=== PATIENT | female | born 1945 | race Hispanic/Latino ===

== ENCOUNTER 2017-11-18 13:34 | Emergency (ER) | payer BC ==
[2017-11-18 13:35] VITALS: BMI 27.1
[2017-11-18 14:04] VITALS: RESP 18; TEMP 97.5
--- NOTE | 2017-11-18 14:11 | ED PDOC ---
Arrival/HPI - General Chief Complaint: Back Pain Time Seen by Provider: 11/18/17 13:46 Historian: Patient, Family (sister) - History of Present Illness Narrative History of Present Illness (Text): 11/18/17 14:09 A 72 year old female, whose past medical history includes coronary stents x 2, pneumonia, cervix CA (10 yrs ago), hysterectomy, right hip replacement, kidney stones, abdominal hernia, and diverticulitis, presents to the emergency department complaining of left lower back and left-sided hip pain for several months. Describes pain as burning sensation and worsens with movement, ambulating and standing. Patient reports she has not been evaluated for symptoms. Notes also experiencing diarrhea for 1 1/2 weeks, and chronic leg cramps. Patient denies any dysuria, hematuria, nausea, vomiting, or any other complaints at this time. Currently takes Tylenol for pain with some relief. PMD: Dr. Rogers Time/Duration: Other (several months) Symptom Onset: Gradual Symptom Course: Unchanged Quality: Burning Past Medical History - Provider Review Nursing Documentation Reviewed: Yes - Infectious Disease Hx of Infectious Diseases: None - Tetanus Immunization Tetanus Immunization: Up to Date - Reproductive Menopause: Yes - Cardiac Hx Hypertension: Yes Other/Comment: varicose veins, 2 coronary stents - Pulmonary Hx Respiratory Disorders: No Hx Pneumonia: Yes - Neurological Other/Comment: bells palsy 3x's - HEENT Hx HEENT Disorder: Yes (reading glasses) - Renal Hx Kidney Stones: Yes (over 27 yrs ago) - Endocrine/Metabolic Hx Endocrine Disorders: No - Hematological/Oncological Hx Cancer: Yes (ca cervix about 10 yrs ago) Hx Chemotherapy: No (no chemo no radiation) - Integumentary Hx Dermatological Disorder: No - Musculoskeletal/Rheumatological Hx Falls: Yes (fell at work last year) - Gastrointestinal Hx Gastrointestinal Disorders: No Hx Diverticulitis: Yes - Genitourinary/Gynecological Hx Genitourinary Disorders: Yes - Psychiatric Hx Psychophysiologic Disorder: No Hx Substance Use: No - Surgical History Hx Cardiac Catheterization: Yes (STENT X2 2009) Hx Coronary Stent: Yes (x2 2009) Hx Hysterectomy: Yes (ca cervix about 10 yrs ago) Hx Orthopedic Surgery: Yes (R HIP REPLACEMENT 2003) Other/Comment: abd hernia sx, colon polyp removed, bilateral bunyons removed at 12 yrs old, right foot sx for bunyon and callous removal about 2 yrs ago, blader cyst and repair - Anesthesia Hx Anesthesia: Yes Hx Anesthesia Reactions: No Hx Malignant Hyperthermia: No - Suicidal Assessment Feels Threatened In Home Enviroment: No Family/Social History - Physician Review Nursing Documentation Reviewed: Yes Family/Social History: No Known Family HX Smoking Status: Former Smoker Hx Alcohol Use: No Hx Substance Use: No Hx Substance Use Treatment: No Allergies/Home Meds Allergies/Adverse Reactions: Allergies No Known Allergies Allergy (Verified 11/18/17 14:00) Home Medications: Home Meds Medication Instructions Recorded Confirmed Alendronate Sodium 70 mg PO MON 03/06/13 11/18/17 Aspirin [Aspir 81] 81 mg PO DAILY 03/06/13 11/18/17 Clopidogrel [Plavix] 75 mg PO DAILY 11/18/17 11/18/17 Losartan/Hydrochlorothiazide 1 each PO DAILY 11/18/17 11/18/17 [Losartan-Hctz 100-12.5 mg Tab] Simvastatin [Zocor] 20 mg PO DAILY 11/18/17 11/18/17 Review of Systems - Physician Review All systems were reviewed & negative as marked: Yes - Review of Systems Gastrointestinal: Diarrhea (past 1/2 weeks). absent: Nausea, Vomiting Genitourinary Female: absent: Dysuria, Hematuria Musculoskeletal: Back Pain (left lower side), Other (left hip pain) Physical Exam - Physical Exam Narrative Physical Exam (Text): Constitutional: No acute distress. Head: Normocephalic. Atraumatic. Eyes: PERRL. ENT: Moist mucous membranes. Neck: Supple. Cardiovascular: Regular rate. Chest: No tenderness. Respiratory: Clear to auscultation bilaterally. GI: Soft. Nontender. Nondistended. Back: No CVA tenderness. No midline tenderness. Musculoskeletal: No tenderness or swelling of extremities. Full ROM to hip. Skin: No rash. Neurologic: Alert, no focal deficit. Vital Signs Temp Pulse Resp BP Pulse Ox 11/18/17 16:18 73 18 121/63 99 11/18/17 14:03 97.5 F L 54 L 18 130/66 97 Medical Decision Making ED Course and Treatment: 11/18/17 14:12 Impression: 72 year old female with left lower back and left-side hip pain. Physical exam shows no rash; full ROM to hip; no midline tenderness to back. Plan: -- Abd/Pelvis CT -- Labs -- Toradol -- Urinalysis -- Reassess and disposition Progress Notes: - Lab Interpretations Lab Results: 11/18/17 14:20 11/18/17 14:20 Lab Results 11/18/17 15:00: Urine Color Yellow, Urine Appearance Clear, Urine pH 6.0, Ur Specific Cement 1.020, Urine Protein Negative, Urine Glucose (UA) Negative, Urine Ketones Negative, Urine Blood Negative, Urine Nitrate Negative, Urine Bilirubin Negative, Urine Urobilinogen 0.2, Ur Leukocyte Esterase Trace H, Urine RBC 1 - 3, Urine WBC 0 - 2, Ur Epithelial Cells None 11/18/17 14:20: Sodium 140, Potassium 3.7, Chloride 102, Carbon Dioxide 29, Anion Gap 13, BUN 17, Creatinine 0.7, Est GFR ( Amer) > 60, Est GFR (Non- Af Amer) > 60, Random Glucose 112 H, Calcium 9.9, Total Bilirubin 0.5, AST 36, ALT 42, Alkaline Phosphatase 56, Total Protein 7.1, Albumin 4.3, Globulin 2.8, Albumin/Globulin Ratio 1.5 11/18/17 14:20: WBC 6.7, RBC 4.04, Hgb 12.3, Hct 35.2 L, MCV 87.1, MCH 30.4, MCHC 34.9, RDW 13.2, Plt Count 193, MPV 9.0, Gran % 63.0, Lymph % (Auto) 21.5 L , Rankin % (Auto) 13.0 H, Eos % (Auto) 1.8, Baso % (Auto) 0.7, Gran # 4.21, Lymph # (Auto) 1.4, Rankin # (Auto) 0.9 H, Eos # (Auto) 0.1, Baso # (Auto) 0.05 I have reviewed the lab results: Yes - RAD Interpretation Radiology Orders: 11/18/17 14:12 ABD & PELVIS IV CONTRAST ONLY [CT] Stat - Medication Orders Current Medication Orders: Discontinued Medications Ketorolac Tromethamine (Toradol) 10 mg IVP STAT STA Stop: 11/18/17 14:12 Last Admin: 11/18/17 14:31 Dose: 10 mg MAR Pain Assessment Document 11/18/17 14:31 MOLLY (Rec: 11/18/17 14:31 MOLLY [id number]) Pain Reassessment Is this a pain reassessment? No Presence of Pain Presence of Pain Yes Pain Scale Used Pain Scale Used Numeric Location Left, Right or Bilateral Left Pain Location Body Site Hip Description Description Constant IVP Administration Document 11/18/17 14:31 LA (Rec: 11/18/17 14:31 LA [id number]) Charges for Administration # of IVP Administrations 1 Re-Assess: MAR Pain Assessment Document 11/18/17 15:31 LA (Rec: 11/18/17 15:59 LA [id number]) Pain Reassessment Is this a pain reassessment? Yes Sleep Is patient sleeping during reassessment? No Presence of Pain Presence of Pain No Pain Scale Used Pain Scale Used Numeric Location Left, Right or Bilateral Left Pain Location Body Site Hip Description Intensity of Pain at present 0 - Scribe Statement The provider has reviewed the documentation as recorded by the Leilani Wilson Provider Scribe Attestation: All medical record entries made by the Leilani were at my direction and personally dictated by me. I have reviewed the chart and agree that the record accurately reflects my personal performance of the history, physical exam, medical decision making, and the department course for this patient. I have also personally directed, reviewed, and agree with the discharge instructions and disposition. Disposition/Present on Arrival - Present on Arrival Any Indicators Present on Arrival: No History of DVT/PE: No History of Uncontrolled Diabetes: No Urinary Catheter: No History of Decub. Ulcer: No History Surgical Site Infection Following: None - Disposition Have Diagnosis and Disposition been Completed?: Yes Diagnosis: Back pain Disposition: HOME/ ROUTINE Disposition Time: 16:21 Patient Plan: Discharge Condition: STABLE Discharge Instructions (ExitCare): Low Back Pain (DC) Additional Instructions: FINDINGS: LOWER THORAX: Unremarkable. LIVER: Unremarkable. No gross lesion or ductal dilatation. GALLBLADDER AND BILE DUCTS: Unremarkable. PANCREAS: Unremarkable. No gross lesion or ductal dilatation. SPLEEN: Unremarkable. ADRENALS: Unremarkable. No mass. KIDNEYS AND URETERS: Unremarkable. No hydronephrosis. No solid mass. VASCULATURE: Unremarkable. No aortic aneurysm. BOWEL: Unremarkable. No obstruction. No gross mural thickening. APPENDIX: Normal appendix. PERITONEUM: Unremarkable. No free fluid. No free air. LYMPH NODES: Unremarkable. No enlarged lymph nodes. BLADDER: Unremarkable. REPRODUCTIVE: Unremarkable. BONES: No acute fracture. OTHER FINDINGS: None. IMPRESSION: No acute intra-abdominal findings. No evidence of diverticulitis or urolithiasis Referrals: Scooter Rogers MD [Primary Care Provider] - Follow up with primary Forms: [employer] ([place])
[2017-11-18 14:46] LABS: BASO # 0.05 K/mm3 (0.0-2.0); BASO % 0.7 % (0.0-3.0); EOS # 0.1 (0.0-0.7); EOS % 1.8 % (1.5-5.0); GRAN # 4.21 (1.4-6.5); HEMOGLOBIN 12.3 g/dL (12.0-16.0); LYMPH # 1.4 (1.2-3.4); LYMPH % 21.5 % (22.0-35.0); MEAN CELL VOLUME 87.1 fl (80.0-105.0); MEAN CORPUSCULAR HEMOGLOBIN 30.4 pg (25.0-35.0); MEAN CORPUSCULAR HGB CONC 34.9 g/dl (31.0-37.0); MONO # 0.9 (0.1-0.6); RBC 4.04 10^6/uL (3.5-6.1); RED CELL DISTRIBUTION WIDTH 13.2 % (11.5-14.5); WHITE BLOOD COUNT 6.7 10^3/ul (4.5-11.0)
[2017-11-18 14:56] LABS: ALB/GLOB RATIO 1.5 (1.1-1.8); ALBUMIN 4.3 g/dL (3.0-4.8); ALT/SGPT 42 U/L (7-56); AST/SGOT 36 U/L (14-36); BLOOD UREA NITROGEN 17 mg/dL (7-21); CALCIUM 9.9 mg/dL (8.4-10.5); GFR AFRICAN-AMERICAN > 60; GFR NON-AFRICAN AMERICAN > 60
[2017-11-18] MEDS ORDERED: Iohexol 350 MG/100 ML VIAL ONE (15:17)
[2017-11-18 15:26] LABS: URINE BILIRUBIN NEGATIVE (NEGATIVE); URINE BLOOD NEGATIVE (NEGATIVE); URINE GLUCOSE (UA) NEGATIVE (NEGATIVE); URINE LEUKOCYTE ESTERASE TRACE Leu/uL (NEGATIVE); URINE PROTEIN NEGATIVE mg/dL (<30 mg/dL); URINE UROBILINOGEN 0.2 E.U./dL (<1 E.U./dL)
[2017-11-18 15:27] LABS: URINE APPEARANCE CLEAR (CLEAR); URINE COLOR YELLOW (YELLOW)
[2017-11-18 15:39] LABS: URINE WBC 0 - 2 /hpf (0-6)
--- NOTE | 2017-11-18 16:18 | CT ---
PROCEDURE: CT Abdomen and Pelvis with contrast HISTORY: L flank pain, h/o diverticulitis, kidney stone COMPARISON: 03/12/2014 CT TECHNIQUE: Contrast dose: 100 cc of Omni 350 Radiation dose: Total exam DLP = 797 mGy-cm. This CT exam was performed using one or more of the following dose reduction techniques: Automated exposure control, adjustment of the mA and/or kV according to patient size, and/or use of iterative reconstruction technique. FINDINGS: LOWER THORAX: Unremarkable. LIVER: Unremarkable. No gross lesion or ductal dilatation. GALLBLADDER AND BILE DUCTS: Unremarkable. PANCREAS: Unremarkable. No gross lesion or ductal dilatation. SPLEEN: Unremarkable. ADRENALS: Unremarkable. No mass. KIDNEYS AND URETERS: Unremarkable. No hydronephrosis. No solid mass. VASCULATURE: Unremarkable. No aortic aneurysm. BOWEL: Unremarkable. No obstruction. No gross mural thickening. APPENDIX: Normal appendix. PERITONEUM: Unremarkable. No free fluid. No free air. LYMPH NODES: Unremarkable. No enlarged lymph nodes. BLADDER: Unremarkable. REPRODUCTIVE: Unremarkable. BONES: No acute fracture. OTHER FINDINGS: None. IMPRESSION: No acute intra-abdominal findings. No evidence of diverticulitis or urolithiasis
[2017-11-18 16:19] VITALS: BP 121/63; PULSE 73; O2SAT 99
== END 2017-11-18 16:59 | disposition home or self-care (01) ==
LOC: ED 13:34
DX: M54.5 Low back pain (principal); I10 Essential (primary) hypertension; Z87.891 Personal history of nicotine dependence
CPT/HCPCS: 74177; 80053; 81001; 85025; 87086; 87181; 96374; 99284; J1885; Q9967

== ENCOUNTER 2017-12-09 15:53 | Emergency (ER) | payer BC ==
[2017-12-09 16:01] VITALS: RESP 18; TEMP 98; BMI 28.1
--- NOTE | 2017-12-09 17:01 | ED PDOC ---
Arrival/HPI - General Time Seen by Provider: 12/09/17 16:00 - History of Present Illness Narrative History of Present Illness (Text): 12/09/17 16:34 Pt is a 72 ruben old female with a past medical history of falls and low back pain , that presents with leg, buttock, upper back/neck and rib pain s/p fall off a cement step (approx 7" in ht) while visiting family for [employer], 5 days ago. Pt described walking down the steps from the house and as she got to the last step , her right foot slipped off causing her knee to bend and she fell back on her upper back and hit her head. Pt got up with the help of family and 'walked it off'. Describes significant right anterior thigh bruising (due to being on Plavix) but had moderate to severe upper back and neck pain that night. She reports icing the leg, but feels now she has rib pain, especially when inhaling deeply. Denies LOC, numbness, loss of bladder or bowel, shortness of breath, chest pain or any other complaints. Time/Duration: < week Symptom Onset: Sudden Symptom Course: Improving, Intermittent Quality: Aching, Pressure Severity Level: 5 Activities at Onset: Rest, Sleeping Context: Home Past Medical History - Provider Review Nursing Documentation Reviewed: Yes - Travel History Have you recently traveled outside [place] w/in the past 3 mons?: No - Infectious Disease Hx of Infectious Diseases: None - Tetanus Immunization Tetanus Immunization: Up to Date - Cardiac Hx Hypertension: Yes Other/Comment: varicose veins, 2 coronary stents - Pulmonary Hx Respiratory Disorders: No Hx Pneumonia: Yes - Neurological Other/Comment: bells palsy 3x's - HEENT Hx HEENT Disorder: Yes (reading glasses) - Renal Hx Kidney Stones: Yes (over 27 yrs ago) - Endocrine/Metabolic Hx Endocrine Disorders: No - Hematological/Oncological Hx Cancer: Yes (ca cervix about 10 yrs ago) Hx Chemotherapy: No (no chemo no radiation) - Integumentary Hx Dermatological Disorder: No - Musculoskeletal/Rheumatological Hx Falls: Yes (fell at work last year) - Gastrointestinal Hx Gastrointestinal Disorders: No Hx Diverticulitis: Yes - Genitourinary/Gynecological Hx Genitourinary Disorders: Yes - Psychiatric Hx Psychophysiologic Disorder: No Hx Substance Use: No - Surgical History Hx Cardiac Catheterization: Yes (STENT X2 2009) Hx Coronary Stent: Yes (x2 2009) Hx Hysterectomy: Yes (ca cervix about 10 yrs ago) Hx Orthopedic Surgery: Yes (R HIP REPLACEMENT 2003) Other/Comment: abd hernia sx, colon polyp removed, bilateral bunyons removed at 12 yrs old, right foot sx for bunyon and callous removal about 2 yrs ago, blader cyst and repair - Anesthesia Hx Anesthesia: Yes Hx Anesthesia Reactions: No Hx Malignant Hyperthermia: No - Suicidal Assessment Feels Threatened In Home Enviroment: No Family/Social History - Physician Review Nursing Documentation Reviewed: Yes Family/Social History: Unknown Family HX Smoking Status: Former Smoker Hx Alcohol Use: No Hx Substance Use: No Hx Substance Use Treatment: No Allergies/Home Meds Allergies/Adverse Reactions: Allergies No Known Allergies Allergy (Verified 11/18/17 14:00) Home Medications: Home Meds Medication Instructions Recorded Confirmed Alendronate Sodium 70 mg PO MON 03/06/13 11/18/17 Aspirin [Aspir 81] 81 mg PO DAILY 03/06/13 11/18/17 Clopidogrel [Plavix] 75 mg PO DAILY 11/18/17 11/18/17 Losartan/Hydrochlorothiazide 1 each PO DAILY 11/18/17 11/18/17 [Losartan-Hctz 100-12.5 mg Tab] Simvastatin [Zocor] 20 mg PO DAILY 11/18/17 11/18/17 Review of Systems - Review of Systems Constitutional: Normal Eyes: Normal ENT: Normal Respiratory: Normal Cardiovascular: Normal Gastrointestinal: Normal Genitourinary Female: Normal Musculoskeletal: Normal, Back Pain, Neck Pain Skin: Normal Neurological: Normal Endocrine: Normal Hemo/Lymphatic: Normal Psychiatric: Normal Physical Exam Vital Signs Reviewed: Yes Vital Signs Temp Pulse Resp BP Pulse Ox 12/09/17 18:04 72 18 140/82 99 12/09/17 18:00 75 18 141/74 97 12/09/17 16:00 98.0 F 80 18 146/79 97 Temperature: Afebrile Blood Pressure: Normal Pulse: Regular Respiratory Rate: Normal Appearance: Positive for: Well-Appearing, Non-Toxic, Comfortable Pain Distress: Mild Mental Status: Positive for: Alert and Oriented X 3 - Systems Exam Head: Present: Atraumatic, Normocephalic Pupils: Present: PERRL Extroacular Muscles: Present: EOMI Conjunctiva: Present: Normal Mouth: Present: Moist Mucous Membranes Neck: Present: Normal Range of Motion Respiratory/Chest: Present: Clear to Auscultation, Good Air Exchange. No: Respiratory Distress, Accessory Muscle Use Cardiovascular: Present: Regular Rate and Rhythm, Normal S1, S2. No: Murmurs Abdomen: No: Tenderness, Distention, Peritoneal Signs Back: Present: Normal Inspection, Midline Tenderness (cervical paraspinals) Upper Extremity: Present: Normal Inspection, Normal ROM, NORMAL PULSES, Tenderness (cervical paraspinals). No: Cyanosis, Edema Lower Extremity: Present: Normal Inspection, NORMAL PULSES, Normal ROM, Tenderness (right anterior thigh), Swelling (right anterior thigh), Erythema ( right anterior thigh), Capillary Refill < 2 s. No: Edema, CALF TENDERNESS, Cyanosis, Deformity, Temperature Abnormalties Neurological: Present: GCS=15, CN II-XII Intact, Speech Normal Skin: Present: Warm, Dry, Normal Color, Abrasion (left glute ). No: Rashes Psychiatric: Present: Alert, Oriented x 3, Normal Insight, Normal Concentration Medical Decision Making ED Course and Treatment: 12/09/17 17:01 Impression Pt is a 72 ruben old female with a past medical history of falls and low back pain , that presents with leg, buttock, upper back/neck and rib pain s/p fall off a cement step (approx 7" Ht) while visiting family for [facility], 5 days ago. On exam, motor and nerve intact x 4, healing contusion of the right anterior thigh along with a minor left gluteal abrasion, point tenderness of the cervical and thoracic paraspinals, cervical ROM limited by pain Plan CS and TS XR Chest and Rib XR bilateral Progress Note 12/09/17 17:10 Discussed results and counselled on homecare; f/u with PMD Suggested Occupational therapy for fall prevention given that she has a h/o falling Ambulated well out of the ED - RAD Interpretation Narrative RAD Interpretations (Text): 12/09/17 17:46 RIGHT RIBS: No fracture or focal lesion visualized. LEFT RIBS: No fracture or focal lesion visualized. LUNGS: Clear. PLEURA: No pneumothorax or pleural fluid. CARDIOVASCULAR: Normal sized heart. No pulmonary vascular congestion. OTHER FINDINGS: None. IMPRESSION: Unremarkable radiographs of the chest and bilateral ribs. No displaced rib fracture. BONES: Mild rotary scoliosis. No fracture identified. DISC SPACES: Multilevel degenerative changes primarily disc space narrowing and non marginal osteophyte formation. SOFT TISSUES: Normal. No prevertebral soft tissue swelling. OTHER FINDINGS: None. IMPRESSION: No acute findings related to/accounting for the clinical presentation. Head CT w/o contrast IMPRESSION: No acute intracranial abnormalities. No significant findings to account for the clinical presentation. No significant interval change compared to the prior examination(s). 12/09/17 17:50 Radiology Orders: 12/09/17 16:28 CERVICAL SPINE AP & LATERAL [RAD] Stat 12/09/17 16:32 RIBS BILATERAL W/PA CHEST [RAD] Stat 12/09/17 17:16 HEAD W/O CONTRAST [CT] Stat Commercial Service Technician: Radiologist Disposition/Present on Arrival - Present on Arrival Any Indicators Present on Arrival: Yes History of DVT/PE: No History of Uncontrolled Diabetes: No Urinary Catheter: No History Surgical Site Infection Following: None - Disposition Have Diagnosis and Disposition been Completed?: Yes Diagnosis: Back pain due to injury, Contusion Disposition: HOME/ ROUTINE Disposition Time: 17:53 Patient Plan: Discharge Condition: GOOD Discharge Instructions (ExitCare): Taking Care of Bruises, Upper Back Pain (DC) , Preventing Falls, Standing Balance Exercises, Beginner, Bruised Rib (DC) Additional Instructions: Alona, thank you for letting us take care of you today. Your provider was LARISSA Conte. You were treated for a fall injury. The emergency medical care you received today was directed at your acute symptoms. If you were prescribed any medication, please fill it and take as directed. It may take several days for your symptoms to resolve. Return to the Emergency Department if your symptoms worsen, do not improve, or if you have any other problems. We recommend that you talk to your doctor about receiving either Physical Therapy or Occupational Therapy that can assist you with a Fall Prevention Program. Please contact your doctor or call one of the physicians/clinics you have been referred to that are listed on the Patient Visit Information form that is included in your discharge packet. Bring any paperwork you were given at discharge with you along with any medications you are taking to your follow up visit. Our treatment cannot replace ongoing medical care by a primary care provider (PCP) outside of the emergency department. Thank you for allowing the [facility] team to be part of your care today. Prescriptions: Acetaminophen [Acetaminophen Extra Strength] 500 mg PO Q6 #20 tablet Referrals: Scooter Rogers MD [Primary Care Provider] - Follow up with primary Forms: WORK NOTE
--- NOTE | 2017-12-09 17:31 | RAD ---
PROCEDURE: Cervical Spine Radiographs. HISTORY: Posttraumatic pain COMPARISON: None. FINDINGS: BONES: Mild rotary scoliosis. No fracture identified. DISC SPACES: Multilevel degenerative changes primarily disc space narrowing and non marginal osteophyte formation. SOFT TISSUES: Normal. No prevertebral soft tissue swelling. OTHER FINDINGS: None. IMPRESSION: No acute findings related to/accounting for the clinical presentation.
--- NOTE | 2017-12-09 17:32 | RAD ---
PROCEDURE: Radiographs of the chest and bilateral ribs HISTORY: Unspecified injury. COMPARISON: None available. TECHNIQUE: Frontal radiograph of the chest and multiple oblique radiographs of the bilateral ribs were obtained. FINDINGS: RIGHT RIBS: No fracture or focal lesion visualized. LEFT RIBS: No fracture or focal lesion visualized. LUNGS: Clear. PLEURA: No pneumothorax or pleural fluid. CARDIOVASCULAR: Normal sized heart. No pulmonary vascular congestion. OTHER FINDINGS: None. IMPRESSION: Unremarkable radiographs of the chest and bilateral ribs. No displaced rib fracture.
--- NOTE | 2017-12-09 17:50 | CT ---
PROCEDURE: CT HEAD WITHOUT CONTRAST. HISTORY: head injury COMPARISON: 04/25/2015. CT head 04/26/2015 MRI brain TECHNIQUE: Axial computed tomography images were obtained through the head/brain without intravenous contrast. Coronal and sagittal reconstructed images. Radiation dose: Total exam DLP = 907.95 mGy-cm. This CT exam was performed using one or more of the following dose reduction techniques: Automated exposure control, adjustment of the mA and/or kV according to patient size, and/or use of iterative reconstruction technique. FINDINGS: HEMORRHAGE: No intracranial hemorrhage. BRAIN: No mass effect or edema. Cortical atrophy, periventricular small vessel disease. VENTRICLES: Unremarkable. No hydrocephalus. CALVARIUM: Unremarkable. PARANASAL SINUSES: Unremarkable as visualized. No significant inflammatory changes. MASTOID AIR CELLS: Unremarkable as visualized. No inflammatory changes. OTHER FINDINGS: None. IMPRESSION: No acute intracranial abnormalities. No significant findings to account for the clinical presentation. No significant interval change compared to the prior examination(s).
[2017-12-09 18:23] VITALS: BP 140/82; PULSE 72; O2SAT 99
== END 2017-12-09 18:04 | disposition home or self-care (01) ==
LOC: ED 15:53
DX: M54.9 Dorsalgia, unspecified (principal); S70.11XA Contusion of right thigh, initial encounter; W10.9XXA Fall (on) (from) unspecified stairs and steps, initial encounter; Y92.89 Other specified places as the place of occurrence of the external cause

== ENCOUNTER 2018-06-09 06:25 | Day surgery (SDC) | payer BC ==
[2018-06-06 16:05] VITALS: BMI 27.3
[2018-06-09] MEDS ORDERED: Sodium Chloride 0.9% 1,000 ML IV SCH (07:45)
[2018-06-09] MEDS ORDERED: Propofol 10 mg/ml Inj (20 ML) ONE (07:48)
[2018-06-09] MEDS ORDERED: Etomidate 20 mg/10ml Inj IV ONE (07:48)
[2018-06-09] MEDS ORDERED: Phenylephrine 10 mg/ml Inj ONE (07:59)
[2018-06-09] MEDS ORDERED: ePHEDrine 50 mg/ml Inj ONE (08:12)
[2018-06-09 09:14] VITALS: O2SAT 98
[2018-06-09 10:38] VITALS: BP 129/61; PULSE 51; RESP 16; TEMP 97.7
== END 2018-06-09 10:20 | disposition home or self-care (01) ==
LOC: ENDO 06:25
PROVIDERS: ATTEND Specialist
DX: D12.3 Benign neoplasm of transverse colon (principal); K63.5 Polyp of colon; K57.30 Diverticulosis of large intestine without perforation or abscess without bleeding; K59.00 Constipation, unspecified; K64.8 Other hemorrhoids; I25.10 Atherosclerotic heart disease of native coronary artery without angina pectoris; M81.0 Age-related osteoporosis without current pathological fracture
CPT/HCPCS: 45385; 88305; J2001; J2370; J2704; J7030; J7040

== ENCOUNTER 2018-08-24 16:09 | Observation (INO) | payer BC ==
[2018-08-24 16:09] VITALS: BMI 27.3
[2018-08-24] MEDS ORDERED: Morphine 4 mg/ml ISec IVP STA ×2 (16:30→18:03)
[2018-08-24] MEDS ORDERED: TDAP Vaccine 0.5 mL Syr IM ONE (16:30)
[2018-08-24 17:16] LABS: BASO # 0.03 K/mm3 (0.0-2.0); BASO % 0.4 % (0.0-3.0); EOS # 0.1 (0.0-0.7); EOS % 1.9 % (1.5-5.0); GRAN # 4.92 (1.4-6.5); GRAN % 71.1 % (50.0-68.0); LYMPH # 1.3 (1.2-3.4); LYMPH % 18.4 % (22.0-35.0); MEAN CELL VOLUME 86.6 fl (80.0-105.0); MEAN CORPUSCULAR HEMOGLOBIN 29.9 pg (25.0-35.0); MEAN CORPUSCULAR HGB CONC 34.5 g/dl (31.0-37.0); MEAN PLATELET VOLUME 8.6 fl (7.0-11.0); MONO # 0.6 (0.1-0.6); MONO % 8.2 % (1.0-6.0); RBC 4.02 10^6/uL (3.5-6.1); RED CELL DISTRIBUTION WIDTH 12.9 % (11.5-14.5); WHITE BLOOD COUNT 6.9 10^3/uL (4.5-11.0)
[2018-08-24 17:19] LABS: INR 0.93; PARTIAL THROMBOPLASTIN TIME 28.1 Seconds (25.1-36.5); PROTHROMBIN TIME 10.6 SECONDS (9.4-12.5)
--- NOTE | 2018-08-24 17:24 | ED PDOC ---
Arrival/HPI - General Chief Complaint: Trauma Time Seen by Provider: 08/24/18 16:20 Historian: Patient, Family (Sister) - History of Present Illness Time/Duration: Prior to Arrival Symptom Onset: Sudden Symptom Course: Unchanged Severity Level: Severe Context: Walking Associated Symptoms (Text): 08/24/18 17:21 patient tripped and fell down 6 outdoor steps just prior to arrival injuring her lower back and her left lateral proximal tibia. She hit her head, but there was no loss of consciousness syncope dizziness lightheadedness numbness tingling or paresthesias. No weakness. No neck pain. No chest pain palpitations or dyspnea. No abdominal pain nausea or vomiting. No other extremity trauma. She needs tetanus immunization. Past Medical History - Infectious Disease Hx of Infectious Diseases: None - Tetanus Immunization Tetanus Immunization: Up to Date - Cardiac Hx Pacemaker: No - Pulmonary Hx Respiratory Disorders: No Hx Pneumonia: Yes - Neurological Other/Comment: bells palsy 3x's - HEENT Hx HEENT Disorder: Yes (reading glasses) - Renal Hx Kidney Stones: Yes (over 27 yrs ago) - Endocrine/Metabolic Hx Endocrine Disorders: No - Hematological/Oncological Hx Blood Transfusions: Yes Hx Blood Transfusion Reaction: No - Integumentary Hx Dermatological Disorder: No - Musculoskeletal/Rheumatological Hx Musculoskeletal Disorders: Yes - Gastrointestinal Hx Gastrointestinal Disorders: No Hx Diverticulitis: Yes - Genitourinary/Gynecological Hx Genitourinary Disorders: Yes - Psychiatric Hx Emotional Abuse: No Hx Physical Abuse: No Hx Substance Use: No - Surgical History Hx Cardiac Catheterization: Yes (STENT X2 2009) Hx Coronary Stent: Yes (x2 2009) Hx Hysterectomy: Yes (ca cervix about 10 yrs ago) Hx Orthopedic Surgery: Yes (R HIP REPLACEMENT 2003) Other/Comment: abd hernia sx, colon polyp removed, bilateral bunyons removed at 12 yrs old, right foot sx for bunyon and callous removal about 2 yrs ago, blader cyst and repair - Anesthesia Hx Anesthesia Reactions: No Hx Malignant Hyperthermia: No - Suicidal Assessment Feels Threatened In Home Enviroment: No Family/Social History - Physician Review Nursing Documentation Reviewed: Yes Family/Social History: Unknown Family HX Smoking Status: Former Smoker (quit smoking many years ago) Hx Alcohol Use: Yes (SOCIAL) Frequency of alcohol use: Socially Hx Substance Use: No Hx Substance Use Treatment: No Allergies/Home Meds Allergies/Adverse Reactions: Allergies No Known Allergies Allergy (Verified 08/24/18 16:25) Home Medications: Home Meds Medication Instructions Recorded Confirmed Alendronate Sodium 70 mg PO MON 03/06/13 08/24/18 Aspirin [Aspir 81] 81 mg PO DAILY 03/06/13 08/24/18 Clopidogrel [Plavix] 75 mg PO DAILY 11/18/17 08/24/18 Losartan/Hydrochlorothiazide 1 each PO DAILY 11/18/17 08/24/18 [Losartan-Hctz 100-12.5 mg Tab] Simvastatin [Zocor] 20 mg PO DAILY 11/18/17 08/24/18 Cholecalciferol (Vitamin D3) 1,000 unit PO DAILY 06/06/18 08/24/18 [Vitamin D3] Gabapentin [Neurontin] 100 mg PO DAILY 06/06/18 08/24/18 Multivitamin [Multivitamins] 1 each PO DAILY 06/06/18 08/24/18 Ranitidine HCl [Sunmark Acid 150 mg PO BID 06/06/18 08/24/18 Machine Shop Supervisor] Topiramate [Topamax] 50 mg PO HS 06/06/18 08/24/18 Review of Systems - Physician Review All systems were reviewed & negative as marked: Yes - Review of Systems Constitutional: Normal Respiratory: Normal Cardiovascular: Normal Gastrointestinal: Normal Musculoskeletal: Back Pain. absent: Neck Pain Neurological: Normal. absent: Headache, Dizziness, Focal Weakness Physical Exam Vital Signs Temp Pulse Resp BP Pulse Ox 08/24/18 16:21 97.5 F L 51 L 18 134/70 100 Temperature: Afebrile Blood Pressure: Normal Pulse: Regular Respiratory Rate: Normal Appearance: Positive for: Well-Appearing, Non-Toxic, Comfortable, Uncomfortable Pain Distress: Moderate Mental Status: Positive for: Alert and Oriented X 3 - Systems Exam Head: Present: Atraumatic, Normocephalic. No: Tenderness, Contusion, Swelling, Ecchymosis, Abrasion, Laceration Pupils: Present: PERRL Extroacular Muscles: Present: EOMI Conjunctiva: Present: Normal Ears: Present: NORMAL TM, Normal Canal. No: Erythema Neck: Present: Normal Range of Motion. No: MIDLINE TENDERNESS, Paraspinal Tenderness Respiratory/Chest: Present: Clear to Auscultation, Good Air Exchange, Decreased Breath Sounds. No: Respiratory Distress, Accessory Muscle Use, Tender to Palpation Cardiovascular: Present: Regular Rate and Rhythm, Normal S1, S2. No: Murmurs Abdomen: No: Tenderness, Distention, Peritoneal Signs, Rebound, Guarding Back: Present: Normal Inspection, Midline Tenderness (lower lumbar midline tenderness), Paraspinal Tenderness (lower lumbar bilateral paraspinous lumbar tenderness). No: CVA Tenderness Upper Extremity: Present: Normal Inspection. No: Cyanosis, Edema Lower Extremity: Present: Normal ROM, Tenderness, Swelling, Deformity, Neurovascularly Intact, Other (large left lateral proximal tibia and fibular hematoma with tenderness swelling abrasion. Full range of motion.). No: Normal Inspection, Edema, CALF TENDERNESS Neurological: Present: GCS=15, CN II-XII Intact, Speech Normal, Motor Func Grossly Intact, Normal Cerebellar Funct Skin: Present: Warm, Dry, Normal Color. No: Rashes Psychiatric: Present: Alert, Oriented x 3, Normal Insight, Normal Concentration Medical Decision Making ED Course and Treatment: 08/24/18 18:03 patient has returned from CT scan and x-ray. Minimal improvement in her pain. Additional morphine has been ordered. 08/24/18 18:39 patient lives alone and does not think that she will be able to ambulate and care for herself. Discussed with and patient will be placed on a [facility] observation bed. 08/24/18 18:39 CT scan of the lumbosacral spine as read by the radiologist shows no acute fracture. - Lab Interpretations Lab Results: 08/24/18 17:05 Lab Results 08/24/18 17:05: PT 10.6, INR 0.93, APTT 28.1 08/24/18 17:05: WBC 6.9, RBC 4.02, Hgb 12.0, Hct 34.8 L, MCV 86.6, MCH 29.9, MCHC 34.5, RDW 12.9, Plt Count 200, MPV 8.6, Gran % 71.1 H, Lymph % (Auto) 18.4 L, [place] % (Auto) 8.2 H, Eos % (Auto) 1.9, Baso % (Auto) 0.4, Gran # 4.92, Lymph # (Auto) 1.3, [place] # (Auto) 0.6, Eos # (Auto) 0.1, Baso # (Auto) 0.03 - RAD Interpretation Radiology Orders: 08/24/18 16:27 LUMBAR SPINE W/O CONTRAST [CT] Stat 08/24/18 16:28 TIBIA FIBULA LEFT [RAD] Stat 08/24/18 16:29 CHEST ONE VIEW [RAD] Stat chest one view shows no infiltrate effusion or cardiomegaly or pneumothorax. Left tibia and fibula shows no fracture or dislocation. Chinese Instructor: ED Physician - Medication Orders Current Medication Orders: Discontinued Medications Morphine Sulfate (Morphine) 4 mg IVP STAT STA Stop: 08/24/18 16:31 Last Admin: 08/24/18 17:05 Dose: 4 mg MAR Pain Assessment Document 08/24/18 17:05 [facility] (Rec: 08/24/18 17:05 [id number] Pain Reassessment Is this a pain reassessment? Yes Sleep Is patient sleeping during reassessment? No Presence of Pain Presence of Pain Yes Pain Scale Used Protocol: PSCALES Pain Scale Used Numeric Location Left, Right or Bilateral Bilateral Pain Location Body Site Virgen Leg Description Description Constant IVP Administration Document 08/24/18 17:05 [facility] (Rec: 08/24/18 17:05 [id number] Charges for Administration # of IVP Administrations 1 Ondansetron HCl (Zofran Inj) 4 mg IVP ONCE ONE Stop: 08/24/18 16:31 Last Admin: 08/24/18 17:04 Dose: 4 mg IVP Administration Document 08/24/18 17:04 [facility] (Rec: 08/24/18 17:04 [id number]) Charges for Administration # of IVP Administrations 1 Tetanus/Reduced Diphtheria/Acell Pertussis (Boostrix Vaccine Inj) 0.5 ml IM .ONCE ONE Stop: 08/24/18 16:31 Last Admin: 08/24/18 17:05 Dose: 0.5 ml MAR Immunization Data Document 08/24/18 17:05 [facility] (Rec: 08/24/18 17:05 [id number]) Immunization Data Vaccine Information Sheet Given Yes Disposition/Present on Arrival - Present on Arrival Any Indicators Present on Arrival: No History of DVT/PE: No History of Uncontrolled Diabetes: No Urinary Catheter: No History of Decub. Ulcer: No History Surgical Site Infection Following: None - Disposition Have Diagnosis and Disposition been Completed?: Yes Diagnosis: Back contusion, Leg abrasion, Contusion of leg, Fall Disposition: HOSPITALIZED Disposition Time: 18:40 Patient Plan: Observation Condition: GOOD Forms: [facility] (Palestinian)
[2018-08-24 17:26] LABS: ALB/GLOB RATIO 1.5 (1.1-1.8); ALBUMIN 4.3 g/dL (3.0-4.8); ALT/SGPT 39 U/L (7-56); AST/SGOT 37 U/L (14-36); BLOOD UREA NITROGEN 23 mg/dL (7-21); CALCIUM 9.3 mg/dL (8.4-10.5); GFR NON-AFRICAN AMERICAN 54
[2018-08-24 17:38] LABS: TROPONIN I < 0.01 ng/mL
--- NOTE | 2018-08-24 18:37 | CT ---
Date of service: 08/24/2018 CT lumbar spine without IV contrast Indication: trauma Comparison: MRI lumbar spine performed 05/22/16 Technique: Noncontrast axial images of the lumbar spine were provided. Sagittal and coronal reformatted images were generated and reviewed. This CT exam was performed using 1 or more of the following dose reduction techniques: Automated exposure control, adjustment of the MAA and/or kV according to patient size, and/or use of iterative reconstruction technique. Total exam DLP: 1082.74 MGy-cm Findings: Diffuse osseous demineralization severely limits evaluation for acute fracture lines. No acute displaced fracture evident. Extensive multilevel degenerative changes including osteophyte formation. Intervertebral disc space narrowing most prominent at L4-L5 and L5-S1. Vertebral body heights appear within normal limits. Alignment appears satisfactory. No acute fracture or subluxation identified. Paraspinal soft tissues appear unremarkable. Limited visualization of the intra-abdominal and intrapelvic contents: Diverticulosis without CT evidence of acute diverticulitis. Bilateral nodular hypertrophy of the adrenal glands. Dense atherosclerotic calcification of the abdominal aorta and branches. Aortic ectasia. Small abdominal aortic aneurysm measuring approximately 2.2 cm in AP dimension. Impression: Severe diffuse osseous demineralization markedly limits evaluation for acute fracture lines. No acute displaced fracture appreciated. Recommend MRI for further evaluation if indicated. Multilevel degenerative changes. Limited visualization of the intra-abdominal and intrapelvic contents: Diverticulosis without CT evidence of acute diverticulitis. Bilateral nodular hypertrophy of the adrenal glands. Dense atherosclerotic calcification of the abdominal aorta and branches. Aortic ectasia. Small abdominal aortic aneurysm measuring approximately 2.2 cm in AP dimension.
[2018-08-24] MEDS ORDERED: Sodium Chloride 0.9% 1,000 ML IV SCH (23:45)
[2018-08-24] MEDS ORDERED: Morphine 2 mg/ml ISec IVP PRN (23:51)
--- NOTE | 2018-08-25 01:47 | CP.PCM.HP ---
<JosuéBriana solomon - Last Filed: 08/27/18 21:57> History of Present Illness - History of Present Illness History of Present Illness: Briana Moses, PGY-1 H&P Note for Dr. Nelson: CC: Fall Pt is a 72 yo F with pmhx of HTN, HLD, CAD s/p 2 stents last in 2009, who presents to the ED for fall sustained at home. She states that she was attempting to get out of her house in the evening and was attempting to close the door behind her. She states that she typically does not have enough room for the door to close and for her to stand next to the door as its closing so she has to take one step down while closing the door. She reports that as she was going down the steps to close the door she turned around quickly and just lost her balance and fell down 6 steps of concrete stairs. She denies any chest pain, palpitations, lightheadedness, dizziness, or LOC before or after the fall. She also denies any tongue biting, bladder or bowel incontinence. She claims that she remembers everything before and after the incident and states that as she fell, she hit her head, her L shoulder and L leg. She denies any numbness, or tingling anywhere at this time and admits to pain in her upper shoulder, and L leg. She is currently denying any chest pain, palpitaitons, SOB, headaches, lightheadedness, dizziness, numbness, tingling, weakness, abd pain, n/v, c/d, dysuria, or frequency. Pmhx:HTN, HLD, CAD s/p 2 stents last in 2009, Pshx: L hip replacement 10 years ago, hysterectomy, 15 years ago Meds: All: NKDA Social: Quit smoking 10+ years ago, Social EtOH use, denies illicit drug use Fam: Mom: DM, HTN, CVA PMD: Dr. Rogers Pharm: [id number] Present on Admission - Present on Admission Any Indicators Present on Admission: No Review of Systems - Review of Systems Review of Systems: 12 point ROS reviewed and negative except mentioned in HPI above. Past Patient History - Infectious Disease Hx of Infectious Diseases: None - Tetanus Immunizations Tetanus Immunization: Up to Date - Past Social History Smoking Status: Former Smoker (quit smoking many years ago) - CARDIAC Hx Pacemaker: No - PULMONARY Hx Respiratory Disorders: No Hx Pneumonia: Yes - NEUROLOGICAL Other/Comment: bells palsy 3x's - HEENT Hx HEENT Problems: Yes (reading glasses) - RENAL Hx Kidney Stones: Yes (over 27 yrs ago) - ENDOCRINE/METABOLIC Hx Endocrine Disorders: No - HEMATOLOGICAL/ONCOLOGICAL Hx Blood Transfusions: Yes Hx Blood Transfusion Reaction: No - INTEGUMENTARY Hx Dermatological Problems: No - MUSCULOSKELETAL/RHEUMATOLOGICAL Hx Musculoskeletal Disorders: Yes - GASTROINTESTINAL Hx Gastrointestinal Disorders: No Hx Diverticulitis: Yes - GENITOURINARY/GYNECOLOGICAL Hx Genitourinary Disorders: Yes - PSYCHIATRIC Hx Emotional Abuse: No Hx Physical Abuse: No Hx Substance Use: No - SURGICAL HISTORY Hx Cardiac Catheterization: Yes (STENT X2 2009) Hx Coronary Stent: Yes (x2 2009) Hx Hysterectomy: Yes (ca cervix about 10 yrs ago) Hx Orthopedic Surgery: Yes (R HIP REPLACEMENT 2003) Other/Comment: abd hernia sx, colon polyp removed, bilateral bunyons removed at 12 yrs old, right foot sx for bunyon and callous removal about 2 yrs ago, blader cyst and repair - ANESTHESIA Hx Anesthesia Reactions: No Hx Malignant Hyperthermia: No Meds Allergies/Adverse Reactions: Allergies Allergy/AdvReac Type Severity Reaction Status Date / Time No Known Allergies Allergy Verified 08/24/18 16:25 Physical Exam - Constitutional Appears: Well, Non-toxic, No Acute Distress - Head Exam Head Exam: ATRAUMATIC, NORMAL INSPECTION, NORMOCEPHALIC - Eye Exam Eye Exam: EOMI, Normal appearance, PERRL - Respiratory Exam Respiratory Exam: Clear to Auscultation Bilateral, NORMAL BREATHING PATTERN. absent: Accessory Muscle Use, Decreased Breath Sounds, Rales, Rhonchi, Wheezes, Respiratory Distress, Stridor - Cardiovascular Exam Cardiovascular Exam: RRR, +S1, +S2. absent: Gallop, Rubs - GI/Abdominal Exam GI & Abdominal Exam: Normal Bowel Sounds, Soft. absent: Distended, Firm, Guarding, Rebound, Tenderness - Extremities Exam Extremities exam: Positive for: normal capillary refill. Negative for: calf tenderness, pedal edema Additional comments: Pt has noted abrasions on LE b/l. Pt is also noted to have a hematoma on the L leg. - Back Exam Back exam: muscle spasm, NORMAL INSPECTION, paraspinal tenderness (present in the L thoracic region, close to the L shoulder ). absent: CVA tenderness (L), CVA tenderness (R), vertebral tenderness - Neurological Exam Neurological exam: Alert, Oriented x3 - Psychiatric Exam Psychiatric exam: Normal Affect, Normal Mood - Skin Skin Exam: Dry, Intact (except for where noted above.), Normal Color, Warm Results - Vital Signs Recent Vital Signs: Last Vital Signs Temp 97.4 F L 08/24/18 21:20 Pulse 55 L 08/24/18 21:20 Resp 18 08/24/18 21:20 BP 118/60 08/24/18 21:20 Pulse Ox 95 08/24/18 21:20 - Labs Result Diagrams: 08/24/18 17:05 08/24/18 17:05 Labs: Laboratory Results - last 24 hr 08/24/18 08/24/18 08/24/18 17:05 17:05 17:05 WBC 6.9 RBC 4.02 Hgb 12.0 Hct 34.8 L MCV 86.6 MCH 29.9 MCHC 34.5 RDW 12.9 Plt Count 200 MPV 8.6 Gran % 71.1 H Lymph % (Auto) 18.4 L [place] % (Auto) 8.2 H Eos % (Auto) 1.9 Baso % (Auto) 0.4 Gran # 4.92 Lymph # (Auto) 1.3 [place] # (Auto) 0.6 Eos # (Auto) 0.1 Baso # (Auto) 0.03 PT 10.6 INR 0.93 APTT 28.1 Sodium 139 Potassium 3.4 L Chloride 101 Carbon Dioxide 30 Anion Gap 11 BUN 23 H Creatinine 1.0 Est GFR ( Amer) > 60 Est GFR (Non-Af Amer) 54 Random Glucose 125 H Calcium 9.3 Magnesium 2.4 H Total Bilirubin 0.6 AST 37 H ALT 39 Alkaline Phosphatase 61 Lactate Dehydrogenase 556 Total Creatine Kinase 113 Troponin I < 0.01 Total Protein 7.2 Albumin 4.3 Globulin 2.9 Albumin/Globulin Ratio 1.5 Assessment & Plan - Assessment and Plan (Free Text) Assessment: Pt is a 72 yo F with pmhx of HTN, HLD, CAD s/p 2 stents last in 2009, who presents to the ED for fall sustained at home. CT head done, and showed no acute intracranial bleed, read by me. F/u official reads for all imaging. Plan: 1. Mechanical Fall: - Pt states she lost balance while attempting to close front door of home - PT ordered - Bacitracin ointment for superficial scrapes on legs - F/u official reads for CT of head and XR of Legs - Flexeril 5mg TID PRN - NS @ 60 cc/hr - Morphine 2 q6 PRN - Monitor neuro and vascular on L leg q4 to assess monitor for signs of compartment syndrome 2. Hx of HTN: - Cont home Losartan, hctz 3. CAD s/p 2 stents: - Cont Asa, Plavix 4. PPX: GI: Protonix 40 DVT: Heparin Case seen and discussed with Dr. Omar Moses PGY-1 <Gilda Nelson - Last Filed: 08/28/18 19:10> Results - Vital Signs Recent Vital Signs: Last Vital Signs Temp 98.1 F 08/25/18 14:00 Pulse 70 08/25/18 14:00 Resp 18 08/25/18 14:00 BP 117/50 L 08/25/18 14:00 Pulse Ox 100 08/25/18 14:00 - Labs Result Diagrams: 08/25/18 07:30 08/25/18 07:30 Attending/Attestation - Attestation I have personally seen and examined this patient.: Yes I have fully participated in the care of the patient.: Yes I have reviewed all pertinent clinical information: Yes
[2018-08-25] MEDS: Bacitracin 500 Units/gm Oint Foilpak UD TOP SCH ×3 (01:55→17:01)
[2018-08-25] MEDS ORDERED: Influenza Vaccine 60 mcg/0.5 mL SYR (4YR UP) IM ONE (04:08)
[2018-08-25] MEDS ORDERED: Pneumococcal 23-Valent Vaccine IM ONE (04:08)
[2018-08-25] MEDS ORDERED: Pantoprazole 40 mg EC Tab PO SCH (06:00)
[2018-08-25 07:46] LABS: BASO # 0.04 K/mm3 (0.0-2.0); BASO % 0.5 % (0.0-3.0); EOS # 0.1 (0.0-0.7); EOS % 0.6 % (1.5-5.0); GRAN # 5.78 (1.4-6.5); GRAN % 70.5 % (50.0-68.0); LYMPH # 1.4 (1.2-3.4); LYMPH % 17.2 % (22.0-35.0); MEAN CORPUSCULAR HEMOGLOBIN 30.1 pg (25.0-35.0); MEAN CORPUSCULAR HGB CONC 34.2 g/dl (31.0-37.0); MEAN PLATELET VOLUME 8.8 fl (7.0-11.0); MONO # 0.9 (0.1-0.6); MONO % 11.2 % (1.0-6.0); RBC 3.66 10^6/uL (3.5-6.1); RED CELL DISTRIBUTION WIDTH 13.1 % (11.5-14.5); WHITE BLOOD COUNT 8.2 10^3/uL (4.5-11.0)
[2018-08-25 08:03] LABS: ALB/GLOB RATIO 1.5 (1.1-1.8); ALT/SGPT 36 U/L (7-56); AST/SGOT 29 U/L (14-36); BLOOD UREA NITROGEN 22 mg/dL (7-21); GFR NON-AFRICAN AMERICAN > 60
--- NOTE | 2018-08-25 08:39 | CT ---
Date of service: 08/24/2018 PROCEDURE: CT HEAD WITHOUT CONTRAST. HISTORY: Fall, hit head COMPARISON: None available. TECHNIQUE: Axial computed tomography images were obtained through the head/brain without intravenous contrast. Radiation dose: Total exam DLP = 898.0 mGy-cm. This CT exam was performed using one or more of the following dose reduction techniques: Automated exposure control, adjustment of the mA and/or kV according to patient size, and/or use of iterative reconstruction technique. FINDINGS: HEMORRHAGE: No intracranial hemorrhage. BRAIN: No mass effect or edema. There is chronic microvascular ischemic changes. VENTRICLES: Unremarkable. No hydrocephalus. CALVARIUM: Unremarkable. PARANASAL SINUSES: Unremarkable as visualized. No significant inflammatory changes. MASTOID AIR CELLS: Unremarkable as visualized. No inflammatory changes. OTHER FINDINGS: None. IMPRESSION: No acute hemorrhage.
--- NOTE | 2018-08-25 09:15 | CARD ---
APPROVED REPORT Date of service: 08/24/2018 EKG Measurement Heart [id number] <Conclusion> Sinus bradycardia Nonspecific ST and T wave abnormality
[2018-08-25 09:29] VITALS: RESP 18
--- NOTE | 2018-08-25 09:37 | RAD ---
Date of service: 08/24/2018 PROCEDURE: CHEST RADIOGRAPH, 1 VIEW HISTORY: or COMPARISON: None available. FINDINGS: LUNGS: Clear. PLEURA: No pneumothorax or pleural fluid seen. CARDIOVASCULAR: Aortic calcification. Mild cardiomegaly OSSEOUS STRUCTURES: No significant abnormalities. VISUALIZED UPPER ABDOMEN: Normal. OTHER FINDINGS: None. IMPRESSION: No active disease.
--- NOTE | 2018-08-25 09:58 | RAD ---
Date of service: 08/24/2018 PROCEDURE: Radiographs of the left tibia and fibula. HISTORY: trauma COMPARISON: None available. TECHNIQUE: Frontal and lateral views obtained. FINDINGS: BONES: No fracture or destructive lesion. JOINT SPACES: Unremarkable. OTHER FINDINGS: None. IMPRESSION: Unremarkable radiographs of the left tibia and fibula.
[2018-08-25] MEDS ORDERED: [UNRECOGNIZED DRUG - OTHER] PO SCH (10:00)
[2018-08-25] MEDS ORDERED: LOSARTAN PO SCH (10:00)
[2018-08-25] MEDS ORDERED: HYDROCHLOROTHIAZIDE PO SCH (10:00)
[2018-08-25] MEDS ORDERED: Oxycodone/Acetaminophen 5/325 mg Tab PO PRN (11:03)
[2018-08-25 16:19] VITALS: BP 117/50; PULSE 70; TEMP 98.1; O2SAT 100
--- NOTE | 2018-08-25 16:52 | CP.PCM.DIS ---
Provider - Provider Date of Admission: 08/24/18 18:40 Attending physician: Tanya Painter MD Primary care physician: NO FAMILY PROVIDER Consults: 08/25/18 04:04 Social Work Referral Routine Comment: met criteria Physician Instructions: Reason For Exam: met criteria 08/25/18 04:15 Nursing Referral for Wound Care Routine Comment: Physician Instructions: Reason For Exam: met criteria Time Spent in preparation of Discharge (in minutes): 35 Hospital Course - Lab Results Lab Results: Most Recent Lab Values WBC 8.2 10^3/uL (4.5-11.0) 08/25/18 07:30 RBC 3.66 10^6/uL (3.5-6.1) 08/25/18 07:30 Hgb 11.0 g/dL (12.0-16.0) L 08/25/18 07:30 Hct 32.2 % (36.0-48.0) L 08/25/18 07:30 MCV 88.0 fl (80.0-105.0) 08/25/18 07:30 MCH 30.1 pg (25.0-35.0) 08/25/18 07:30 MCHC 34.2 g/dl (31.0-37.0) 08/25/18 07:30 RDW 13.1 % (11.5-14.5) 08/25/18 07:30 Plt Count 200 10^3/uL (120.0-450.0) 08/25/18 07:30 MPV 8.8 fl (7.0-11.0) 08/25/18 07:30 Gran % 70.5 % (50.0-68.0) H 08/25/18 07:30 Lymph % (Auto) 17.2 % (22.0-35.0) L 08/25/18 07:30 Jack % (Auto) 11.2 % (1.0-6.0) H 08/25/18 07:30 Eos % (Auto) 0.6 % (1.5-5.0) L 08/25/18 07:30 Baso % (Auto) 0.5 % (0.0-3.0) 08/25/18 07:30 Gran # 5.78 (1.4-6.5) 08/25/18 07:30 Lymph # (Auto) 1.4 (1.2-3.4) 08/25/18 07:30 Jack # (Auto) 0.9 (0.1-0.6) H 08/25/18 07:30 Eos # (Auto) 0.1 (0.0-0.7) 08/25/18 07:30 Baso # (Auto) 0.04 K/mm3 (0.0-2.0) 08/25/18 07:30 PT 10.6 SECONDS (9.4-12.5) 08/24/18 17:05 INR 0.93 08/24/18 17:05 APTT 28.1 Seconds (25.1-36.5) 08/24/18 17:05 Sodium 140 mmol/L (132-148) 08/25/18 07:30 Potassium 4.3 mmol/L (3.6-5.0) 08/25/18 07:30 Chloride 102 mmol/L (98-107) 08/25/18 07:30 Carbon Dioxide 33 mmol/L (21-33) 08/25/18 07:30 Anion Gap 10 (10-20) 08/25/18 07:30 BUN 22 mg/dL (7-21) H 08/25/18 07:30 Creatinine 0.9 mg/dl (0.7-1.2) 08/25/18 07:30 Est GFR ( Amer) > 60 08/25/18 07:30 Est GFR (Non-Af Amer) > 60 08/25/18 07:30 Random Glucose 120 mg/dL (70-110) H 08/25/18 07:30 Calcium 9.0 mg/dL (8.4-10.5) 08/25/18 07:30 Magnesium 2.4 mg/dL (1.7-2.2) H 08/24/18 17:05 Total Bilirubin 0.5 mg/dL (0.2-1.3) 08/25/18 07:30 AST 29 U/L (14-36) 08/25/18 07:30 ALT 36 U/L (7-56) 08/25/18 07:30 Alkaline Phosphatase 45 U/L (38-126) 08/25/18 07:30 Lactate Dehydrogenase 556 U/L (333-699) 08/24/18 17:05 Total Creatine Kinase 113 U/L (35-230) 08/24/18 17:05 Troponin I < 0.01 ng/mL 08/24/18 17:05 Total Protein 6.7 g/dL (5.8-8.3) 08/25/18 07:30 Albumin 4.0 g/dL (3.0-4.8) 08/25/18 07:30 Globulin 2.7 gm/dL 08/25/18 07:30 Albumin/Globulin Ratio 1.5 (1.1-1.8) 08/25/18 07:30 - Hospital Course Hospital Course: Upon admission, 72 yo F with pmhx of HTN, HLD, CAD s/p 2 stents last in 2009, who presents to the ED for fall sustained at home. She states that she was attempting to get out of her house in the evening and was attempting to close the door behind her. She states that she typically does not have enough room for the door to close and for her to stand next to the door as its closing so she has to take one step down while closing the door. She reports that as she was going down the steps to close the door she turned around quickly and just lost her balance and fell down 6 steps of concrete stairs. She denies any chest pain, palpitations, lightheadedness, dizziness, or LOC before or after the fall. She also denies any tongue biting, bladder or bowel incontinence. She claims that she remembers everything before and after the incident and states that as she fell, she hit her head, her L shoulder and L leg. During hospital course, head CT, CXR, tibia/fibula xray and lumbar spine CT did not reveal any acute abnormalities. Blood work was unremarkable and troponin was negative. Patient's pain was controlled with morphine and she stated her pain improved on following day of hospital admission. She was transitioned to percocet and able to ambulate with PT without significant difficulties. Patient agreed with discharge and all her questions were answered. Discharge Exam - Additional Findings Additional findings: - Constitutional Appears: Well, Non-toxic, No Acute Distress - Head Exam Head Exam: ATRAUMATIC, NORMAL INSPECTION, NORMOCEPHALIC - Eye Exam Eye Exam: EOMI, Normal appearance, PERRL - Respiratory Exam Respiratory Exam: Clear to Auscultation Bilateral, NORMAL BREATHING PATTERN. absent: Accessory Muscle Use, Decreased Breath Sounds, Wheezes, Respiratory Distress - Cardiovascular Exam Cardiovascular Exam: RRR, +S1, +S2. absent: Gallop, Rubs - GI/Abdominal Exam GI & Abdominal Exam: Normal Bowel Sounds, Soft. absent: Distended, Firm, Guarding, Rebound, Tenderness - Extremities Exam Extremities exam: Positive for: normal capillary refill. Negative for: calf tenderness, pedal edema Additional comments: hematoma 2cm on left anterior leg - Back Exam Back exam: muscle spasm, NORMAL INSPECTION, paraspinal tenderness in the thoracic area. absent: CVA tenderness (L), CVA tenderness (R), vertebral tenderness - Neurological Exam Neurological exam: Alert, Oriented x3 - Skin Skin Exam: Dry, Intact (except for where noted above.), Normal Color, Warm Discharge Plan - Discharge Medications Prescriptions: oxyCODONE/Acetaminophen [Percocet 5/325 mg Tab] 1 ea PO Q6 PRN #15 tab PRN Reason: Pain, Moderate (4-7) - Follow Up Plan Condition: GOOD Disposition: HOME/ ROUTINE Instructions: Preventing Falls in the Older Adult, Preventing Falls, Skin Abrasions (DC), Getting Up From a Fall, Flu Vaccine, Contusion in Adults (DC) Additional Instructions: 1) Patient to follow up with PMD within 1 week of discharge. 2) Patient provided with prescription of 15 tablets of Percocet 5/325 mg tablets at the time of discharge. 3) Patient provided with prescription of Outpatient Physical Therapy. Referrals: FAMILY PROVIDER,NO [Primary Care Provider] -
== END 2018-08-25 17:28 | disposition home or self-care (01) ==
LOC: ED 16:09 → ERH 18:40 → 5RSO 21:21
PROVIDERS: ADMIT Internal Medicine; ATTEND Internal Medicine
DX: S30.0XXA Contusion of lower back and pelvis, initial encounter (principal); S80.12XA Contusion of left lower leg, initial encounter; S80.812A Abrasion, left lower leg, initial encounter; I10 Essential (primary) hypertension; E78.5 Hyperlipidemia, unspecified; I25.10 Atherosclerotic heart disease of native coronary artery without angina pectoris; W10.9XXA Fall (on) (from) unspecified stairs and steps, initial encounter; Y92.009 Unspecified place in unspecified non-institutional (private) residence as the place of occurrence of the external cause; Z79.02 Long term (current) use of antithrombotics/antiplatelets; Z87.891 Personal history of nicotine dependence; Z95.5 Presence of coronary angioplasty implant and graft
CPT/HCPCS: 36415; 70450; 71045; 72131; 73590; 80053; 82550; 83615; 83735; 84484; 85025; 85610; 85730; 90471; 90715; 93005; 96374; 96375; 96376; 97116; 97161; 99285; G0378; G8978; G8979; J2270; J2405; J7030

== ENCOUNTER 2018-09-01 18:19 | Inpatient (IN) | payer BC, MEDICARE ==
--- NOTE | 2018-09-01 19:54 | ED PDOC ---
Arrival/HPI - General Chief Complaint: Lower Extremity Problem/Injury Time Seen by Provider: 09/01/18 19:21 Historian: Patient - History of Present Illness Narrative History of Present Illness (Text): 09/01/18 19:39 72 year old female, with past medical history of hypertension, hyperlipidemia, CAD s/p cardiac stents presents to the ED for evaluation of left lower leg discomfort, swelling and possible infection today. Patient was seen in the ED 1 week prior and was admitted to the hospital s/p mechanical fall on steps. Patient had injured her lower leg with bruises and abrasion at the time. Patient had X-ray at the time with negative findings for fracture at the time. Patient states she has since noted redness, pain, warmth and swelling, prompting her to present to the ED for medical evaluation. Patient states she normally uses walker to ambulate. Patient denies any other associated somatic complaints. Patient denies any fevers, chills, headache, dizziness, chest pain, shortness of breath, dyspnea on exertion, cough, abdominal pain, nausea, vomiting, diarrhea, back pain, neck pain, or any other complaints. Time/Duration: 1 week Symptom Onset: Gradual Symptom Course: Unchanged Quality: Aching Activities at Onset: Light Context: Home Past Medical History - Provider Review Nursing Documentation Reviewed: Yes - Infectious Disease Hx of Infectious Diseases: None - Tetanus Immunization Tetanus Immunization: Up to Date - Reproductive Menopause: Yes - Cardiac Hx Pacemaker: No - Pulmonary Hx Respiratory Disorders: No Hx Pneumonia: Yes - Neurological Other/Comment: bells palsy 3x's - HEENT Hx HEENT Disorder: Yes (reading glasses) - Renal Hx Kidney Stones: Yes (over 27 yrs ago) - Endocrine/Metabolic Hx Endocrine Disorders: No - Hematological/Oncological Hx Blood Transfusions: Yes Hx Blood Transfusion Reaction: No - Integumentary Hx Dermatological Disorder: No - Musculoskeletal/Rheumatological Hx Musculoskeletal Disorders: Yes - Gastrointestinal Hx Gastrointestinal Disorders: No Hx Diverticulitis: Yes - Genitourinary/Gynecological Hx Genitourinary Disorders: Yes - Psychiatric Hx Emotional Abuse: No Hx Physical Abuse: No Hx Substance Use: No - Surgical History Hx Cardiac Catheterization: Yes (STENT X2 2009) Hx Coronary Stent: Yes (x2 2009) Hx Hysterectomy: Yes (ca cervix about 10 yrs ago) Hx Orthopedic Surgery: Yes (R HIP REPLACEMENT 2003) Other/Comment: abd hernia sx, colon polyp removed, bilateral bunyons removed at 12 yrs old, right foot sx for bunyon and callous removal about 2 yrs ago, blader cyst and repair - Anesthesia Hx Anesthesia Reactions: No Hx Malignant Hyperthermia: No - Suicidal Assessment Feels Threatened In Home Enviroment: No Family/Social History - Physician Review Nursing Documentation Reviewed: Yes Family/Social History: Unknown Family HX Smoking Status: Former Smoker Hx Alcohol Use: Yes (social) Hx Substance Use: No Hx Substance Use Treatment: No Allergies/Home Meds Allergies/Adverse Reactions: Allergies No Known Allergies Allergy (Verified 08/24/18 16:25) Home Medications: Home Meds Medication Instructions Recorded Confirmed Alendronate Sodium 70 mg PO MON 03/06/13 08/24/18 Aspirin [Aspir 81] 81 mg PO DAILY 03/06/13 08/24/18 Clopidogrel [Plavix] 75 mg PO DAILY 11/18/17 08/24/18 Losartan/Hydrochlorothiazide 1 each PO DAILY 11/18/17 08/24/18 [Losartan-Hctz 100-12.5 mg Tab] Simvastatin [Zocor] 20 mg PO DAILY 11/18/17 08/24/18 Cholecalciferol (Vitamin D3) 1,000 unit PO DAILY 06/06/18 08/24/18 [Vitamin D3] Multivitamin [Multivitamins] 1 each PO DAILY 06/06/18 08/24/18 Ranitidine HCl [Acid Buffing And Sueding Machine Operator] 150 mg PO BID 06/06/18 08/24/18 Topiramate [Topamax] 50 mg PO HS 06/06/18 08/24/18 Review of Systems - Physician Review All systems were reviewed & negative as marked: Yes - Review of Systems Constitutional: absent: Fevers Respiratory: absent: SOB, Cough Cardiovascular: absent: Chest Pain Gastrointestinal: absent: Abdominal Pain, Diarrhea, Nausea, Vomiting Genitourinary Female: absent: Dysuria, Urine Output Changes Musculoskeletal: Other (left lower leg discomfort and swelling) Skin: absent: Rash Neurological: absent: Headache, Dizziness Physical Exam Vital Signs Reviewed: Yes Vital Signs Temp Pulse Resp BP Pulse Ox 09/01/18 18:52 98.6 F 64 18 116/56 L 95 Temperature: Afebrile Blood Pressure: Normal Pulse: Regular Respiratory Rate: Normal Appearance: Positive for: Well-Appearing, Non-Toxic, Comfortable Pain Distress: None Mental Status: Positive for: Alert and Oriented X 3 - Systems Exam Head: Present: Atraumatic, Normocephalic Pupils: Present: PERRL Extroacular Muscles: Present: EOMI Conjunctiva: Present: Normal Neck: Present: Normal Range of Motion Respiratory/Chest: Present: Clear to Auscultation, Good Air Exchange. No: Respiratory Distress, Accessory Muscle Use Cardiovascular: Present: Regular Rate and Rhythm, Normal S1, S2. No: Murmurs Abdomen: No: Tenderness, Distention, Peritoneal Signs Upper Extremity: Present: Normal Inspection. No: Cyanosis, Edema Lower Extremity: Present: Normal ROM, Neurovascularly Intact, Other (ecchymotic bruising and swelling to left lower leg with scabbed lesions surrounding confluent erythema to the leg, palpable warmth and tenderness. ). No: Edema Neurological: Present: GCS=15, CN II-XII Intact, Speech Normal Skin: Present: Warm, Dry, Normal Color. No: Rashes Psychiatric: Present: Alert, Oriented x 3, Normal Insight, Normal Concentration Medical Decision Making ED Course and Treatment: 09/01/18 19:55 Impression: 72 year old female presents to the ED complaining of left leg swelling and discomfort. Plan: --Labs -- Blood Culture -- US of LE -- Reassess and disposition Prior Visits: Notes and results from previous visits were reviewed. Progress Notes: 09/01/18 21:15 US Duplex Lower Extremities negative for DVT. 09/01/18 21:[address] Margarito Sheehna, who is aware and agrees with plan. Accepts pt in to hospitalist service. Pt will go to [facility] observation for cellulitis. vice president of product marketing notified. - Lab Interpretations I have reviewed the lab results: Yes - RAD Interpretation Radiology Orders: 09/01/18 19:39 DUPLEX LOWER EXTRM VEIN LEFT [US] Stat - Scribe Statement The provider has reviewed the documentation as recorded by the Scribe Matti Kay. All medical record entries made by the Scribe were at my direction and personally dictated by me. I have reviewed the chart and agree that the record accurately reflects my personal performance of the history, physical exam, medical decision making, and the department course for this patient. I have also personally directed, reviewed, and agree with the discharge instructions and disposition. Disposition/Present on Arrival - Present on Arrival Any Indicators Present on Arrival: No History of DVT/PE: No History of Uncontrolled Diabetes: No Urinary Catheter: No History of Decub. Ulcer: No History Surgical Site Infection Following: None - Disposition Have Diagnosis and Disposition been Completed?: Yes Diagnosis: Cellulitis of leg Disposition: HOSPITALIZED Disposition Time: 21:47 Condition: STABLE Discharge Instructions (ExitCare): Cellulitis (ED) Referrals: Scooter Rogers MD [Primary Care Provider] - Follow up with primary Forms: [employer] (Guinean)
[2018-09-01 20:06] LABS: HEMOGLOBIN 10.5 g/dL (12.0-16.0); MEAN CELL VOLUME 88.3 fl (80.0-105.0); MEAN CORPUSCULAR HEMOGLOBIN 30.1 pg (25.0-35.0); MEAN CORPUSCULAR HGB CONC 34.1 g/dl (31.0-37.0); MEAN PLATELET VOLUME 8.6 fl (7.0-11.0); RBC 3.49 10^6/uL (3.5-6.1); RED CELL DISTRIBUTION WIDTH 13.2 % (11.5-14.5); WHITE BLOOD COUNT 9.1 10^3/uL (4.5-11.0)
[2018-09-01 20:21] LABS: ALB/GLOB RATIO 1.4 (1.1-1.8); ALBUMIN 4.2 g/dL (3.0-4.8); ALT/SGPT 31 U/L (7-56); AST/SGOT 31 U/L (14-36); BLOOD UREA NITROGEN 18 mg/dL (7-21); GFR NON-AFRICAN AMERICAN > 60
[2018-09-01] MEDS ORDERED: cefTRIAXone 1 gm 1 GM/100 ML BAG IV STA (20:27)
[2018-09-01] MEDS ORDERED: Vancomycin 1 gm/D5W 200 ml 200 ML IV STA (20:27)
[2018-09-01] MEDS ORDERED: Vancomycin 1gm in NS 250ml 1 GM/250 ML BAG IVPB STA (20:31)
[2018-09-01] MEDS ORDERED: Oxycodone/Acetaminophen 5/325 mg Tab PO STA (21:39)
[2018-09-01] MEDS ORDERED: Potassium Chloride 20 mEq ER Tab PO ONE (22:10)
[2018-09-01] MEDS ORDERED: Piperacillin/Tazobact 3.375 gm 100 ML IVPB SCH (22:31)
[2018-09-02 06:07] LABS: BASO # 0.05 K/mm3 (0.0-2.0); BASO % 0.7 % (0.0-3.0); EOS # 0.2 (0.0-0.7); EOS % 2.9 % (1.5-5.0); GRAN # 4.93 (1.4-6.5); GRAN % 64.4 % (50.0-68.0); HEMOGLOBIN 10.4 g/dL (12.0-16.0); LYMPH # 1.6 (1.2-3.4); LYMPH % 20.9 % (22.0-35.0); MEAN CELL VOLUME 88.3 fl (80.0-105.0); MEAN CORPUSCULAR HEMOGLOBIN 29.7 pg (25.0-35.0); MEAN CORPUSCULAR HGB CONC 33.7 g/dl (31.0-37.0); MEAN PLATELET VOLUME 8.5 fl (7.0-11.0); MONO # 0.9 (0.1-0.6); MONO % 11.1 % (1.0-6.0); RBC 3.5 10^6/uL (3.5-6.1); RED CELL DISTRIBUTION WIDTH 13.2 % (11.5-14.5); WHITE BLOOD COUNT 7.7 10^3/uL (4.5-11.0)
[2018-09-02 06:17] LABS: ALB/GLOB RATIO 1.3 (1.1-1.8); ALBUMIN 3.9 g/dL (3.0-4.8); ALT/SGPT 30 U/L (7-56); AST/SGOT 25 U/L (14-36); BLOOD UREA NITROGEN 17 mg/dL (7-21); CALCIUM 8.8 mg/dL (8.4-10.5); GFR NON-AFRICAN AMERICAN > 60
--- NOTE | 2018-09-02 06:20 | CP.PCM.HP ---
History of Present Illness - History of Present Illness History of Present Illness: Paul Mack DO, PGY1. H&P for Dr gabrielist service C.C: left lower leg pain/swelling 72 yo F with pmhx of HTN, HLD, CAD s/p 2 stents last in 2009, who presents to the ED for worsening left lower leg pain and swelling. Pain is 9/10, constant, burning/pressure in nature, aggravated by ambulation/sitting for long period of time, alleviated by leg elevation, extends from the knee to the foot. Patient was just discharged from [facility] with one day of hospital admission s/p mechanical fall. Imaging studies, lab were normal and patient discharged on percocet prn and bacitracin for her lower limb superficial wounds. Patient reports progressive symptoms of pressure and pain in the left leg. She denied associated fever, chills, wound discharge, muscle weakness, loss of sensation. Patient was not able to see her PMD Dr Rogers as his office was closed for the holiday. She also denied CP, SOB, palpitations, headache, dizziness, changes in bowel movement, urinary symptoms. She has been using walker with difficulty ambulating due to pain and pressure. 12 points ROS reviewed with pertinent positives as above Pmhx:HTN, HLD, CAD s/p 2 stents last in 2009, Pshx: L hip replacement 10 years ago, hysterectomy, 15 years ago Meds: as per EMR All: NKDA Social: Quit smoking 10+ years ago, Social EtOH use, denies illicit drug use Fam: Mom: DM, HTN, CVA PMD: Dr. Rogers Present on Admission - Present on Admission Any Indicators Present on Admission: No Past Patient History - Infectious Disease Hx of Infectious Diseases: None - Tetanus Immunizations Tetanus Immunization: Up to Date - Past Social History Smoking Status: Former Smoker - CARDIAC Hx Pacemaker: No - PULMONARY Hx Respiratory Disorders: No Hx Pneumonia: Yes - NEUROLOGICAL Other/Comment: bells palsy 3x's - HEENT Hx HEENT Problems: Yes (reading glasses) - RENAL Hx Kidney Stones: Yes (over 27 yrs ago) - ENDOCRINE/METABOLIC Hx Endocrine Disorders: No - HEMATOLOGICAL/ONCOLOGICAL Hx Blood Transfusions: Yes Hx Blood Transfusion Reaction: No - INTEGUMENTARY Hx Dermatological Problems: No - MUSCULOSKELETAL/RHEUMATOLOGICAL Hx Musculoskeletal Disorders: Yes - GASTROINTESTINAL Hx Gastrointestinal Disorders: No Hx Diverticulitis: Yes - GENITOURINARY/GYNECOLOGICAL Hx Genitourinary Disorders: Yes - PSYCHIATRIC Hx Emotional Abuse: No Hx Physical Abuse: No Hx Substance Use: No - SURGICAL HISTORY Hx Cardiac Catheterization: Yes (STENT X2 2009) Hx Coronary Stent: Yes (x2 2009) Hx Hysterectomy: Yes (ca cervix about 10 yrs ago) Hx Orthopedic Surgery: Yes (R HIP REPLACEMENT 2003) Other/Comment: abd hernia sx, colon polyp removed, bilateral bunyons removed at 12 yrs old, right foot sx for bunyon and callous removal about 2 yrs ago, blader cyst and repair - ANESTHESIA Hx Anesthesia Reactions: No Hx Malignant Hyperthermia: No Meds Allergies/Adverse Reactions: Allergies Allergy/AdvReac Type Severity Reaction Status Date / Time No Known Allergies Allergy Verified 08/24/18 16:25 Physical Exam - Constitutional Appears: Well, Non-toxic, No Acute Distress - Head Exam Head Exam: ATRAUMATIC, NORMAL INSPECTION, NORMOCEPHALIC - Eye Exam Eye Exam: EOMI, Normal appearance, PERRL Pupil Exam: NORMAL ACCOMODATION, PERRL - ENT Exam ENT Exam: Mucous Membranes Moist, Normal Exam - Neck Exam Neck exam: Positive for: Normal Inspection - Respiratory Exam Respiratory Exam: Clear to Auscultation Bilateral, NORMAL BREATHING PATTERN - Cardiovascular Exam Cardiovascular Exam: REGULAR RHYTHM, +S1, +S2. absent: Gallop, Rubs - GI/Abdominal Exam GI & Abdominal Exam: Normal Bowel Sounds, Soft. absent: Tenderness - Extremities Exam Extremities exam: Positive for: pedal pulses present (left lower leg, foot) Additional comments: ecchymotic bruising and swelling to left lower leg with scabbed lesions surrounding confluent erythema to the leg, palpable warmth and tenderness - Back Exam Back exam: NORMAL INSPECTION - Neurological Exam Neurological exam: Alert, CN II-XII Intact, Oriented x3, Reflexes Normal - Psychiatric Exam Psychiatric exam: Normal Affect, Normal Mood - Skin Skin Exam: Dry, Normal Color, Rash, Warm Results - Vital Signs Recent Vital Signs: Last Vital Signs Temp 98.5 F 09/01/18 23:30 Pulse 71 09/01/18 23:30 Resp 18 09/01/18 23:30 BP 110/68 09/01/18 23:30 Pulse Ox 96 09/01/18 23:30 - Labs Result Diagrams: 09/02/18 05:40 09/02/18 05:40 Labs: Laboratory Results - last 24 hr 09/01/18 09/01/18 09/02/18 19:55 19:55 05:40 WBC 9.1 7.7 RBC 3.49 L 3.50 Hgb 10.5 L 10.4 L Hct 30.8 L 30.9 L MCV 88.3 88.3 MCH 30.1 29.7 MCHC 34.1 33.7 RDW 13.2 13.2 Plt Count 261 258 MPV 8.6 8.5 Gran % 64.4 Lymph % (Auto) 20.9 L Lander % (Auto) 11.1 H Eos % (Auto) 2.9 Baso % (Auto) 0.7 Gran # 4.93 Lymph # (Auto) 1.6 Lander # (Auto) 0.9 H Eos # (Auto) 0.2 Baso # (Auto) 0.05 Sodium 138 Potassium 3.5 L Chloride 101 Carbon Dioxide 29 Anion Gap 12 BUN 18 Creatinine 0.8 Est GFR ( Amer) > 60 Est GFR (Non-Af Amer) > 60 Random Glucose 122 H Calcium 9.0 Phosphorus Magnesium Total Bilirubin 0.9 AST 31 ALT 31 Alkaline Phosphatase 73 Total Creatine Kinase Total Protein 7.2 Albumin 4.2 Globulin 3.0 Albumin/Globulin Ratio 1.4 09/02/18 05:40 WBC RBC Hgb Hct MCV MCH MCHC RDW Plt Count MPV Gran % Lymph % (Auto) Lander % (Auto) Eos % (Auto) Baso % (Auto) Gran # Lymph # (Auto) Lander # (Auto) Eos # (Auto) Baso # (Auto) Sodium 138 Potassium 3.8 Chloride 102 Carbon Dioxide 31 Anion Gap 9 L BUN 17 Creatinine 0.8 Est GFR ( Amer) > 60 Est GFR (Non-Af Amer) > 60 Random Glucose 115 H Calcium 8.8 Phosphorus 3.5 Magnesium 2.3 H Total Bilirubin 0.6 AST 25 ALT 30 Alkaline Phosphatase 62 Total Creatine Kinase 30 L Total Protein 6.9 Albumin 3.9 Globulin 3.0 Albumin/Globulin Ratio 1.3 Assessment & Plan - Assessment and Plan (Free Text) Assessment: 72 yo F with pmhx of HTN, HLD, CAD s/p 2 stents last in 2009, who presents to the ED for worsening left lower leg pain/swelling s/p recent hospital discharge. Plan: Left lower leg pain/swelling: -Likely cellulitis, no compartment syndrome sx, peripheral pulses palpable -patient afebrile , no leukocytosis -US LLE: negative for DVT -continue vanco, zosyn -f/u CPK, ESR, CRP, lactate -f/u blood cx -leg elevation -MRI LLE ordered -ID consulted, DR Fernando Hx of HTN: - Cont home Losartan, hctz Anemia: -H/H stable. continue monitoring -f/u iron studies CAD s/p 2 stents: - Cont Asa, Plavix Prophylaxis: -DVT ppx:SCD -GI ppx: pepcid Heart healthy diet Case reviewed and plan discussed with attending Dr Margarito Mack, DO, PGY1
[2018-09-02] MEDS: Oxycodone/Acetaminophen 5/325 mg Tab PO PRN ×3 (06:25→21:36)
[2018-09-02 07:40] LABS: IRON 39 ug/dL (45-180)
[2018-09-02 07:50] LABS: % IRON SATURATION 14 % (20-55); TOTAL IRON BINDING CAPACITY 286 ug/dL (265-497)
--- NOTE | 2018-09-02 10:23 | CP.PCM.CON ---
<Kvng You - Last Filed: 09/02/18 13:21> History of Present Illness - History of Present Illness History of Present Illness: ID Consult note 72 year old female with past medical history of HTN, HLD, and CAD s/p sent placement presented to the hospital after 1 week of left lower extremity pain. 1 week ago patient fell down her porch stairs while leaving her house. She came to the ED and was discharged after negative imaging at that time. Patient developed pain, swelling, and warmth in her left leg, which also demonstrated abrasions from her recent fall. Patient took percocet for pain. Patient denies chest pain, shortness of breath, nausea, vomiting, diarrhea, fever, chills, dysuria. Medical Hx:HTN, HLD, CAD s/p stent placement Surgical Hx: Left hip replacement, hysterectomy Meds: reviewed, as per MAR Allergies: NKDA Social Hx: Former smoker, Social alcohol use, denies illicit drug use Family Hx: DM, HTN, CVA Review of Systems - Review of Systems Review of Systems: 12 point ROS as per HPI, otherwise negative Past Patient History - Infectious Disease Hx of Infectious Diseases: None - Tetanus Immunizations Tetanus Immunization: Up to Date - Past Social History Smoking Status: Former Smoker - CARDIAC Hx Pacemaker: No - PULMONARY Hx Respiratory Disorders: No Hx Pneumonia: Yes - NEUROLOGICAL Other/Comment: bells palsy 3x's - HEENT Hx HEENT Problems: Yes (reading glasses) - RENAL Hx Kidney Stones: Yes (over 27 yrs ago) - ENDOCRINE/METABOLIC Hx Endocrine Disorders: No - HEMATOLOGICAL/ONCOLOGICAL Hx Blood Transfusions: Yes Hx Blood Transfusion Reaction: No - INTEGUMENTARY Hx Dermatological Problems: No - MUSCULOSKELETAL/RHEUMATOLOGICAL Hx Musculoskeletal Disorders: Yes - GASTROINTESTINAL Hx Gastrointestinal Disorders: No Hx Diverticulitis: Yes - GENITOURINARY/GYNECOLOGICAL Hx Genitourinary Disorders: Yes - PSYCHIATRIC Hx Emotional Abuse: No Hx Physical Abuse: No Hx Substance Use: No - SURGICAL HISTORY Hx Cardiac Catheterization: Yes (STENT X2 2009) Hx Coronary Stent: Yes (x2 2009) Hx Hysterectomy: Yes (ca cervix about 10 yrs ago) Hx Orthopedic Surgery: Yes (R HIP REPLACEMENT 2003) Other/Comment: abd hernia sx, colon polyp removed, bilateral bunyons removed at 12 yrs old, right foot sx for bunyon and callous removal about 2 yrs ago, blader cyst and repair - ANESTHESIA Hx Anesthesia Reactions: No Hx Malignant Hyperthermia: No Meds Allergies/Adverse Reactions: Allergies Allergy/AdvReac Type Severity Reaction Status Date / Time No Known Allergies Allergy Verified 08/24/18 16:25 - Medications Medications: Current Medications Alendronate Sodium (Fosamax) 70 mg PO MON [facility] Aspirin (Ecotrin) 81 mg PO DAILY [facility] Atorvastatin Calcium (Lipitor) 10 mg PO DIN [facility] Cholecalciferol (Vitamin D) 1,000 intlu PO DAILY [facility] Clopidogrel Bisulfate (Plavix) 75 mg PO DAILY [facility] Famotidine (Pepcid) 20 mg PO BID [facility] Hydrochlorothiazide (Microzide) 12.5 mg PO DAILY [facility] Vancomycin HCl (Vancomycin 1gm) 1 gm in 250 mls @ 167 mls/hr IVPB Q12 [facility]; Protocol Losartan Potassium (Cozaar) 100 mg PO DAILY [facility] Multivitamins (Thera Tab) 1 tab PO DAILY [facility] Oxycodone/Acetaminophen (Percocet 5/325 Mg Tab) 1 tab PO Q6H PRN PRN Reason: Pain, severe (8-10) Stop: 09/04/18 22:37 Last Admin: 09/02/18 06:25 Dose: 1 tab Primidone (Mysoline) 50 mg PO HS [facility] Last Admin: 09/01/18 23:41 Dose: 50 mg Topiramate (Topamax) 50 mg PO HS [facility]; Protocol Physical Exam - Constitutional Appears: Non-toxic, No Acute Distress - Head Exam Head Exam: ATRAUMATIC, NORMAL INSPECTION, NORMOCEPHALIC - Eye Exam Eye Exam: EOMI, Normal appearance - ENT Exam ENT Exam: Mucous Membranes Moist - Respiratory Exam Respiratory Exam: Clear to Auscultation Bilateral, NORMAL BREATHING PATTERN - Cardiovascular Exam Cardiovascular Exam: RRR, +S1, +S2 - GI/Abdominal Exam GI & Abdominal Exam: Normal Bowel Sounds, Soft. absent: Tenderness - Extremities Exam Extremities exam: Positive for: pedal edema (+1 on left) Additional comments: Left anterior ram shows abrasions with eschar, erythema and tenderness present. - Neurological Exam Neurological exam: Alert, CN II-XII Intact, Oriented x3 - Skin Skin Exam: Dry, Intact, Warm Results - Vital Signs Recent Vital Signs: Last Vital Signs Temp 97.7 F 09/02/18 06:00 Pulse 59 L 12/28/18 06:00 Resp 20 09/02/18 06:00 BP 113/54 L 09/02/18 06:00 Pulse Ox 98 09/02/18 06:00 - Labs Result Diagrams: 09/02/18 05:40 09/02/18 05:40 Labs: Laboratory Results - last 24 hr 09/01/18 09/01/18 09/02/18 19:55 19:55 05:40 WBC 9.1 7.7 RBC 3.49 L 3.50 Hgb 10.5 L 10.4 L Hct 30.8 L 30.9 L MCV 88.3 88.3 MCH 30.1 29.7 MCHC 34.1 33.7 RDW 13.2 13.2 Plt Count 261 258 MPV 8.6 8.5 Gran % 64.4 Lymph % (Auto) 20.9 L [place] % (Auto) 11.1 H Eos % (Auto) 2.9 Baso % (Auto) 0.7 Gran # 4.93 Lymph # (Auto) 1.6 [place] # (Auto) 0.9 H Eos # (Auto) 0.2 Baso # (Auto) 0.05 ESR 37 H Retic Count Sodium 138 Potassium 3.5 L Chloride 101 Carbon Dioxide 29 Anion Gap 12 BUN 18 Creatinine 0.8 Est GFR ( Amer) > 60 Est GFR (Non-Af Amer) > 60 Random Glucose 122 H Lactic Acid Calcium 9.0 Phosphorus Magnesium Iron TIBC % Saturation Total Bilirubin 0.9 AST 31 ALT 31 Alkaline Phosphatase 73 Total Creatine Kinase Total Protein 7.2 Albumin 4.2 Globulin 3.0 Albumin/Globulin Ratio 1.4 09/02/18 09/02/18 09/02/18 05:40 06:30 06:30 WBC RBC Hgb Hct MCV MCH MCHC RDW Plt Count MPV Gran % Lymph % (Auto) [place] % (Auto) Eos % (Auto) Baso % (Auto) Gran # Lymph # (Auto) [place] # (Auto) Eos # (Auto) Baso # (Auto) ESR Retic Count 3.15 H Sodium 138 Potassium 3.8 Chloride 102 Carbon Dioxide 31 Anion Gap 9 L BUN 17 Creatinine 0.8 Est GFR ( Amer) > 60 Est GFR (Non-Af Amer) > 60 Random Glucose 115 H Lactic Acid Calcium 8.8 Phosphorus 3.5 Magnesium 2.3 H Iron 39 L TIBC 286 % Saturation 14 L Total Bilirubin 0.6 AST 25 ALT 30 Alkaline Phosphatase 62 Total Creatine Kinase 30 L Total Protein 6.9 Albumin 3.9 Globulin 3.0 Albumin/Globulin Ratio 1.3 09/02/18 08:00 WBC RBC Hgb Hct MCV MCH MCHC RDW Plt Count MPV Gran % Lymph % (Auto) [place] % (Auto) Eos % (Auto) Baso % (Auto) Gran # Lymph # (Auto) [place] # (Auto) Eos # (Auto) Baso # (Auto) ESR Retic Count Sodium Potassium Chloride Carbon Dioxide Anion Gap BUN Creatinine Est GFR ( Amer) Est GFR (Non-Af Amer) Random Glucose Lactic Acid 1.4 Calcium Phosphorus Magnesium Iron TIBC % Saturation Total Bilirubin AST ALT Alkaline Phosphatase Total Creatine Kinase Total Protein Albumin Globulin Albumin/Globulin Ratio Assessment & Plan - Assessment and Plan (Free Text) Plan: Left lower extremity cellulitis S/p fall Hx of HTN Hx of HLD Hx of CAD Plan: Patient received dose of Vancomycin and Zosyn ED. Will continue Vancomycin only at this time. Patient will have MRI performed to rule out osteomyelitis. Patient will also receive an ultrasound of lower left extremity to rule out hematoma or abscess. Blood cultures and procalcitonin are pending. Continue current medical regimen and will monitor closely. Kenyatta, PGY-3 <Markie Butterfield S - Last Filed: 09/02/18 14:50> Meds - Medications Medications: Current Medications Alendronate Sodium (Fosamax) 70 mg PO MON [facility] Aspirin (Ecotrin) 81 mg PO DAILY [facility] Last Admin: 09/02/18 11:04 Dose: 81 mg Atorvastatin Calcium (Lipitor) 10 mg PO DIN [facility] Cholecalciferol (Vitamin D) 1,000 intlu PO DAILY [facility] Last Admin: 09/02/18 11:11 Dose: 1,000 intlu Clopidogrel Bisulfate (Plavix) 75 mg PO DAILY [facility] Last Admin: 09/02/18 11:06 Dose: 75 mg Famotidine (Pepcid) 20 mg PO BID [facility] Last Admin: 09/02/18 11:06 Dose: 20 mg Furosemide (Lasix) 20 mg IVP DAILY [facility] Hydrochlorothiazide (Microzide) 12.5 mg PO DAILY [facility] Last Admin: 09/02/18 11:06 Dose: 12.5 mg Vancomycin HCl (Vancomycin 1gm) 1 gm in 250 mls @ 167 mls/hr IVPB Q12 [facility]; Protocol Last Admin: 09/02/18 11:08 Dose: 167 mls/hr Losartan Potassium (Cozaar) 100 mg PO DAILY [facility] Last Admin: 09/02/18 11:03 Dose: 100 mg Multivitamins (Thera Tab) 1 tab PO DAILY [facility] Last Admin: 09/02/18 11:03 Dose: 1 tab Oxycodone/Acetaminophen (Percocet 5/325 Mg Tab) 1 tab PO Q6H PRN PRN Reason: Pain, severe (8-10) Stop: 09/04/18 22:37 Last Admin: 09/02/18 11:04 Dose: 1 tab Primidone (Mysoline) 50 mg PO HS [facility] Last Admin: 09/01/18 23:41 Dose: 50 mg Topiramate (Topamax) 50 mg PO HS [facility]; Protocol Results - Vital Signs Recent Vital Signs: Last Vital Signs Temp 97.7 F 09/02/18 06:00 Pulse 59 L 09/02/18 06:00 Resp 20 09/02/18 06:00 BP 113/54 L 09/02/18 06:00 Pulse Ox 98 09/02/18 06:00 - Labs Result Diagrams: 09/02/18 05:40 09/02/18 05:40 Labs: Laboratory Results - last 24 hr 09/01/18 09/01/18 09/02/18 19:55 19:55 05:40 WBC 9.1 7.7 RBC 3.49 L 3.50 Hgb 10.5 L 10.4 L Hct 30.8 L 30.9 L MCV 88.3 88.3 MCH 30.1 29.7 MCHC 34.1 33.7 RDW 13.2 13.2 Plt Count 261 258 MPV 8.6 8.5 Gran % 64.4 Lymph % (Auto) 20.9 L [place] % (Auto) 11.1 H Eos % (Auto) 2.9 Baso % (Auto) 0.7 Gran # 4.93 Lymph # (Auto) 1.6 [place] # (Auto) 0.9 H Eos # (Auto) 0.2 Baso # (Auto) 0.05 ESR 37 H Retic Count Sodium 138 Potassium 3.5 L Chloride 101 Carbon Dioxide 29 Anion Gap 12 BUN 18 Creatinine 0.8 Est GFR ( Amer) > 60 Est GFR (Non-Af Amer) > 60 Random Glucose 122 H Lactic Acid Calcium 9.0 Phosphorus Magnesium Iron TIBC % Saturation Transferrin Ferritin Total Bilirubin 0.9 AST 31 ALT 31 Alkaline Phosphatase 73 Total Creatine Kinase C-Reactive Protein Total Protein 7.2 Albumin 4.2 Globulin 3.0 Albumin/Globulin Ratio 1.4 Vitamin B12 Folate Procalcitonin 09/02/18 09/02/18 09/02/18 05:40 06:30 06:30 WBC RBC Hgb Hct MCV MCH MCHC RDW Plt Count MPV Gran % Lymph % (Auto) [place] % (Auto) Eos % (Auto) Baso % (Auto) Gran # Lymph # (Auto) [place] # (Auto) Eos # (Auto) Baso # (Auto) ESR Retic Count 3.15 H Sodium 138 Potassium 3.8 Chloride 102 Carbon Dioxide 31 Anion Gap 9 L BUN 17 Creatinine 0.8 Est GFR ( Amer) > 60 Est GFR (Non-Af Amer) > 60 Random Glucose 115 H Lactic Acid Calcium 8.8 Phosphorus 3.5 Magnesium 2.3 H Iron 39 L TIBC 286 % Saturation 14 L Transferrin Ferritin 115.0 Total Bilirubin 0.6 AST 25 ALT 30 Alkaline Phosphatase 62 Total Creatine Kinase 30 L C-Reactive Protein 40.60 H Total Protein 6.9 Albumin 3.9 Globulin 3.0 Albumin/Globulin Ratio 1.3 Vitamin B12 269 Folate Procalcitonin 09/02/18 09/02/18 09/02/18 07:10 07:10 07:10 WBC RBC Hgb Hct MCV MCH MCHC RDW Plt Count MPV Gran % Lymph % (Auto) [place] % (Auto) Eos % (Auto) Baso % (Auto) Gran # Lymph # (Auto) [place] # (Auto) Eos # (Auto) Baso # (Auto) ESR Retic Count Sodium Potassium Chloride Carbon Dioxide Anion Gap BUN Creatinine Est GFR ( Amer) Est GFR (Non-Af Amer) Random Glucose Lactic Acid Calcium Phosphorus Magnesium Iron TIBC % Saturation Transferrin 220.17 Ferritin Total Bilirubin AST ALT Alkaline Phosphatase Total Creatine Kinase C-Reactive Protein Total Protein Albumin Globulin Albumin/Globulin Ratio Vitamin B12 Folate 8.5 Procalcitonin 0.05 L 09/02/18 08:00 WBC RBC Hgb Hct MCV MCH MCHC RDW Plt Count MPV Gran % Lymph % (Auto) [place] % (Auto) Eos % (Auto) Baso % (Auto) Gran # Lymph # (Auto) [place] # (Auto) Eos # (Auto) Baso # (Auto) ESR Retic Count Sodium Potassium Chloride Carbon Dioxide Anion Gap BUN Creatinine Est GFR ( Amer) Est GFR (Non-Af Amer) Random Glucose Lactic Acid 1.4 Calcium Phosphorus Magnesium Iron TIBC % Saturation Transferrin Ferritin Total Bilirubin AST ALT Alkaline Phosphatase Total Creatine Kinase C-Reactive Protein Total Protein Albumin Globulin Albumin/Globulin Ratio Vitamin B12 Folate Procalcitonin Assessment & Plan - Assessment and Plan (Free Text) Plan: Infectious diseases Attending Physician Attestation Patient seen and examined, discussed with medical technicians. I have reviewed the patient's history of present illness, past medical, social, personal and family histories, pertinent physical exam findings, course so far in this hospital admission, pertinent laboratory and imaging results. I agree with the above fi ndings, assessment and plan. In addition, continue Vancomycin for left leg cellulitis associated with trauma. Need to rule out hematoma or abscess - follow up ultrasound of leg and MRI of leg. Follow up blood cx.
[2018-09-02 10:32] VITALS: BMI 26.6
[2018-09-02] MEDS: Multivitamin Therapeutic Tab PO SCH (11:03)
[2018-09-02] MEDS: Vancomycin 1gm in NS 250ml 1 GM/250 ML BAG IVPB SCH ×2 (11:08→21:36)
[2018-09-02] MEDS: Cholecalciferol 1,000 INTLU TAB PO SCH (11:11)
--- NOTE | 2018-09-02 16:24 | US ---
Date of service: 09/02/2018 PROCEDURE: Left lower extremity nonvascular ultrasound HISTORY: Rule out abscess/hematoma in left lower extremity COMPARISON: None TECHNIQUE: Standard protocol for this study/examination. FINDINGS: Complex primarily fluid filled collection corresponding findings on physical examination measures 1.6 x 9 cm. In the clinical setting of trauma/fall this likely represents hematoma. This is an avascular process. IMPRESSION: Complex fluid collection/debris laden process. Given posttraumatic status and history this is more likely hematoma than abscess/ inflammatory process
--- NOTE | 2018-09-02 22:54 | US ---
PROCEDURE: Left lower extremity venous US HISTORY: Leg pain and swelling. Evaluate for DVT. PHYSICIAN(S): Sameer Carolina MD. TECHNIQUE: Duplex sonography and color-flow Doppler with graded compression were used to evaluate the deep venous system of the left lower extremity. FINDINGS: The visualized deep venous system of the left lower extremity is sonographically normal and compressible. Normal wave forms and augmentation are seen. There is no sonographic evidence for deep venous thrombosis in the visualized segments of the left lower extremity. IMPRESSION: 1. No sonographic evidence for deep venous thrombosis in the visualized segments of the left lower extremity.
[2018-09-03 08:16] LABS: BASO # 0.01 K/mm3 (0.0-2.0); BASO % 0.1 % (0.0-3.0); EOS % 0.4 % (1.5-5.0); GRAN # 10.48 (1.4-6.5); GRAN % 91.9 % (50.0-68.0); HEMOGLOBIN 10.4 g/dL (12.0-16.0); LYMPH # 0.2 (1.2-3.4); LYMPH % 1.9 % (22.0-35.0); MEAN CELL VOLUME 88.3 fl (80.0-105.0); MEAN CORPUSCULAR HEMOGLOBIN 29.1 pg (25.0-35.0); MEAN CORPUSCULAR HGB CONC 32.9 g/dl (31.0-37.0); MEAN PLATELET VOLUME 8.4 fl (7.0-11.0); MONO # 0.7 (0.1-0.6); MONO % 5.7 % (1.0-6.0); PLATELET COUNT 266 10^3/uL (120.0-450.0); RBC 3.58 10^6/uL (3.5-6.1); RED CELL DISTRIBUTION WIDTH 12.9 % (11.5-14.5); WHITE BLOOD COUNT 11.4 10^3/uL (4.5-11.0)
[2018-09-03 08:35] LABS: ALB/GLOB RATIO 1.3 (1.1-1.8); ALBUMIN 4.1 g/dL (3.0-4.8); ALT/SGPT 36 U/L (7-56); AST/SGOT 31 U/L (14-36); BLOOD UREA NITROGEN 18 mg/dL (7-21); CALCIUM 8.7 mg/dL (8.4-10.5); GFR NON-AFRICAN AMERICAN > 60
[2018-09-03 10:02] LABS: HYPOCHROMIA 1+; LYMPHOCYTE 2 % (22.0-35.0); MONOCYTE 7 % (1.0-6.0); NEUTROPHIL 91 % (50.0-70.0); PLATELET ESTIMATE NORMAL (NORMAL)
[2018-09-03 10:03] LABS: ROULEAU 2+; TOXIC GRANULATION 1+
[2018-09-03] MEDS: Vancomycin 1gm in NS 250ml 1 GM/250 ML BAG IVPB SCH ×2 (10:42→22:19)
[2018-09-03] MEDS: Cholecalciferol 1,000 INTLU TAB PO SCH (10:43)
[2018-09-03] MEDS: Multivitamin Therapeutic Tab PO SCH (10:43)
--- NOTE | 2018-09-03 11:26 | CP.PCM.PN ---
<Seth Dale - Last Filed: 09/03/18 15:44> Subjective - Date & Time of Evaluation Date of Evaluation: 09/03/18 Time of Evaluation: 11:23 - Subjective Subjective: Seth Dale DO, PGY-2: Hospitalist Progress Note for Dr. Ortega Patient was seen and examined at bedside. Patient reports four episodes of vomiting overnight. She reports not passing a bowel movement in four days. We discussed the utility of performing an MRI to rule out any bony infection. Objective - Vital Signs/Intake and Output Vital Signs (last 24 hours): Temp Pulse Resp BP Pulse Ox 98.4 F 71 20 129/62 98 09/03/18 07:00 09/03/18 07:00 09/03/18 07:00 09/03/18 10:44 09/03/18 07:00 - Medications Medications: Current Medications Alendronate Sodium (Fosamax) 70 mg PO MON [facility] Aspirin (Ecotrin) 81 mg PO DAILY [facility] Last Admin: 09/03/18 10:43 Dose: 81 mg Atorvastatin Calcium (Lipitor) 10 mg PO DIN [facility] Last Admin: 09/02/18 17:47 Dose: 10 mg Cholecalciferol (Vitamin D) 1,000 intlu PO DAILY [facility] Last Admin: 09/03/18 10:43 Dose: 1,000 intlu Clopidogrel Bisulfate (Plavix) 75 mg PO DAILY [facility] Last Admin: 09/03/18 10:43 Dose: 75 mg Famotidine (Pepcid) 20 mg PO BID [facility] Last Admin: 09/03/18 10:44 Dose: 20 mg Furosemide (Lasix) 20 mg IVP DAILY [facility] Last Admin: 09/03/18 10:44 Dose: 20 mg Glycerin (Glycerin Adult Suppository) 1 sup RC ONCE ONE Stop: 09/03/18 11:22 Hydrochlorothiazide (Microzide) 12.5 mg PO DAILY [facility] Last Admin: 09/03/18 10:43 Dose: 12.5 mg Vancomycin HCl (Vancomycin 1gm) 1 gm in 250 mls @ 167 mls/hr IVPB Q12 [facility]; Protocol Last Admin: 09/03/18 10:42 Dose: 167 mls/hr Sodium Chloride (Sodium Chloride 0.9%) 1,000 mls @ 100 mls/hr IV .Q10H [facility] Losartan Potassium (Cozaar) 100 mg PO DAILY [facility] Last Admin: 09/03/18 10:43 Dose: 100 mg Multivitamins (Thera Tab) 1 tab PO DAILY [facility] Last Admin: 09/03/18 10:43 Dose: 1 tab Ondansetron HCl (Zofran Inj) 4 mg IVP Q4H PRN PRN Reason: Nausea/Vomiting Oxycodone/Acetaminophen (Percocet 5/325 Mg Tab) 1 tab PO Q6H PRN PRN Reason: Pain, severe (8-10) Stop: 09/04/18 22:37 Last Admin: 09/02/18 21:36 Dose: 1 tab Polyethylene Glycol (Miralax) 17 gm PO BID [facility] Primidone (Mysoline) 50 mg PO HS [facility] Last Admin: 09/02/18 21:36 Dose: 50 mg Topiramate (Topamax) 50 mg PO HS [facility]; Protocol Last Admin: 09/02/18 21:36 Dose: 50 mg - Labs Labs: 09/03/18 07:30 09/03/18 07:30 - Constitutional Appears: No Acute Distress, Chronically Ill - Head Exam Head Exam: ATRAUMATIC, NORMOCEPHALIC - Eye Exam Eye Exam: EOMI, Normal appearance - ENT Exam ENT Exam: Mucous Membranes Dry - Neck Exam Neck Exam: Normal Inspection - Respiratory Exam Respiratory Exam: Clear to Ausculation Bilateral, NORMAL BREATHING PATTERN. absent: Accessory Muscle Use - Cardiovascular Exam Cardiovascular Exam: RRR, +S1, +S2 - GI/Abdominal Exam GI & Abdominal Exam: Soft, Normal Bowel Sounds. absent: Guarding, Rebound - Extremities Exam Extremities Exam: absent: Calf Tenderness Additional comments: left leg appears iodinated, swollen with scabbed areas - Neurological Exam Neurological Exam: Alert, Awake, Oriented x3 - Psychiatric Exam Psychiatric exam: Normal Affect, Normal Mood - Skin Skin Exam: Dry, Intact, Normal Color, Warm Assessment and Plan - Assessment and Plan (Free Text) Assessment: 72 yo F with pmhx of HTN, HLD, CAD s/p 2 stents last in 2009, who presents to the ED for worsening left lower leg pain/swelling s/p recent hospital discharge. Plan: Left lower leg pain/swelling: -Likely cellulitis, no compartment syndrome sx, peripheral pulses palpable -patient afebrile with leukocytosis -US LLE: negative for DVT -continue vancomycin -f/u blood cx -leg elevation -MRI LLE ordered -ID consulted, Dr. Eagle Fernando Hx of HTN: - Cont home Losartan, hctz Anemia: -H/H stable. continue monitoring -iron studies point to iron deficiency anemia CAD s/p 2 stents: - Cont Asa, Plavix Prophylaxis: -DVT ppx:SCD -GI ppx: pepcid Heart healthy diet Case reviewed and plan discussed with attending physician, Dr. Ortega <Chel rOtega - Last Filed: 09/03/18 18:01> Objective - Vital Signs/Intake and Output Vital Signs (last 24 hours): Temp Pulse Resp BP Pulse Ox 98.1 F 80 16 106/49 L 94 L 09/03/18 17:05 09/03/18 17:05 09/03/18 17:05 09/03/18 17:05 09/03/18 17:05 Intake and Output: 09/03/18 09/03/18 06:59 18:59 Intake Total 240 Balance 240 - Medications Medications: Current Medications Alendronate Sodium (Fosamax) 70 mg PO MON [facility] Aspirin (Ecotrin) 81 mg PO DAILY [facility] Last Admin: 09/03/18 10:43 Dose: 81 mg Atorvastatin Calcium (Lipitor) 10 mg PO DIN [facility] Last Admin: 09/03/18 17:47 Dose: 10 mg Cholecalciferol (Vitamin D) 1,000 intlu PO DAILY [facility] Last Admin: 09/03/18 10:43 Dose: 1,000 intlu Clopidogrel Bisulfate (Plavix) 75 mg PO DAILY [facility] Last Admin: 09/03/18 10:43 Dose: 75 mg Famotidine (Pepcid) 20 mg PO BID [facility] Last Admin: 09/03/18 17:47 Dose: 20 mg Furosemide (Lasix) 20 mg IVP DAILY [facility] Last Admin: 09/03/18 10:44 Dose: 20 mg Hydrochlorothiazide (Microzide) 12.5 mg PO DAILY [facility] Last Admin: 09/03/18 10:43 Dose: 12.5 mg Vancomycin HCl (Vancomycin 1gm) 1 gm in 250 mls @ 167 mls/hr IVPB Q12 [facility]; Protocol Last Admin: 09/03/18 10:42 Dose: 167 mls/hr Sodium Chloride (Sodium Chloride 0.9%) 1,000 mls @ 100 mls/hr IV .Q10H [facility] Losartan Potassium (Cozaar) 100 mg PO DAILY [facility] Last Admin: 09/03/18 10:43 Dose: 100 mg Multivitamins (Thera Tab) 1 tab PO DAILY [facility] Last Admin: 09/03/18 10:43 Dose: 1 tab Ondansetron HCl (Zofran Inj) 4 mg IVP Q4H PRN PRN Reason: Nausea/Vomiting Oxycodone/Acetaminophen (Percocet 5/325 Mg Tab) 1 tab PO Q6H PRN PRN Reason: Pain, severe (8-10) Stop: 09/04/18 22:37 Last Admin: 09/02/18 21:36 Dose: 1 tab Polyethylene Glycol (Miralax) 17 gm PO BID [facility] Last Admin: 09/03/18 17:47 Dose: 17 gm Primidone (Mysoline) 50 mg PO HS [facility] Last Admin: 09/02/18 21:36 Dose: 50 mg Topiramate (Topamax) 50 mg PO HS [facility]; Protocol Last Admin: 09/02/18 21:36 Dose: 50 mg - Labs Labs: 09/03/18 07:30 09/03/18 07:30 Attending/Attestation - Attestation I have personally seen and examined this patient.: Yes I have fully participated in the care of the patient.: Yes I have reviewed all pertinent clinical information, including history, physical exam and plan: Yes Notes (Text): 09/03/18 17:58 72 year old female with past medical history of hypertension and CAD s/p stents who presented with complaint of worsening left leg pain and swelling s/p recent fall. She is on iv antibiotics for LE cellulitis. MRI is ordered to rule out osteomyelitis. LE doppler showed fluid collection, possible hematoma from recent fall. PT evaluation was appreciated who recommended TCU. Today she complains of nausea, vomiting x 1 day and constipation x 4 days. Will add zofran prn and miralax for constipation. Chel Ortega MD Hospitalist.
[2018-09-03] MEDS: POLYETHYLENE GLYCOL 3350 17 GM/Dose PACKET PO SCH ×2 (12:06→17:47)
--- NOTE | 2018-09-03 12:41 | PN ---
DATE: 09/03/2018 SUBJECTIVE: The patient is in bed in no acute distress, nontoxic. PHYSICAL EXAMINATION: VITAL SIGNS: Temperature is 98, blood pressure is 120/60, respiratory of 18, heart rate of 59. HEENT: Unremarkable. NECK: Supple. LUNGS: Have decreased breath sounds. HEART: Normal S1, S2. ABDOMEN: Soft, nontender. LABORATORY EXAMINATION: Reveals a white count of 11,400, hemoglobin of 10. Chemistries reveals a BUN of 18, creatinine of 0.7 and procalcitonin is noted. Procalcitonin is negative. Blood cultures are negative. Review of orders reveals the patient to be on vancomycin. MRI is pending. ASSESSMENT AND PLAN: This is a 72-year-old female seen earlier in [facility], bed 2 with hypertensive, hyperlipidemia, coronary artery disease, percutaneous coronary intervention, stent placement and admitted with left lower extremity cellulitis on vancomycin and Zosyn. In the emergency room, we continue the vancomycin at this time and await for cultures and MRI. The patient did have an ultrasound which showed a complete complex fluid collection and debris latent process. We will follow with you. Eagle Fernando MD
[2018-09-03] MEDS: Oxycodone/Acetaminophen 5/325 mg Tab PO PRN (23:43)
[2018-09-04] MEDS: Sodium Chloride 0.9% 1,000 ML IV SCH ×2 (05:29→19:21)
[2018-09-04 07:49] LABS: BASO # 0.03 K/mm3 (0.0-2.0); BASO % 0.5 % (0.0-3.0); EOS # 0.1 (0.0-0.7); EOS % 1.6 % (1.5-5.0); GRAN # 4.33 (1.4-6.5); GRAN % 68.6 % (50.0-68.0); HEMOGLOBIN 9.4 g/dL (12.0-16.0); LYMPH # 1.1 (1.2-3.4); LYMPH % 17.3 % (22.0-35.0); MEAN CELL VOLUME 89.5 fl (80.0-105.0); MEAN CORPUSCULAR HGB CONC 32.4 g/dl (31.0-37.0); MEAN PLATELET VOLUME 8.2 fl (7.0-11.0); MONO # 0.8 (0.1-0.6); RBC 3.24 10^6/uL (3.5-6.1); RED CELL DISTRIBUTION WIDTH 13.1 % (11.5-14.5); WHITE BLOOD COUNT 6.3 10^3/uL (4.5-11.0)
[2018-09-04 08:15] LABS: ALB/GLOB RATIO 1.2 (1.1-1.8); ALBUMIN 3.4 g/dL (3.0-4.8); ALT/SGPT 34 U/L (7-56); AST/SGOT 24 U/L (14-36); BLOOD UREA NITROGEN 20 mg/dL (7-21); CALCIUM 8.2 mg/dL (8.4-10.5); GFR NON-AFRICAN AMERICAN > 60
[2018-09-04] MEDS: Multivitamin Therapeutic Tab PO SCH (10:39)
[2018-09-04] MEDS: Vancomycin 1gm in NS 250ml 1 GM/250 ML BAG IVPB SCH ×2 (10:40→22:11)
[2018-09-04] MEDS: Cholecalciferol 1,000 INTLU TAB PO SCH (10:40)
[2018-09-04] MEDS: POLYETHYLENE GLYCOL 3350 17 GM/Dose PACKET PO SCH ×2 (10:41→18:33)
[2018-09-04] MEDS ORDERED: Gadodiamide 287 MG/ML VIAL (15ML) IV ONE (13:45)
--- NOTE | 2018-09-04 15:40 | CP.PCM.PN ---
<Amanda Morton - Last Filed: 09/04/18 15:34> Subjective - Date & Time of Evaluation Date of Evaluation: 09/04/18 Time of Evaluation: 10:11 - Subjective Subjective: Amanda Morton PGY1 Hospital Progress Note Patient seen and examined at bedside this morning. No acute events reported overnight. Abdominal pain improved, denies nausea and vomiting. Offers no new complaints today. MRI pending read. Plan for TCU transfer. Objective - Vital Signs/Intake and Output Vital Signs (last 24 hours): Temp Pulse Resp BP Pulse Ox 97.8 F 57 L 18 127/61 96 09/04/18 14:30 09/04/18 14:30 09/04/18 14:30 09/04/18 14:30 09/04/18 14:30 Intake and Output: 09/04/18 09/04/18 06:59 18:59 Intake Total 640 Balance 640 - Medications Medications: Current Medications Alendronate Sodium (Fosamax) 70 mg PO MON [facility] Aspirin (Ecotrin) 81 mg PO DAILY [facility] Last Admin: 09/04/18 10:39 Dose: 81 mg Atorvastatin Calcium (Lipitor) 10 mg PO DIN [facility] Last Admin: 09/03/18 17:47 Dose: 10 mg Cholecalciferol (Vitamin D) 1,000 intlu PO DAILY [facility] Last Admin: 09/04/18 10:40 Dose: 1,000 intlu Clopidogrel Bisulfate (Plavix) 75 mg PO DAILY [facility] Last Admin: 09/04/18 10:40 Dose: 75 mg Famotidine (Pepcid) 20 mg PO BID [facility] Last Admin: 09/04/18 10:40 Dose: 20 mg Furosemide (Lasix) 20 mg IVP DAILY [facility] Last Admin: 09/04/18 10:39 Dose: 20 mg Hydrochlorothiazide (Microzide) 12.5 mg PO DAILY [facility] Last Admin: 09/04/18 10:41 Dose: Not Given Vancomycin HCl (Vancomycin 1gm) 1 gm in 250 mls @ 167 mls/hr IVPB Q12 [facility]; Protocol Last Admin: 09/04/18 10:40 Dose: 167 mls/hr Sodium Chloride (Sodium Chloride 0.9%) 1,000 mls @ 100 mls/hr IV .Q10H [facility] Last Admin: 09/04/18 05:29 Dose: 100 mls/hr Losartan Potassium (Cozaar) 100 mg PO DAILY [facility] Last Admin: 09/04/18 10:41 Dose: 100 mg Multivitamins (Thera Tab) 1 tab PO DAILY [facility] Last Admin: 09/04/18 10:39 Dose: 1 tab Ondansetron HCl (Zofran Inj) 4 mg IVP Q4H PRN PRN Reason: Nausea/Vomiting Oxycodone/Acetaminophen (Percocet 5/325 Mg Tab) 1 tab PO Q6H PRN PRN Reason: Pain, severe (8-10) Stop: 09/04/18 22:37 Last Admin: 09/03/18 23:43 Dose: 1 tab Polyethylene Glycol (Miralax) 17 gm PO BID [facility] Last Admin: 09/04/18 10:41 Dose: Not Given Primidone (Mysoline) 50 mg PO HS [facility] Last Admin: 09/03/18 22:18 Dose: 50 mg Topiramate (Topamax) 50 mg PO HS [facility]; Protocol Last Admin: 09/03/18 22:18 Dose: 50 mg - Labs Labs: 09/04/18 07:00 09/04/18 07:00 - Additional Findings Additional findings: - Constitutional Appears: No Acute Distress, Chronically Ill - Head Exam Head Exam: ATRAUMATIC, NORMOCEPHALIC - Eye Exam Eye Exam: EOMI, Normal appearance - ENT Exam ENT Exam: Mucous Membranes Dry - Neck Exam Neck Exam: Normal Inspection - Respiratory Exam Respiratory Exam: Clear to Ausculation Bilateral, NORMAL BREATHING PATTERN. absent: Accessory Muscle Use - Cardiovascular Exam Cardiovascular Exam: RRR, +S1, +S2 - GI/Abdominal Exam GI & Abdominal Exam: Soft, Normal Bowel Sounds. absent: Guarding, Rebound - Extremities Exam Extremities Exam: absent: Calf Tenderness Additional comments: left leg has multiple lesions that are healing with granulation tissue; no gross bleeding or drainage appreciated - Neurological Exam Neurological Exam: Alert, Awake, Oriented x3 - Skin Skin Exam: Dry, Intact, Normal Color, Warm Assessment and Plan - Assessment and Plan (Free Text) Assessment: 72 yo F with pmhx of HTN, HLD, CAD s/p 2 stents last in 2009, who presents to the ED for worsening left lower leg pain/swelling s/p recent hospital discharge. Plan: Left lower leg pain/swelling: -Likely 2/2 cellulitis -afebrile, no WBC -MRI pending read to r/o osteomyelitis -vancomycin day 3 -PT recommends TCU rehab -US LLE: negative for DVT -continue vancomycin -ID consulted, Dr. Eagle Fernando Hx of HTN: -cont home Losartan, hctz Anemia: -Hg 9.4 from 10.4 yesterday, will monitor -iron studies point to iron deficiency anemia CAD s/p 2 stents: - Cont Asa, Plavix PPX/Diet -SCD, pepcid -HHD Patient seen and case discussed with attending, Dr. Ortega <Chel Ortega - Last Filed: 09/04/18 16:33> Objective - Vital Signs/Intake and Output Vital Signs (last 24 hours): Temp Pulse Resp BP Pulse Ox 97.8 F 57 L 18 127/61 96 09/04/18 14:30 09/04/18 14:30 09/04/18 14:30 09/04/18 14:30 09/04/18 14:30 Intake and Output: 09/04/18 09/04/18 06:59 18:59 Intake Total 640 Balance 640 - Medications Medications: Current Medications Alendronate Sodium (Fosamax) 70 mg PO MON [facility] Aspirin (Ecotrin) 81 mg PO DAILY [facility] Last Admin: 09/04/18 10:39 Dose: 81 mg Atorvastatin Calcium (Lipitor) 10 mg PO DIN [facility] Last Admin: 09/03/18 17:47 Dose: 10 mg Cholecalciferol (Vitamin D) 1,000 intlu PO DAILY [facility] Last Admin: 09/04/18 10:40 Dose: 1,000 intlu Clopidogrel Bisulfate (Plavix) 75 mg PO DAILY [facility] Last Admin: 09/04/18 10:40 Dose: 75 mg Famotidine (Pepcid) 20 mg PO BID [facility] Last Admin: 09/04/18 10:40 Dose: 20 mg Furosemide (Lasix) 20 mg IVP DAILY [facility] Last Admin: 09/04/18 10:39 Dose: 20 mg Hydrochlorothiazide (Microzide) 12.5 mg PO DAILY [facility] Last Admin: 09/04/18 10:41 Dose: Not Given Vancomycin HCl (Vancomycin 1gm) 1 gm in 250 mls @ 167 mls/hr IVPB Q12 [facility]; Protocol Last Admin: 09/04/18 10:40 Dose: 167 mls/hr Sodium Chloride (Sodium Chloride 0.9%) 1,000 mls @ 100 mls/hr IV .Q10H [facility] Last Admin: 09/04/18 05:29 Dose: 100 mls/hr Losartan Potassium (Cozaar) 100 mg PO DAILY [facility] Last Admin: 09/04/18 10:41 Dose: 100 mg Multivitamins (Thera Tab) 1 tab PO DAILY [facility] Last Admin: 09/04/18 10:39 Dose: 1 tab Ondansetron HCl (Zofran Inj) 4 mg IVP Q4H PRN PRN Reason: Nausea/Vomiting Oxycodone/Acetaminophen (Percocet 5/325 Mg Tab) 1 tab PO Q6H PRN PRN Reason: Pain, severe (8-10) Stop: 09/04/18 22:37 Last Admin: 09/03/18 23:43 Dose: 1 tab Polyethylene Glycol (Miralax) 17 gm PO BID [facility] Last Admin: 09/04/18 10:41 Dose: Not Given Primidone (Mysoline) 50 mg PO HS [facility] Last Admin: 09/03/18 22:18 Dose: 50 mg Topiramate (Topamax) 50 mg PO HS [facility]; Protocol Last Admin: 09/03/18 22:18 Dose: 50 mg - Labs Labs: 09/04/18 07:00 09/04/18 07:00 Attending/Attestation - Attestation I have personally seen and examined this patient.: Yes I have fully participated in the care of the patient.: Yes I have reviewed all pertinent clinical information, including history, physical exam and plan: Yes Notes (Text): 09/04/18 16:21 72 year old female with past medical history of hypertension and CAD s/p stents who presented with complaint of worsening left leg pain and swelling s/p recent fall. She is on iv antibiotics for LE cellulitis. MRI was done today with pending read to rule out osteomyelitis. LE doppler showed fluid collection, possible hematoma from recent fall. PT evaluation was appreciated who recommended TCU. Possible plan to transfer tomorrow to TCU if MRI is negative. Nausea, vomiting from yesterday resolved. Constipation resolved with miralax. Chel Ortega MD Hospitalist.
[2018-09-04] MEDS ORDERED: Potassium Chloride 40 mEq/30 ml LIQ UD PO ONE (17:32)
--- NOTE | 2018-09-04 19:25 | PN ---
DATE: 09/04/2018 SUBJECTIVE: The patient is seen in room 578, bed 2. Ms. Alona Warren is doing well. She is weak. No nausea or vomiting. PHYSICAL EXAMINATION: VITAL SIGNS: Temperature is 98, blood pressure is 105/60, respiratory 20, heart rate of 61. HEENT: Unremarkable. NECK: Supple. CARDIOPULMONARY: Normal S1, S2. LUNGS: Have decreased breath sounds. ABDOMEN: Soft, nontender. LABORATORY DATA: Laboratory examination reveals a white count of 6.3, hemoglobin of 9, sed rate of 37, BUN of 20, creatinine of 0.8, procalcitonin 0.05. Blood cultures are negative. Complex fluid collection debris latent process is read from the ultrasound of the left leg. Review of orders reveals the patient to be on vancomycin. MRI is pending. ASSESSMENT AND PLAN: This is a 72-year-old female seen earlier today 578, bed 2 with a history of hypertension, hyperlipidemia, coronary artery disease, PCI stent placement, admitted with left lower extremity cellulitis. Currently on vancomycin. The leg is improving and it appears ecchymotic. We will check on the MRI. Concerned about the ultrasound findings. The patient has significant pain in the leg. We will also order a vancomycin. Trough level for tomorrow morning . We will follow with you. Eagle Fernando MD
[2018-09-04] MEDS: Oxycodone/Acetaminophen 5/325 mg Tab PO PRN (22:10)
--- NOTE | 2018-09-05 07:04 | CP.PCM.PN ---
Subjective - Date & Time of Evaluation Date of Evaluation: 09/05/18 Time of Evaluation: 07:04 - Subjective Subjective: Resident Progress Note for Hospitalist Service Objective - Vital Signs/Intake and Output Vital Signs (last 24 hours): Temp Pulse Resp BP Pulse Ox 97.4 F L 61 16 133/64 95 09/04/18 21:40 09/04/18 21:40 09/04/18 21:40 09/04/18 21:40 09/04/18 21:40 - Medications Medications: Current Medications Alendronate Sodium (Fosamax) 70 mg PO MON [facility] Aspirin (Ecotrin) 81 mg PO DAILY [facility] Last Admin: 09/04/18 10:39 Dose: 81 mg Atorvastatin Calcium (Lipitor) 10 mg PO DIN [facility] Last Admin: 09/04/18 18:32 Dose: 10 mg Cholecalciferol (Vitamin D) 1,000 intlu PO DAILY [facility] Last Admin: 09/04/18 10:40 Dose: 1,000 intlu Clopidogrel Bisulfate (Plavix) 75 mg PO DAILY [facility] Last Admin: 09/04/18 10:40 Dose: 75 mg Famotidine (Pepcid) 20 mg PO BID [facility] Last Admin: 09/04/18 18:32 Dose: 20 mg Furosemide (Lasix) 20 mg IVP DAILY [facility] Last Admin: 09/04/18 10:39 Dose: 20 mg Hydrochlorothiazide (Microzide) 12.5 mg PO DAILY [facility] Last Admin: 09/04/18 10:41 Dose: Not Given Vancomycin HCl (Vancomycin 1gm) 1 gm in 250 mls @ 167 mls/hr IVPB Q12 [facility]; Protocol Last Admin: 09/04/18 22:11 Dose: 167 mls/hr Sodium Chloride (Sodium Chloride 0.9%) 1,000 mls @ 100 mls/hr IV .Q10H [facility] Last Admin: 09/04/18 19:21 Dose: 100 mls/hr Losartan Potassium (Cozaar) 100 mg PO DAILY [facility] Last Admin: 09/04/18 10:41 Dose: 100 mg Multivitamins (Thera Tab) 1 tab PO DAILY [facility] Last Admin: 09/04/18 10:39 Dose: 1 tab Ondansetron HCl (Zofran Inj) 4 mg IVP Q4H PRN PRN Reason: Nausea/Vomiting Polyethylene Glycol (Miralax) 17 gm PO BID [facility] Last Admin: 09/04/18 18:33 Dose: Not Given Primidone (Mysoline) 50 mg PO HS [facility] Last Admin: 09/04/18 22:10 Dose: 50 mg Topiramate (Topamax) 50 mg PO HS [facility]; Protocol Last Admin: 09/04/18 22:10 Dose: 50 mg - Labs Labs: 09/04/18 07:00 09/04/18 07:00
[2018-09-05 08:04] LABS: BASO # 0.02 K/mm3 (0.0-2.0); BASO % 0.3 % (0.0-3.0); EOS # 0.2 (0.0-0.7); EOS % 2.3 % (1.5-5.0); GRAN # 4.26 (1.4-6.5); GRAN % 66.2 % (50.0-68.0); HEMOGLOBIN 9.1 g/dL (12.0-16.0); LYMPH # 1.1 (1.2-3.4); MEAN CELL VOLUME 88.6 fl (80.0-105.0); MEAN CORPUSCULAR HEMOGLOBIN 29.6 pg (25.0-35.0); MEAN CORPUSCULAR HGB CONC 33.5 g/dl (31.0-37.0); MEAN PLATELET VOLUME 8.1 fl (7.0-11.0); MONO # 0.9 (0.1-0.6); MONO % 14.2 % (1.0-6.0); RBC 3.07 10^6/uL (3.5-6.1); RED CELL DISTRIBUTION WIDTH 13.1 % (11.5-14.5); WHITE BLOOD COUNT 6.4 10^3/uL (4.5-11.0)
[2018-09-05 08:30] LABS: ALB/GLOB RATIO 1.2 (1.1-1.8); ALBUMIN 3.4 g/dL (3.0-4.8); ALT/SGPT 36 U/L (7-56); AST/SGOT 31 U/L (14-36); BLOOD UREA NITROGEN 19 mg/dL (7-21); CALCIUM 8.8 mg/dL (8.4-10.5); GFR NON-AFRICAN AMERICAN > 60
[2018-09-05] MEDS: Vancomycin 1gm in NS 250ml 1 GM/250 ML BAG IVPB SCH (12:30)
[2018-09-05] MEDS: POLYETHYLENE GLYCOL 3350 17 GM/Dose PACKET PO SCH ×2 (12:31→18:57)
[2018-09-05] MEDS: Cholecalciferol 1,000 INTLU TAB PO SCH (12:31)
[2018-09-05] MEDS: Multivitamin Therapeutic Tab PO SCH (12:31)
--- NOTE | 2018-09-05 14:06 | MRI ---
Date of service: 09/04/2018 PROCEDURE: MRI of the left lower extremity with and without contrast HISTORY: r/o osteo COMPARISON: TECHNIQUE: MRI of the left tibia and fibula were obtained in multiple planes using multiple pulse sequences. 15 cc of Omniscan. FINDINGS: There are no bony abnormalities seen to suggest osteomyelitis. There is no enhancement or edema. There is a subcutaneous loculated fluid collection anterior and lateral to the proximal tibia. This measures 17 mm in thickness and 76 mm in with. On the sagittal view it measures 101 mm in height. This could represent a subcutaneous abscess. This could represent a resolving hematoma. This is immediately beneath the skin surface and would be easily accessible to aspiration. The report concurs with the preliminary [facility] report IMPRESSION: Loculated fluid collection possible resolving hematoma or abscess. No evidence of osteomyelitis.
--- NOTE | 2018-09-05 15:21 | CP.PCM.PN ---
Subjective - Date & Time of Evaluation Date of Evaluation: 09/05/18 Time of Evaluation: 12:30 - Subjective Subjective: Less pain the left leg, no fevers, no nausea. Objective - Vital Signs/Intake and Output Vital Signs (last 24 hours): Temp Pulse Resp BP Pulse Ox 97.8 F 55 L 20 129/70 99 09/05/18 06:00 09/05/18 06:00 09/05/18 06:00 09/05/18 12:31 09/05/18 06:00 - Medications Medications: Current Medications Alendronate Sodium (Fosamax) 70 mg PO MON [facility] Last Admin: 09/05/18 13:35 Dose: 70 mg Aspirin (Ecotrin) 81 mg PO DAILY [facility] Last Admin: 09/05/18 12:31 Dose: 81 mg Atorvastatin Calcium (Lipitor) 10 mg PO DIN [facility] Last Admin: 09/04/18 18:32 Dose: 10 mg Cholecalciferol (Vitamin D) 1,000 intlu PO DAILY [facility] Last Admin: 09/05/18 12:31 Dose: 1,000 intlu Clopidogrel Bisulfate (Plavix) 75 mg PO DAILY [facility] Last Admin: 09/05/18 12:31 Dose: 75 mg Famotidine (Pepcid) 20 mg PO BID [facility] Last Admin: 09/05/18 12:31 Dose: 20 mg Furosemide (Lasix) 20 mg IVP DAILY [facility] Last Admin: 09/05/18 12:31 Dose: 20 mg Hydrochlorothiazide (Microzide) 12.5 mg PO DAILY [facility] Last Admin: 09/05/18 12:31 Dose: 12.5 mg Vancomycin HCl (Vancomycin 1gm) 1 gm in 250 mls @ 167 mls/hr IVPB Q12 [facility]; Protocol Last Admin: 09/05/18 12:30 Dose: 167 mls/hr Sodium Chloride (Sodium Chloride 0.9%) 1,000 mls @ 100 mls/hr IV .Q10H [facility] Last Admin: 09/04/18 19:21 Dose: 100 mls/hr Losartan Potassium (Cozaar) 100 mg PO DAILY [facility] Last Admin: 09/05/18 12:49 Dose: 100 mg Multivitamins (Thera Tab) 1 tab PO DAILY [facility] Last Admin: 09/05/18 12:31 Dose: 1 tab Ondansetron HCl (Zofran Inj) 4 mg IVP Q4H PRN PRN Reason: Nausea/Vomiting Polyethylene Glycol (Miralax) 17 gm PO BID [facility] Last Admin: 09/05/18 12:31 Dose: 17 gm Primidone (Mysoline) 50 mg PO HS [facility] Last Admin: 09/04/18 22:10 Dose: 50 mg Topiramate (Topamax) 50 mg PO HS [facility]; Protocol Last Admin: 09/04/18 22:10 Dose: 50 mg - Labs Labs: 09/05/18 07:57 09/05/18 07:57 - Constitutional Appears: No Acute Distress, Chronically Ill - Head Exam Head Exam: NORMAL INSPECTION - Neck Exam Neck Exam: absent: Meningismus - Respiratory Exam Respiratory Exam: Decreased Breath Sounds - Cardiovascular Exam Cardiovascular Exam: +S1, +S2 - GI/Abdominal Exam GI & Abdominal Exam: Soft. absent: Tenderness - Extremities Exam Additional comments: less swelling of left leg Assessment and Plan - Assessment and Plan (Free Text) Plan: Assessment Left lower extremity skin and structure infection with associated hematoma after trauma, R/O infected collection HTN dyslipidemia CAD Plan continue Vancomycin day 4 for at least 7-10 days reviewed MRI of left leg - hematoma or fluid collection - would recommend surgical evaluation will continue to monitor clinically
--- NOTE | 2018-09-05 15:33 | CP.PCM.DIS ---
<Maday Botello L - Last Filed: 09/05/18 16:42> Provider - Provider Date of Admission: 09/02/18 10:23 Attending physician: Chel Ortega MD Primary care physician: Scooter Rogers MD Consults: 09/01/18 22:21 Infectious Disease Consult Routine Comment: Consulting Provider: Eagle Fernando Consulting Physician: Eagle Fernando Reason for Consult: LLE cellulitis 09/02/18 15:50 Evaluation for TRCU Routine Comment: Physician Instructions: Reason For Exam: please eval. Time Spent in preparation of Discharge (in minutes): 35 Diagnosis - Discharge Diagnosis (1) Hematoma of leg Status: Acute Hospital Course - Lab Results Lab Results: Micro Results 09/01/18 19:55 Blood Blood Culture - Preliminary NO GROWTH AFTER 3 DAYS 09/01/18 19:30 Blood Blood Culture - Preliminary NO GROWTH AFTER 3 DAYS Most Recent Lab Values WBC 6.4 10^3/uL (4.5-11.0) 09/05/18 07:57 RBC 3.07 10^6/uL (3.5-6.1) L 09/05/18 07:57 Hgb 9.1 g/dL (12.0-16.0) L 09/05/18 07:57 Hct 27.2 % (36.0-48.0) L 09/05/18 07:57 MCV 88.6 fl (80.0-105.0) 09/05/18 07:57 MCH 29.6 pg (25.0-35.0) 09/05/18 07:57 MCHC 33.5 g/dl (31.0-37.0) 09/05/18 07:57 RDW 13.1 % (11.5-14.5) 09/05/18 07:57 Plt Count 216 10^3/uL (120.0-450.0) 09/05/18 07:57 MPV 8.1 fl (7.0-11.0) 09/05/18 07:57 Gran % 66.2 % (50.0-68.0) 09/05/18 07:57 Lymph % (Auto) 17.0 % (22.0-35.0) L 09/05/18 07:57 [place] % (Auto) 14.2 % (1.0-6.0) H 09/05/18 07:57 Eos % (Auto) 2.3 % (1.5-5.0) 09/05/18 07:57 Baso % (Auto) 0.3 % (0.0-3.0) 09/05/18 07:57 Gran # 4.26 (1.4-6.5) 09/05/18 07:57 Lymph # (Auto) 1.1 (1.2-3.4) L 09/05/18 07:57 [place] # (Auto) 0.9 (0.1-0.6) H 09/05/18 07:57 Eos # (Auto) 0.2 (0.0-0.7) 09/05/18 07:57 Baso # (Auto) 0.02 K/mm3 (0.0-2.0) 09/05/18 07:57 Neutrophils % (Manual) 91 % (50.0-70.0) H 09/03/18 07:30 Lymphocytes % (Manual) 2 % (22.0-35.0) L 09/03/18 07:30 Monocytes % (Manual) 7 % (1.0-6.0) H 09/03/18 07:30 Toxic Granulation 1+ 09/03/18 07:30 Platelet Evaluation Normal (NORMAL) 09/03/18 07:30 Hypochromasia 1+ 09/03/18 07:30 Rouleaux 2+ 09/03/18 07:30 ESR 37 mm/hr (0.0-20.0) H 09/02/18 05:40 Retic Count 3.15 % (0.5-1.5) H 09/02/18 06:30 Sodium 140 mmol/L (132-148) 09/05/18 07:57 Potassium 4.1 mmol/L (3.6-5.0) 09/05/18 07:57 Chloride 108 mmol/L (98-107) H 09/05/18 07:57 Carbon Dioxide 29 mmol/L (21-33) 09/05/18 07:57 Anion Gap 7 (10-20) L 09/05/18 07:57 BUN 19 mg/dL (7-21) 09/05/18 07:57 Creatinine 0.8 mg/dl (0.7-1.2) 09/05/18 07:57 Est GFR ( Amer) > 60 09/05/18 07:57 Est GFR (Non-Af Amer) > 60 09/05/18 07:57 Random Glucose 103 mg/dL (70-110) 09/05/18 07:57 Lactic Acid 1.4 mmol/L (0.7-2.1) 09/02/18 08:00 Calcium 8.8 mg/dL (8.4-10.5) 09/05/18 07:57 Phosphorus 3.5 mg/dL (2.5-4.5) 09/02/18 05:40 Magnesium 2.3 mg/dL (1.7-2.2) H 09/02/18 05:40 Iron 39 ug/dL (45-180) L 09/02/18 06:30 TIBC 286 ug/dL (265-497) 09/02/18 06:30 % Saturation 14 % (20-55) L 09/02/18 06:30 Transferrin 220.17 mg/dL (206-381) 09/02/18 07:10 Caroline Transferrin Receptr 1.71 mg/L (0.76-1.76) 09/02/18 07:00 Ferritin 115.0 ng/mL 09/02/18 05:40 Total Bilirubin 0.5 mg/dL (0.2-1.3) 09/05/18 07:57 AST 31 U/L (14-36) 09/05/18 07:57 ALT 36 U/L (7-56) 09/05/18 07:57 Alkaline Phosphatase 72 U/L (38-126) 09/05/18 07:57 Total Creatine Kinase 30 U/L (35-230) L 09/02/18 05:40 C-Reactive Protein 40.60 mg/L (0.0-9.9) H 09/02/18 05:40 Total Protein 6.1 g/dL (5.8-8.3) 09/05/18 07:57 Albumin 3.4 g/dL (3.0-4.8) 09/05/18 07:57 Globulin 2.8 gm/dL 09/05/18 07:57 Albumin/Globulin Ratio 1.2 (1.1-1.8) 09/05/18 07:57 Vitamin B12 269 pg/mL (239-931) 09/02/18 05:40 Folate 8.5 ng/mL 09/02/18 07:10 Procalcitonin 0.05 NG/ML (0.19-0.49) L 09/02/18 07:10 Vancomycin Trough 17.2 ug/mL (5.0-10.0) H* 09/05/18 09:00 - Hospital Course Hospital Course: On admission: 72 yo F with pmhx of HTN, HLD, CAD s/p 2 stents last in 2009, who presents to the ED for worsening left lower leg pain and swelling. Pain is 9/10, constant, burning/pressure in nature, aggravated by ambulation/sitting for long period of time, alleviated by leg elevation, extends from the knee to the foot. Patient was just discharged from [facility] with one day of hospital admission s/p mechanical fall. Imaging studies, lab were normal and patient discharged on percocet prn and bacitracin for her lower limb superficial wounds. Patient reports progressive symptoms of pressure and pain in the left leg. She denied associated fever, chills, wound discharge, muscle weakness, loss of sensation. Patient was not able to see her PMD Dr Rogers as his office was closed for the holiday. She also denied CP, SOB, palpitations, headache, dizziness, changes in bowel movement, urinary symptoms. She has been using walker with difficulty ambulating due to pain and pressure. During hospital course: Patient was started on vancomycin due to suspicion for cellulitis. Ultrasound of LLE was negative for DVT. ID was consulted. MRI was done which showed loculated fluid collection possible resolving hematoma or abscess, no evidence of osteomyelitis. Patient was optimized medically and discharged to TCU for further physical therapy. Please see EMR for full summary. - Date & Time of H&P Date of H&P: 09/02/18 Time of H&P: 02:30 Discharge Exam - Additional Findings Additional findings: - Constitutional Appears: No Acute Distress, Chronically Ill - Head Exam Head Exam: ATRAUMATIC, NORMOCEPHALIC - Eye Exam Eye Exam: EOMI, Normal appearance - ENT Exam ENT Exam: Mucous Membranes Dry - Neck Exam Neck Exam: Normal Inspection - Respiratory Exam Respiratory Exam: Clear to Ausculation Bilateral, NORMAL BREATHING PATTERN. absent: Accessory Muscle Use - Cardiovascular Exam Cardiovascular Exam: RRR, +S1, +S2 - GI/Abdominal Exam GI & Abdominal Exam: Soft, Normal Bowel Sounds. absent: Guarding, Rebound - Extremities Exam Extremities Exam: absent: Calf Tenderness Additional comments: left leg has multiple lesions that are healing with granulation tissue; no gross bleeding or drainage appreciated - Neurological Exam Neurological Exam: Alert, Awake, Oriented x3 - Skin Skin Exam: Dry, Intact, Normal Color, Warm Discharge Plan - Follow Up Plan Condition: STABLE Disposition: REHAB FACILITY/REHAB UNIT Additional Instructions: Patient discharged to TCU Referrals: Scooter Rogers MD [Primary Care Provider] - <Chel Ortega - Last Filed: 09/05/18 18:11> Provider - Provider Date of Admission: 09/02/18 10:23 Attending physician: Chel Ortega MD Primary care physician: Scooter Rogers MD Consults: 09/01/18 22:21 Infectious Disease Consult Routine Comment: Consulting Provider: Eagle Fernando Consulting Physician: Eagle Fernando Reason for Consult: LLE cellulitis 09/02/18 15:50 Evaluation for TRCU Routine Comment: Physician Instructions: Reason For Exam: please eval. 09/05/18 18:00 Consult [Physician Consult] Routine Consulting Provider: Nilo Lorenzana Comment: Consulting Physician: Nilo Lorenzana Reason for Consult: LE fluid collection/hematoma Hospital Course - Lab Results Lab Results: Micro Results 09/01/18 19:55 Blood Blood Culture - Preliminary NO GROWTH AFTER 3 DAYS 09/01/18 19:30 Blood Blood Culture - Preliminary NO GROWTH AFTER 3 DAYS Most Recent Lab Values WBC 6.4 10^3/uL (4.5-11.0) 09/05/18 07:57 RBC 3.07 10^6/uL (3.5-6.1) L 09/05/18 07:57 Hgb 9.1 g/dL (12.0-16.0) L 09/05/18 07:57 Hct 27.2 % (36.0-48.0) L 09/05/18 07:57 MCV 88.6 fl (80.0-105.0) 09/05/18 07:57 MCH 29.6 pg (25.0-35.0) 09/05/18 07:57 MCHC 33.5 g/dl (31.0-37.0) 09/05/18 07:57 RDW 13.1 % (11.5-14.5) 09/05/18 07:57 Plt Count 216 10^3/uL (120.0-450.0) 09/05/18 07:57 MPV 8.1 fl (7.0-11.0) 09/05/18 07:57 Gran % 66.2 % (50.0-68.0) 09/05/18 07:57 Lymph % (Auto) 17.0 % (22.0-35.0) L 09/05/18 07:57 [place] % (Auto) 14.2 % (1.0-6.0) H 09/05/18 07:57 Eos % (Auto) 2.3 % (1.5-5.0) 09/05/18 07:57 Baso % (Auto) 0.3 % (0.0-3.0) 09/05/18 07:57 Gran # 4.26 (1.4-6.5) 09/05/18 07:57 Lymph # (Auto) 1.1 (1.2-3.4) L 09/05/18 07:57 [place] # (Auto) 0.9 (0.1-0.6) H 09/05/18 07:57 Eos # (Auto) 0.2 (0.0-0.7) 09/05/18 07:57 Baso # (Auto) 0.02 K/mm3 (0.0-2.0) 09/05/18 07:57 Neutrophils % (Manual) 91 % (50.0-70.0) H 09/03/18 07:30 Lymphocytes % (Manual) 2 % (22.0-35.0) L 09/03/18 07:30 Monocytes % (Manual) 7 % (1.0-6.0) H 09/03/18 07:30 Toxic Granulation 1+ 09/03/18 07:30 Platelet Evaluation Normal (NORMAL) 09/03/18 07:30 Hypochromasia 1+ 09/03/18 07:30 Rouleaux 2+ 09/03/18 07:30 ESR 37 mm/hr (0.0-20.0) H 09/02/18 05:40 Retic Count 3.15 % (0.5-1.5) H 09/02/18 06:30 Sodium 140 mmol/L (132-148) 09/05/18 07:57 Potassium 4.1 mmol/L (3.6-5.0) 09/05/18 07:57 Chloride 108 mmol/L (98-107) H 09/05/18 07:57 Carbon Dioxide 29 mmol/L (21-33) 09/05/18 07:57 Anion Gap 7 (10-20) L 09/05/18 07:57 BUN 19 mg/dL (7-21) 09/05/18 07:57 Creatinine 0.8 mg/dl (0.7-1.2) 09/05/18 07:57 Est GFR ( Amer) > 60 09/05/18 07:57 Est GFR (Non-Af Amer) > 60 09/05/18 07:57 Random Glucose 103 mg/dL (70-110) 09/05/18 07:57 Lactic Acid 1.4 mmol/L (0.7-2.1) 09/02/18 08:00 Calcium 8.8 mg/dL (8.4-10.5) 09/05/18 07:57 Phosphorus 3.5 mg/dL (2.5-4.5) 09/02/18 05:40 Magnesium 2.3 mg/dL (1.7-2.2) H 09/02/18 05:40 Iron 39 ug/dL (45-180) L 09/02/18 06:30 TIBC 286 ug/dL (265-497) 09/02/18 06:30 % Saturation 14 % (20-55) L 09/02/18 06:30 Transferrin 220.17 mg/dL (206-381) 09/02/18 07:10 Caroline Transferrin Receptr 1.71 mg/L (0.76-1.76) 09/02/18 07:00 Ferritin 115.0 ng/mL 09/02/18 05:40 Total Bilirubin 0.5 mg/dL (0.2-1.3) 09/05/18 07:57 AST 31 U/L (14-36) 09/05/18 07:57 ALT 36 U/L (7-56) 09/05/18 07:57 Alkaline Phosphatase 72 U/L (38-126) 09/05/18 07:57 Total Creatine Kinase 30 U/L (35-230) L 09/02/18 05:40 C-Reactive Protein 40.60 mg/L (0.0-9.9) H 09/02/18 05:40 Total Protein 6.1 g/dL (5.8-8.3) 09/05/18 07:57 Albumin 3.4 g/dL (3.0-4.8) 09/05/18 07:57 Globulin 2.8 gm/dL 09/05/18 07:57 Albumin/Globulin Ratio 1.2 (1.1-1.8) 09/05/18 07:57 Vitamin B12 269 pg/mL (239-931) 09/02/18 05:40 Folate 8.5 ng/mL 09/02/18 07:10 Procalcitonin 0.05 NG/ML (0.19-0.49) L 09/02/18 07:10 Vancomycin Trough 17.2 ug/mL (5.0-10.0) H* 09/05/18 09:00 Attending/Attestation - Attestation I have personally seen and examined this patient.: Yes I have fully participated in the care of the patient.: Yes I have reviewed all pertinent clinical information, including history, physical exam and plan: Yes Notes (Text): 09/05/18 18:02 72 year old female with past medical history of hypertension and CAD s/p stents who presented with complaint of worsening left leg pain and swelling s/p recent fall. She is on iv antibiotics for LE cellulitis. LE doppler showed fluid collection, possible hematoma from recent fall. MRI was also obtain which showed resolving hematoma vs abscess. ID is following. Will also request surgery consultation to evaluate for possible drainage vs conservative managemen t. If no drainage is planned patient can be transferred to TCU. Chel Ortega MD Hospitalist.
[2018-09-05] MEDS ORDERED: Morphine 2 mg/ml ISec IVP STA (19:59)
--- NOTE | 2018-09-05 20:14 | CP.PCM.CON ---
History of Present Illness - History of Present Illness History of Present Illness: Surgery Consult Note- Dr. Lorenzana Reason for consult: Left lower extremity fluid collection/hematoma 72F pmhx significant for HLD, HTN, CAD s/p stent placement initially presented on 08/25/18 s/p fall 1 week prior off porch stairs while leaving her house. She came to the ED and was discharged after negative imaging at that time. Patient continued to develop pain, swelling, and warmth in her left leg, which also demonstrated abrasions from her recent fall. Patient took percocet for pain. During hospital course patient recieved US which was negative for DVT, MRI showed loculated fluid collection of questionable hematoma or abscess, no osteo. Patient states pain has significantly improved since arrival. Patient is able to move extremities. Denies numbness/tingling down left lower extremity, loss of color in leg. During examination patient has full sensation, leg is warm, and palpable pulses. Patient denies chest pain, shortness of breath, nausea, vomiting, diarrhea, fever, chills, dysuria. Medical Hx:HTN, HLD, CAD s/p stent placement Surgical Hx: Left hip replacement, hysterectomy, left foot bunion surgery Meds: reviewed, as per MAR Allergies: NKDA Social Hx: Former smoker, Social alcohol use, denies illicit drug use Family Hx: DM, HTN, CVA PMD: [place] Review of Systems - Review of Systems All systems: reviewed and no additional remarkable complaints except - Constitutional Constitutional: As Per HPI Past Patient History - Infectious Disease Hx of Infectious Diseases: None - Tetanus Immunizations Tetanus Immunization: Up to Date - Past Social History Smoking Status: Former Smoker - CARDIAC Hx Pacemaker: No - PULMONARY Hx Respiratory Disorders: No Hx Pneumonia: Yes - NEUROLOGICAL Other/Comment: bells palsy 3x's - HEENT Hx HEENT Problems: Yes (reading glasses) - RENAL Hx Kidney Stones: Yes (over 27 yrs ago) - ENDOCRINE/METABOLIC Hx Endocrine Disorders: No - HEMATOLOGICAL/ONCOLOGICAL Hx Blood Transfusions: Yes Hx Blood Transfusion Reaction: No - INTEGUMENTARY Hx Dermatological Problems: No - MUSCULOSKELETAL/RHEUMATOLOGICAL Hx Musculoskeletal Disorders: Yes - GASTROINTESTINAL Hx Gastrointestinal Disorders: No Hx Diverticulitis: Yes - GENITOURINARY/GYNECOLOGICAL Hx Genitourinary Disorders: Yes - PSYCHIATRIC Hx Emotional Abuse: No Hx Physical Abuse: No Hx Substance Use: No - SURGICAL HISTORY Hx Cardiac Catheterization: Yes (STENT X2 2009) Hx Coronary Stent: Yes (x2 2009) Hx Hysterectomy: Yes (ca cervix about 10 yrs ago) Hx Orthopedic Surgery: Yes (R HIP REPLACEMENT 2003) Other/Comment: abd hernia sx, colon polyp removed, bilateral bunyons removed at 12 yrs old, right foot sx for bunyon and callous removal about 2 yrs ago, blader cyst and repair - ANESTHESIA Hx Anesthesia Reactions: No Hx Malignant Hyperthermia: No Meds Home Medications: Home Medication List Medication Instructions Recorded Confirmed Type Furosemide [Lasix] 20 mg IVP DAILY vial 09/05/18 Rx Ondansetron [Zofran Inj] 4 mg IVP Q4H PRN vial 09/05/18 Rx Polyethylene Glycol 3350 [Miralax] 17 gm PO BID packet 09/05/18 Rx Allergies/Adverse Reactions: Allergies Allergy/AdvReac Type Severity Reaction Status Date / Time No Known Allergies Allergy Verified 08/24/18 16:25 - Medications Medications: Current Medications Alendronate Sodium (Fosamax) 70 mg PO MON [facility] Last Admin: 09/05/18 13:35 Dose: 70 mg Aspirin (Ecotrin) 81 mg PO DAILY [facility] Last Admin: 09/05/18 12:31 Dose: 81 mg Atorvastatin Calcium (Lipitor) 10 mg PO DIN [facility] Last Admin: 09/05/18 18:57 Dose: 10 mg Cholecalciferol (Vitamin D) 1,000 intlu PO DAILY [facility] Last Admin: 09/05/18 12:31 Dose: 1,000 intlu Clopidogrel Bisulfate (Plavix) 75 mg PO DAILY [facility] Last Admin: 09/05/18 12:31 Dose: 75 mg Famotidine (Pepcid) 20 mg PO BID [facility] Last Admin: 09/05/18 18:57 Dose: 20 mg Furosemide (Lasix) 20 mg IVP DAILY [facility] Last Admin: 09/05/18 12:31 Dose: 20 mg Hydrochlorothiazide (Microzide) 12.5 mg PO DAILY [facility] Last Admin: 09/05/18 12:31 Dose: 12.5 mg Sodium Chloride (Sodium Chloride 0.9%) 1,000 mls @ 100 mls/hr IV .Q10H [facility] Last Admin: 09/04/18 19:21 Dose: 100 mls/hr Losartan Potassium (Cozaar) 100 mg PO DAILY [facility] Last Admin: 09/05/18 12:49 Dose: 100 mg Multivitamins (Thera Tab) 1 tab PO DAILY [facility] Last Admin: 09/05/18 12:31 Dose: 1 tab Ondansetron HCl (Zofran Inj) 4 mg IVP Q4H PRN PRN Reason: Nausea/Vomiting Polyethylene Glycol (Miralax) 17 gm PO BID [facility] Last Admin: 09/05/18 18:57 Dose: 17 gm Primidone (Mysoline) 50 mg PO HS [facility] Last Admin: 09/04/18 22:10 Dose: 50 mg Topiramate (Topamax) 50 mg PO HS [facility]; Protocol Last Admin: 09/04/18 22:10 Dose: 50 mg Physical Exam - Constitutional Appears: Non-toxic, No Acute Distress - Head Exam Head Exam: ATRAUMATIC - Eye Exam Eye Exam: EOMI. absent: Scleral icterus - ENT Exam ENT Exam: Mucous Membranes Moist - Respiratory Exam Respiratory Exam: NORMAL BREATHING PATTERN. absent: Accessory Muscle Use, Respiratory Distress - Cardiovascular Exam Cardiovascular Exam: REGULAR RHYTHM, +S1, +S2. absent: Bradycardia, Tachycardia - GI/Abdominal Exam GI & Abdominal Exam: Soft. absent: Diminished Bowel Sounds, Distended, Firm, Guarding - Extremities Exam Additional comments: Left lower extremity warm multiple superficial abrasion healing well erythematous mid-distal tibia and left foot non-pitting edema +2 palpable pulses - Neurological Exam Neurological exam: Alert, Oriented x3 - Psychiatric Exam Psychiatric exam: Normal Affect - Skin Skin Exam: Intact, Warm Results - Vital Signs Recent Vital Signs: Last Vital Signs Temp 98.5 F 09/05/18 14:00 Pulse 53 L 09/05/18 14:00 Resp 20 09/05/18 14:00 BP 119/61 09/05/18 14:00 Pulse Ox 98 09/05/18 14:00 - Labs Result Diagrams: 09/05/18 07:57 09/05/18 07:57 Labs: Laboratory Results - last 24 hr 09/02/18 09/05/18 09/05/18 07:00 07:57 07:57 WBC 6.4 RBC 3.07 L Hgb 9.1 L Hct 27.2 L MCV 88.6 MCH 29.6 MCHC 33.5 RDW 13.1 Plt Count 216 MPV 8.1 Gran % 66.2 Lymph % (Auto) 17.0 L [place] % (Auto) 14.2 H Eos % (Auto) 2.3 Baso % (Auto) 0.3 Gran # 4.26 Lymph # (Auto) 1.1 L [place] # (Auto) 0.9 H Eos # (Auto) 0.2 Baso # (Auto) 0.02 Sodium 140 Potassium 4.1 Chloride 108 H Carbon Dioxide 29 Anion Gap 7 L BUN 19 Creatinine 0.8 Est GFR ( Amer) > 60 Est GFR (Non-Af Amer) > 60 Random Glucose 103 Calcium 8.8 Caroline Transferrin Receptr 1.71 Total Bilirubin 0.5 AST 31 ALT 36 Alkaline Phosphatase 72 Total Protein 6.1 Albumin 3.4 Globulin 2.8 Albumin/Globulin Ratio 1.2 Vancomycin Trough 09/05/18 09:00 WBC RBC Hgb Hct MCV MCH MCHC RDW Plt Count MPV Gran % Lymph % (Auto) [place] % (Auto) Eos % (Auto) Baso % (Auto) Gran # Lymph # (Auto) [place] # (Auto) Eos # (Auto) Baso # (Auto) Sodium Potassium Chloride Carbon Dioxide Anion Gap BUN Creatinine Est GFR ( Amer) Est GFR (Non-Af Amer) Random Glucose Calcium Caroline Transferrin Receptr Total Bilirubin AST ALT Alkaline Phosphatase Total Protein Albumin Globulin Albumin/Globulin Ratio Vancomycin Trough 17.2 H* Assessment & Plan - Assessment and Plan (Free Text) Assessment: 72F s/p fall w/ LLE cellulitis and Hematoma Patient states she does not want any surgical intervention at this time Plan: - continue with antibiotics - warm compresses - encourage physical therapy - no acute surgical intervention at this time - monitor H/H - further recs per Dr. Lorenzana Surgical attending [facility] PGY2
[2018-09-05 21:22] VITALS: TEMP 97.8; O2SAT 97
[2018-09-06] MEDS ORDERED: Morphine 2 mg/ml ISec IVP STA (03:28)
[2018-09-06 09:05] VITALS: BP 109/57; PULSE 50; RESP 20
--- NOTE | 2018-09-06 10:55 | CP.PCM.DIS ---
<Maday Botello L - Last Filed: 09/06/18 10:56> Provider - Provider Date of Admission: 09/02/18 10:23 Attending physician: Chel Ortega MD Primary care physician: Scooter Rogers MD Consults: 09/01/18 22:21 Infectious Disease Consult Routine Comment: Consulting Provider: Eagle Fernando Consulting Physician: Eagle Fernando Reason for Consult: LLE cellulitis 09/02/18 15:50 Evaluation for TRCU Routine Comment: Physician Instructions: Reason For Exam: please eval. 09/05/18 18:00 Consult [Physician Consult] Routine Comment: Consulting Provider: Nilo Lorenzana Consulting Physician: Nilo Lorenzana Reason for Consult: LE fluid collection/hematoma Time Spent in preparation of Discharge (in minutes): 35 Diagnosis - Discharge Diagnosis (1) Hematoma of leg Status: Acute Hospital Course - Lab Results Lab Results: Micro Results 09/01/18 19:55 Blood Blood Culture - Preliminary NO GROWTH AFTER 4 DAYS 09/01/18 19:30 Blood Blood Culture - Preliminary NO GROWTH AFTER 4 DAYS Most Recent Lab Values WBC 6.4 10^3/uL (4.5-11.0) 09/05/18 07:57 RBC 3.07 10^6/uL (3.5-6.1) L 09/05/18 07:57 Hgb 9.1 g/dL (12.0-16.0) L 09/05/18 07:57 Hct 27.2 % (36.0-48.0) L 09/05/18 07:57 MCV 88.6 fl (80.0-105.0) 09/05/18 07:57 MCH 29.6 pg (25.0-35.0) 09/05/18 07:57 MCHC 33.5 g/dl (31.0-37.0) 09/05/18 07:57 RDW 13.1 % (11.5-14.5) 09/05/18 07:57 Plt Count 216 10^3/uL (120.0-450.0) 09/05/18 07:57 MPV 8.1 fl (7.0-11.0) 09/05/18 07:57 Gran % 66.2 % (50.0-68.0) 09/05/18 07:57 Lymph % (Auto) 17.0 % (22.0-35.0) L 09/05/18 07:57 [place] % (Auto) 14.2 % (1.0-6.0) H 09/05/18 07:57 Eos % (Auto) 2.3 % (1.5-5.0) 09/05/18 07:57 Baso % (Auto) 0.3 % (0.0-3.0) 09/05/18 07:57 Gran # 4.26 (1.4-6.5) 09/05/18 07:57 Lymph # (Auto) 1.1 (1.2-3.4) L 09/05/18 07:57 [place] # (Auto) 0.9 (0.1-0.6) H 09/05/18 07:57 Eos # (Auto) 0.2 (0.0-0.7) 09/05/18 07:57 Baso # (Auto) 0.02 K/mm3 (0.0-2.0) 09/05/18 07:57 Neutrophils % (Manual) 91 % (50.0-70.0) H 09/03/18 07:30 Lymphocytes % (Manual) 2 % (22.0-35.0) L 09/03/18 07:30 Monocytes % (Manual) 7 % (1.0-6.0) H 09/03/18 07:30 Toxic Granulation 1+ 09/03/18 07:30 Platelet Evaluation Normal (NORMAL) 09/03/18 07:30 Hypochromasia 1+ 09/03/18 07:30 Rouleaux 2+ 09/03/18 07:30 ESR 37 mm/hr (0.0-20.0) H 09/02/18 05:40 Retic Count 3.15 % (0.5-1.5) H 09/02/18 06:30 Sodium 140 mmol/L (132-148) 09/05/18 07:57 Potassium 4.1 mmol/L (3.6-5.0) 09/05/18 07:57 Chloride 108 mmol/L (98-107) H 09/05/18 07:57 Carbon Dioxide 29 mmol/L (21-33) 09/05/18 07:57 Anion Gap 7 (10-20) L 09/05/18 07:57 BUN 19 mg/dL (7-21) 09/05/18 07:57 Creatinine 0.8 mg/dl (0.7-1.2) 09/05/18 07:57 Est GFR ( Amer) > 60 09/05/18 07:57 Est GFR (Non-Af Amer) > 60 09/05/18 07:57 Random Glucose 103 mg/dL (70-110) 09/05/18 07:57 Lactic Acid 1.4 mmol/L (0.7-2.1) 09/02/18 08:00 Calcium 8.8 mg/dL (8.4-10.5) 09/05/18 07:57 Phosphorus 3.5 mg/dL (2.5-4.5) 09/02/18 05:40 Magnesium 2.3 mg/dL (1.7-2.2) H 09/02/18 05:40 Iron 39 ug/dL (45-180) L 09/02/18 06:30 TIBC 286 ug/dL (265-497) 09/02/18 06:30 % Saturation 14 % (20-55) L 09/02/18 06:30 Transferrin 220.17 mg/dL (206-381) 09/02/18 07:10 Caroline Transferrin Receptr 1.71 mg/L (0.76-1.76) 09/02/18 07:00 Ferritin 115.0 ng/mL 09/02/18 05:40 Total Bilirubin 0.5 mg/dL (0.2-1.3) 09/05/18 07:57 AST 31 U/L (14-36) 09/05/18 07:57 ALT 36 U/L (7-56) 09/05/18 07:57 Alkaline Phosphatase 72 U/L (38-126) 09/05/18 07:57 Total Creatine Kinase 30 U/L (35-230) L 09/02/18 05:40 C-Reactive Protein 40.60 mg/L (0.0-9.9) H 09/02/18 05:40 Total Protein 6.1 g/dL (5.8-8.3) 09/05/18 07:57 Albumin 3.4 g/dL (3.0-4.8) 09/05/18 07:57 Globulin 2.8 gm/dL 09/05/18 07:57 Albumin/Globulin Ratio 1.2 (1.1-1.8) 09/05/18 07:57 Vitamin B12 269 pg/mL (239-931) 09/02/18 05:40 Folate 8.5 ng/mL 09/02/18 07:10 Procalcitonin 0.05 NG/ML (0.19-0.49) L 09/02/18 07:10 Vancomycin Trough 17.2 ug/mL (5.0-10.0) H* 09/05/18 09:00 - Hospital Course Hospital Course: On admission: 72 yo F with pmhx of HTN, HLD, CAD s/p 2 stents last in 2009, who presents to the ED for worsening left lower leg pain and swelling. Pain is 9/10, constant, burning/pressure in nature, aggravated by ambulation/sitting for long period of time, alleviated by leg elevation, extends from the knee to the foot. [place] [facility] of [place] s/p mechanical fall. Imaging studies, lab were normal and patient discharged on percocet prn and bacitracin for her lower limb superficial wounds. Patient reports progressive symptoms of pressure and pain in the left leg. She denied associated fever, chills, wound discharge, muscle weakness, loss of sensation. Patient was not able to see her PMD Dr Rogers as his office was closed for the holiday. She also denied CP, SOB, palpitations, headache, dizziness, changes in bowel movement, urinary symptoms. She has been using walker with difficulty ambulating due to pain and pressure. During hospital course: Patient was started on vancomycin due to suspicion for cellulitis. Ultrasound of LLE was negative for DVT. ID was consulted. MRI was done which showed loculated fluid collection possible resolving hematoma or abscess, no evidence of osteomyelitis. Patient was evaluated by surgical team for possible drainage of hematoma, however patient refused surgical intervention. Patient was optimized medically and discharged to TCU for further physical therapy. Please see EMR for full summary. - Date & Time of H&P Date of H&P: 09/02/17 Time of H&P: 15:33 Discharge Exam - Additional Findings Additional findings: - Constitutional Appears: No Acute Distress, Chronically Ill - Head Exam Head Exam: ATRAUMATIC, NORMOCEPHALIC - Eye Exam Eye Exam: EOMI, Normal appearance - ENT Exam ENT Exam: Mucous Membranes Dry - Neck Exam Neck Exam: Normal Inspection - Respiratory Exam Respiratory Exam: Clear to Ausculation Bilateral, NORMAL BREATHING PATTERN. absent: Accessory Muscle Use - Cardiovascular Exam Cardiovascular Exam: RRR, +S1, +S2 - GI/Abdominal Exam GI & Abdominal Exam: Soft, Normal Bowel Sounds. absent: Guarding, Rebound - Extremities Exam Extremities Exam: absent: Calf Tenderness Additional comments: left leg has multiple lesions that are healing with granulation tissue (improved); no gross bleeding or drainage appreciated LLE swelling improved - Neurological Exam Neurological Exam: Alert, Awake, Oriented x3 - Skin Skin Exam: Dry, Intact, Normal Color, Warm Discharge Plan - Follow Up Plan Condition: STABLE Disposition: REHAB FACILITY/REHAB UNIT Additional Instructions: Patient discharged to TCU Referrals: Scooter Rogers MD [Primary Care Provider] - <Chel Ortega - Last Filed: 09/06/18 12:09> Provider - Provider Date of Admission: 09/02/18 10:23 Attending physician: Chel Ortega MD Primary care physician: Scooter Rogers MD Consults: 09/01/18 22:21 Infectious Disease Consult Routine Comment: Consulting Provider: Eagle Fernando Consulting Physician: Eagle Fernando Reason for Consult: LLE cellulitis 09/02/18 15:50 Evaluation for TRCU Routine Comment: Physician Instructions: Reason For Exam: please eval. 09/05/18 18:00 Consult [Physician Consult] Routine Comment: Consulting Provider: Nilo Lorenzana Consulting Physician: Nilo Lorenzana Reason for Consult: LE fluid collection/hematoma Hospital Course - Lab Results Lab Results: Micro Results 09/01/18 19:55 Blood Blood Culture - Preliminary NO GROWTH AFTER 4 DAYS 09/01/18 19:30 Blood Blood Culture - Preliminary NO GROWTH AFTER 4 DAYS Most Recent Lab Values WBC 6.4 10^3/uL (4.5-11.0) 09/05/18 07:57 RBC 3.07 10^6/uL (3.5-6.1) L 09/05/18 07:57 Hgb 9.1 g/dL (12.0-16.0) L 09/05/18 07:57 Hct 27.2 % (36.0-48.0) L 09/05/18 07:57 MCV 88.6 fl (80.0-105.0) 09/05/18 07:57 MCH 29.6 pg (25.0-35.0) 09/05/18 07:57 MCHC 33.5 g/dl (31.0-37.0) 09/05/18 07:57 RDW 13.1 % (11.5-14.5) 09/05/18 07:57 Plt Count 216 10^3/uL (120.0-450.0) 09/05/18 07:57 MPV 8.1 fl (7.0-11.0) 09/05/18 07:57 Gran % 66.2 % (50.0-68.0) 09/05/18 07:57 Lymph % (Auto) 17.0 % (22.0-35.0) L 09/05/18 07:57 [place] % (Auto) 14.2 % (1.0-6.0) H 09/05/18 07:57 Eos % (Auto) 2.3 % (1.5-5.0) 09/05/18 07:57 Baso % (Auto) 0.3 % (0.0-3.0) 09/05/18 07:57 Gran # 4.26 (1.4-6.5) 09/05/18 07:57 Lymph # (Auto) 1.1 (1.2-3.4) L 09/05/18 07:57 [place] # (Auto) 0.9 (0.1-0.6) H 09/05/18 07:57 Eos # (Auto) 0.2 (0.0-0.7) 09/05/18 07:57 Baso # (Auto) 0.02 K/mm3 (0.0-2.0) 09/05/18 07:57 Neutrophils % (Manual) 91 % (50.0-70.0) H 09/03/18 07:30 Lymphocytes % (Manual) 2 % (22.0-35.0) L 09/03/18 07:30 Monocytes % (Manual) 7 % (1.0-6.0) H 09/03/18 07:30 Toxic Granulation 1+ 09/03/18 07:30 Platelet Evaluation Normal (NORMAL) 09/03/18 07:30 Hypochromasia 1+ 09/03/18 07:30 Rouleaux 2+ 09/03/18 07:30 ESR 37 mm/hr (0.0-20.0) H 09/02/18 05:40 Retic Count 3.15 % (0.5-1.5) H 09/02/18 06:30 Sodium 140 mmol/L (132-148) 09/05/18 07:57 Potassium 4.1 mmol/L (3.6-5.0) 09/05/18 07:57 Chloride 108 mmol/L (98-107) H 09/05/18 07:57 Carbon Dioxide 29 mmol/L (21-33) 09/05/18 07:57 Anion Gap 7 (10-20) L 09/05/18 07:57 BUN 19 mg/dL (7-21) 09/05/18 07:57 Creatinine 0.8 mg/dl (0.7-1.2) 09/05/18 07:57 Est GFR ( Amer) > 60 09/05/18 07:57 Est GFR (Non-Af Amer) > 60 09/05/18 07:57 Random Glucose 103 mg/dL (70-110) 09/05/18 07:57 Lactic Acid 1.4 mmol/L (0.7-2.1) 09/02/18 08:00 Calcium 8.8 mg/dL (8.4-10.5) 09/05/18 07:57 Phosphorus 3.5 mg/dL (2.5-4.5) 09/02/18 05:40 Magnesium 2.3 mg/dL (1.7-2.2) H 09/02/18 05:40 Iron 39 ug/dL (45-180) L 09/02/18 06:30 TIBC 286 ug/dL (265-497) 09/02/18 06:30 % Saturation 14 % (20-55) L 09/02/18 06:30 Transferrin 220.17 mg/dL (206-381) 09/02/18 07:10 Caroline Transferrin Receptr 1.71 mg/L (0.76-1.76) 09/02/18 07:00 Ferritin 115.0 ng/mL 09/02/18 05:40 Total Bilirubin 0.5 mg/dL (0.2-1.3) 09/05/18 07:57 AST 31 U/L (14-36) 09/05/18 07:57 ALT 36 U/L (7-56) 09/05/18 07:57 Alkaline Phosphatase 72 U/L (38-126) 09/05/18 07:57 Total Creatine Kinase 30 U/L (35-230) L 09/02/18 05:40 C-Reactive Protein 40.60 mg/L (0.0-9.9) H 09/02/18 05:40 Total Protein 6.1 g/dL (5.8-8.3) 09/05/18 07:57 Albumin 3.4 g/dL (3.0-4.8) 09/05/18 07:57 Globulin 2.8 gm/dL 09/05/18 07:57 Albumin/Globulin Ratio 1.2 (1.1-1.8) 09/05/18 07:57 Vitamin B12 269 pg/mL (239-931) 09/02/18 05:40 Folate 8.5 ng/mL 09/02/18 07:10 Procalcitonin 0.05 NG/ML (0.19-0.49) L 09/02/18 07:10 Vancomycin Trough 17.2 ug/mL (5.0-10.0) H* 09/05/18 09:00 Attending/Attestation - Attestation I have personally seen and examined this patient.: Yes I have fully participated in the care of the patient.: Yes I have reviewed all pertinent clinical information, including history, physical exam and plan: Yes Notes (Text): 09/06/18 12:08 72 year old female with past medical history of hypertension and CAD s/p stents who presented with complaint of worsening left leg pain and swelling s/p recent fall. She is on iv antibiotics for LE cellulitis. LE doppler showed fluid collection, possible hematoma from recent fall. MRI also showed resolving hemat yoli vs abscess. Patient was on antibiotics and ID was following. Surgery evaluation was also appreciated and no surgical intervention is planned. Patient will be transferred to TCU today. Chel Ortega MD Hospitalist.
[2018-09-06] MEDS: POLYETHYLENE GLYCOL 3350 17 GM/Dose PACKET PO SCH (11:00)
[2018-09-06] MEDS: Cholecalciferol 1,000 INTLU TAB PO SCH (11:00)
[2018-09-06] MEDS: Multivitamin Therapeutic Tab PO SCH (11:00)
[2018-09-06] MEDS ORDERED: Vancomycin 1gm in NS 250ml 1 GM/250 ML BAG IVPB SCH (13:15)
--- NOTE | 2018-09-06 16:38 | PN ---
DATE: 09/06/2018 SUBJECTIVE: The patient is in bed, in no acute distress, nontoxic. PHYSICAL EXAMINATION: VITAL SIGNS: Temperature is 98, blood pressure is 109/57, respiratory rate of 20. HEENT: Unremarkable. NECK: Supple. LUNGS: Have decreased breath sounds. HEART: Normal S1 and S2. ABDOMEN: Soft, nontender. LABORATORY EXAMINATION: Reveals a white count of 6.4, hemoglobin of 9, platelets of 216. Chemistries reveals a BUN of 19, creatinine of 0.8. Procalcitonin is noted and toxicology is reviewed. Vanco trough of 17.2. Blood cultures are no growth. ASSESSMENT AND PLAN: A 72-year-old female was seen earlier this morning with a left lower extremity on vancomycin day #5 with MRI consistent with a fluid collection or hematoma. Surgical evaluation is . Dr. Lorenzana's note is reviewed. Eagle Fernando MD
== END 2018-09-06 13:43 | disposition home or self-care (01) | DRG 605 ==
LOC: ED 18:19 → ERH 22:05 → 5RSO 09-02 00:11 → OBSVTOIN 09-02 10:23
PROVIDERS: ADMIT Internal Medicine; ATTEND Internal Medicine
DX: S80.12XA Contusion of left lower leg, initial encounter (principal); L03.116 Cellulitis of left lower limb; E78.5 Hyperlipidemia, unspecified; I10 Essential (primary) hypertension; I25.10 Atherosclerotic heart disease of native coronary artery without angina pectoris; K59.00 Constipation, unspecified; Z79.02 Long term (current) use of antithrombotics/antiplatelets; Z83.3 Family history of diabetes mellitus; Z82.3 Family history of stroke; Z82.49 Family history of ischemic heart disease and other diseases of the circulatory system; Z86.010 Personal history of colon polyps; Z87.01 Personal history of pneumonia (recurrent); Z87.442 Personal history of urinary calculi; Z87.891 Personal history of nicotine dependence; Z90.710 Acquired absence of both cervix and uterus; Z95.5 Presence of coronary angioplasty implant and graft; Z96.643 Presence of artificial hip joint, bilateral; Z86.69 Personal history of other diseases of the nervous system and sense organs; Z91.81 History of falling

== ENCOUNTER 2018-09-06 13:41 | Inpatient (IN) | payer BC, OTHER ==
[2018-09-06] MEDS ORDERED: Influenza Vaccine 60 mcg/0.5 mL SYR (4YR UP) IM ONE (16:45)
[2018-09-06] MEDS ORDERED: Pneumococcal 23-Valent Vaccine IM ONE (16:45)
[2018-09-06] MEDS: POLYETHYLENE GLYCOL 3350 17 GM/Dose PACKET PO SCH (17:32)
[2018-09-06] MEDS: Vancomycin 1gm in NS 250ml 1 GM/250 ML BAG IVPB SCH (17:33)
[2018-09-06] MEDS: Oxycodone/Acetaminophen 5/325 mg Tab PO PRN (20:01)
[2018-09-07] MEDS: Vancomycin 1gm in NS 250ml 1 GM/250 ML BAG IVPB SCH ×2 (06:18→17:21)
[2018-09-07 06:51] LABS: ALB/GLOB RATIO 1.3 (1.1-1.8); ALT/SGPT 47 U/L (7-56); AST/SGOT 37 U/L (14-36); BLOOD UREA NITROGEN 15 mg/dL (7-21); CALCIUM 9.4 mg/dL (8.4-10.5); GFR NON-AFRICAN AMERICAN > 60
[2018-09-07 07:15] LABS: BASO # 0.04 K/mm3 (0.0-2.0); BASO % 0.5 % (0.0-3.0); EOS # 0.2 (0.0-0.7); EOS % 2.6 % (1.5-5.0); GRAN # 4.83 (1.4-6.5); GRAN % 62.2 % (50.0-68.0); HEMOGLOBIN 10.4 g/dL (12.0-16.0); LYMPH # 1.8 (1.2-3.4); LYMPH % 22.8 % (22.0-35.0); MEAN CELL VOLUME 87.4 fl (80.0-105.0); MEAN CORPUSCULAR HEMOGLOBIN 29.1 pg (25.0-35.0); MEAN CORPUSCULAR HGB CONC 33.2 g/dl (31.0-37.0); MEAN PLATELET VOLUME 8.6 fl (7.0-11.0); MONO # 0.9 (0.1-0.6); MONO % 11.9 % (1.0-6.0); RBC 3.58 10^6/uL (3.5-6.1); RED CELL DISTRIBUTION WIDTH 12.9 % (11.5-14.5); WHITE BLOOD COUNT 7.8 10^3/uL (4.5-11.0)
[2018-09-07] MEDS: Oxycodone/Acetaminophen 5/325 mg Tab PO PRN ×2 (09:34→21:00)
[2018-09-07] MEDS ORDERED: Non Formulary Medication (Multivitamin [Multivitamins] 1 EACH) PO SCH (10:00)
[2018-09-07] MEDS ORDERED: Non Formulary Medication (Cholecalciferol (Vitamin D3) [Vitamin D3] 1,000 UNIT) PO SCH (10:00)
[2018-09-07] MEDS: POLYETHYLENE GLYCOL 3350 17 GM/Dose PACKET PO SCH ×2 (10:35→17:20)
[2018-09-07] MEDS: Cholecalciferol 1,000 INTLU TAB PO SCH (10:38)
[2018-09-07] MEDS: Multivitamin Therapeutic Tab PO SCH (10:38)
--- NOTE | 2018-09-07 14:53 | CP.PCM.CON ---
<Mariangel Daniels - Last Filed: 09/07/18 14:47> History of Present Illness - History of Present Illness History of Present Illness: Podiatry consult note for Dr. Dixon, 72F pmhx significant for HLD, HTN, CAD s/p stent placement initially presented on 08/25/18 s/p fall 2 week prior off porch stairs while leaving her house. She came to the ED and was discharged after negative imaging at that time. Patient denies any pain to the foot. Patient states she has calluses on the bottom of her foot that she regularly sees a lacing string cutter for. Patient denies chest pain, shortness of breath, nausea, vomiting, diarrhea, fever, chills, dysuria. Medical Hx:HTN, HLD, CAD s/p stent placement Surgical Hx: Left hip replacement, hysterectomy, left foot bunion surgery Meds: reviewed, as per MAR Allergies: NKDA Social Hx: Former smoker, Social alcohol use, denies illicit drug use Family Hx: DM, HTN, CVA Past Patient History - Infectious Disease Hx of Infectious Diseases: None - Tetanus Immunizations Tetanus Immunization: Up to Date - Past Social History Smoking Status: Former Smoker - CARDIAC Hx Cardiac Disorders: Yes (2 stents) Hx Hypercholesterolemia: Yes Hx Hypertension: Yes - PULMONARY Hx Respiratory Disorders: No Hx Pneumonia: Yes - NEUROLOGICAL Other/Comment: bells palsy 3x's - HEENT Hx HEENT Problems: Yes (reading glasses) - RENAL Hx Kidney Stones: Yes (over 27 yrs ago) - ENDOCRINE/METABOLIC Hx Endocrine Disorders: No - HEMATOLOGICAL/ONCOLOGICAL Hx Blood Transfusions: Yes Hx Blood Transfusion Reaction: No - INTEGUMENTARY Hx Dermatological Problems: No - MUSCULOSKELETAL/RHEUMATOLOGICAL Hx Falls: Yes - GASTROINTESTINAL Hx Gastrointestinal Disorders: Yes (CONSTIPATION,ABDOMINAL HERNIA,COLON POLYP,DIVERTICULITIS,) - GENITOURINARY/GYNECOLOGICAL Hx Genitourinary Disorders: No Hx Reproductive Disorders: Yes (C SECTION X 1, CA OF CERVIX) - PSYCHIATRIC Hx Emotional Abuse: No Hx Physical Abuse: No Hx Substance Use: No - SURGICAL HISTORY Hx Cardiac Catheterization: Yes (STENT X2 2009) Hx Coronary Stent: Yes (x2 2009) Hx Hysterectomy: Yes (ca cervix about 10 yrs ago) Hx Orthopedic Surgery: Yes (R HIP REPLACEMENT 2003) Other/Comment: abd hernia sx, colon polyp removed, bilateral bunyons removed at 12 yrs old, right foot sx for bunyon and callous removal about 2 yrs ago, blader cyst and repair - ANESTHESIA Hx Anesthesia Reactions: No Hx Malignant Hyperthermia: No Meds Allergies/Adverse Reactions: Allergies Allergy/AdvReac Type Severity Reaction Status Date / Time No Known Allergies Allergy Verified 09/06/18 15:32 - Medications Medications: Current Medications Alendronate Sodium (Fosamax) 70 mg PO MON [facility]; Protocol Aspirin (Ecotrin) 81 mg PO 0800 [facility]; Protocol Last Admin: 09/07/18 08:37 Dose: 81 mg Atorvastatin Calcium (Lipitor) 10 mg PO DIN [facility] Last Admin: 09/06/18 17:32 Dose: 10 mg Cholecalciferol (Vitamin D) 1,000 intlu PO DAILY [facility] Last Admin: 09/07/18 10:38 Dose: 1,000 intlu Clopidogrel Bisulfate (Plavix) 75 mg PO DAILY [facility]; Protocol Last Admin: 09/07/18 10:37 Dose: 75 mg Docusate Sodium (Colace) 100 mg PO BID PRN; Protocol PRN Reason: Constipation Famotidine (Pepcid) 20 mg PO 1000,2200 [facility] Last Admin: 09/07/18 10:35 Dose: 20 mg Furosemide (Lasix) 20 mg IVP 0630 [facility]; Protocol Last Admin: 09/07/18 06:16 Dose: 20 mg Hydrochlorothiazide (Microzide) 12.5 mg PO 0800 [facility]; Protocol Last Admin: 09/07/18 08:37 Dose: 12.5 mg Vancomycin HCl (Vancomycin 1gm) 1 gm in 250 mls @ 167 mls/hr IVPB 0600,1800 [facility]; Protocol Stop: 09/11/18 07:30 Last Admin: 09/07/18 06:18 Dose: 167 mls/hr Losartan Potassium (Cozaar) 100 mg PO DAILY [facility]; Protocol Last Admin: 09/07/18 10:32 Dose: 100 mg Multivitamins (Thera Tab) 1 tab PO DAILY [facility] Last Admin: 09/07/18 10:38 Dose: 1 tab Ondansetron HCl (Zofran Inj) 4 mg IVP Q4H PRN; Protocol PRN Reason: Nausea/Vomiting Oxycodone/Acetaminophen (Percocet 5/325 Mg Tab) 1 tab PO Q6H PRN PRN Reason: Pain, severe (8-10) Stop: 09/09/18 19:10 Last Admin: 09/07/18 09:34 Dose: 1 tab Polyethylene Glycol (Miralax) 17 gm PO BID [facility]; Protocol Last Admin: 09/07/18 10:35 Dose: Not Given Primidone (Mysoline) 50 mg PO HS [facility]; Protocol Last Admin: 09/06/18 21:40 Dose: 50 mg Topiramate (Topamax) 50 mg PO HS [facility]; Protocol Last Admin: 09/06/18 21:44 Dose: 50 mg Physical Exam - Constitutional Appears: Well, Non-toxic, No Acute Distress - Head Exam Head Exam: ATRAUMATIC, NORMOCEPHALIC - Eye Exam Eye Exam: Normal appearance Pupil Exam: NORMAL ACCOMODATION - ENT Exam ENT Exam: Mucous Membranes Moist - Neck Exam Neck exam: Positive for: Normal Inspection - Respiratory Exam Respiratory Exam: NORMAL BREATHING PATTERN - Extremities Exam Additional comments: Bilateral lower extremity exam: vascular: DP/PT nonpalpable secondary to swelling on the left foot, erythema and ecchymosis noted to the dorsal and posterior aspect of the left foot, CFT <3 secs x 10, TG warm to cool derm: no open lesions, scab noted on the dorsal aspect of the left foot, ecchymosis noted to the posterior, medial and lateral aspect of the left rearfoot, multiple scabs noted to the anterior aspect of the leg b/l, no malodor, no purulent drainage ortho: pain on palpation to the dorsal aspect of the left foot, pain with ROM of the left ankle and foot, no pain to the right foot and ankle neuro: protective sensation intact via ipswich 4/4 b/l Results - Vital Signs Recent Vital Signs: Last Vital Signs Temp 97.5 F L 09/06/18 16:26 Pulse 64 09/07/18 11:56 Resp 16 09/06/18 16:26 BP 124/65 09/07/18 11:56 Pulse Ox 95 09/07/18 11:56 - Labs Result Diagrams: 09/07/18 06:15 09/07/18 06:15 Labs: Laboratory Results - last 24 hr 09/07/18 09/07/18 06:15 06:15 WBC 7.8 D RBC 3.58 Hgb 10.4 L Hct 31.3 L MCV 87.4 MCH 29.1 MCHC 33.2 RDW 12.9 Plt Count 295 MPV 8.6 Gran % 62.2 Lymph % (Auto) 22.8 [place] % (Auto) 11.9 H Eos % (Auto) 2.6 Baso % (Auto) 0.5 Gran # 4.83 Lymph # (Auto) 1.8 [place] # (Auto) 0.9 H Eos # (Auto) 0.2 Baso # (Auto) 0.04 Sodium 140 Potassium 3.9 Chloride 102 Carbon Dioxide 31 Anion Gap 11 BUN 15 Creatinine 0.8 Est GFR ( Amer) > 60 Est GFR (Non-Af Amer) > 60 Random Glucose 104 Calcium 9.4 Phosphorus 4.7 H Magnesium 2.3 H Total Bilirubin 0.8 AST 37 H ALT 47 Alkaline Phosphatase 92 Total Protein 7.0 Albumin 4.0 Globulin 3.0 Albumin/Globulin Ratio 1.3 Assessment & Plan - Assessment and Plan (Free Text) Assessment: 72 yo female seen 2 weeks s/p fall, left foot ecchymosis and cellulitis Plan: Patient seen and evaluated Chart, labs and vitals reviewed and discussed in detail with the attending, Dr dixon left foot x-rays ordered calluses debrided with a #15 blade, no complications No dressing needed to the lower extremity at this time Podiatry will continue to follow the patient thank you for the consult. <Tiffanie Dixon - Last Filed: 09/10/18 14:16> Meds - Medications Medications: Current Medications Alendronate Sodium (Fosamax) 70 mg PO MON [facility]; Protocol Aspirin (Ecotrin) 81 mg PO 0800 [facility]; Protocol Last Admin: 09/10/18 08:20 Dose: 81 mg Atorvastatin Calcium (Lipitor) 10 mg PO DIN [facility] Last Admin: 09/09/18 17:38 Dose: 10 mg Cholecalciferol (Vitamin D) 1,000 intlu PO DAILY [facility] Last Admin: 09/10/18 10:24 Dose: 1,000 intlu Clopidogrel Bisulfate (Plavix) 75 mg PO DAILY [facility]; Protocol Last Admin: 09/10/18 10:24 Dose: 75 mg Docusate Sodium (Colace) 100 mg PO BID PRN; Protocol PRN Reason: Constipation Famotidine (Pepcid) 20 mg PO 1000,2200 [facility] Last Admin: 09/10/18 10:23 Dose: 20 mg Furosemide (Lasix) 40 mg PO DAILY [facility] Last Admin: 09/10/18 09:48 Dose: Not Given Hydrochlorothiazide (Microzide) 12.5 mg PO 0800 [facility]; Protocol Last Admin: 09/10/18 08:20 Dose: 12.5 mg Hydrocortisone (Cortizone 0.5%) 1 ea TOP BID PRN PRN Reason: Itching / Pruritus Losartan Potassium (Cozaar) 100 mg PO DAILY [facility]; Protocol Last Admin: 09/10/18 09:49 Dose: Not Given Multivitamins (Thera Tab) 1 tab PO DAILY [facility] Last Admin: 09/10/18 10:24 Dose: 1 tab Ondansetron HCl (Zofran Inj) 4 mg IVP Q4H PRN; Protocol PRN Reason: Nausea/Vomiting Oxycodone/Acetaminophen (Percocet 5/325 Mg Tab) 1 tab PO Q6H PRN PRN Reason: Pain, severe (8-10) Stop: 09/13/18 11:07 Last Admin: 09/10/18 11:12 Dose: 1 tab Polyethylene Glycol (Miralax) 17 gm PO BID [facility]; Protocol Last Admin: 09/10/18 10:23 Dose: 17 gm Primidone (Mysoline) 50 mg PO HS [facility]; Protocol Last Admin: 09/09/18 21:59 Dose: 50 mg Topiramate (Topamax) 50 mg PO HS [facility]; Protocol Last Admin: 09/09/18 21:59 Dose: 50 mg Results - Vital Signs Recent Vital Signs: Last Vital Signs Temp 97.8 F 09/10/18 10:00 Pulse 59 L 09/10/18 10:00 Resp 20 09/10/18 10:00 BP 99/59 L 09/10/18 10:00 Pulse Ox 96 09/10/18 10:00 - Labs Result Diagrams: 09/07/18 06:15 09/07/18 06:15 Attending/Attestation - Attestation I have personally seen and examined this patient.: Yes I have fully participated in the care of the patient.: Yes I have reviewed all pertinent clinical information: Yes
--- NOTE | 2018-09-07 15:23 | CP.PCM.HP ---
<Amanda Morton - Last Filed: 09/07/18 15:20> History of Present Illness - History of Present Illness History of Present Illness: Amanda Morton, PGY1 Hospital H&P This is a 72 year old female with PMH of HTN, HLD, CAD s/p 2 stents last in 2009, who presented to the ED on 09/02/18 for worsening left lower leg pain and swelling. Pain was described as 9/10, constant, burning/pressure in nature, aggravated by ambulation/sitting for long period of time, alleviated by leg elevation, extends from the knee to the foot. Patient was recently discharged from [facility] with one day of hospital admission s/p mechanical fall. Imaging studies, lab were normal and patient discharged on percocet prn and bacitracin for her lower limb superficial wounds. Patient reports progressive symptoms of pressure and pain in the left leg. She denied associated fever, chills, wound discharge, muscle weakness, loss of sensation. Patient was not able to see her PMD Dr Rogers as his office was closed for the holiday. During hospital course, patient was started on vancomycin due to suspicion for cellulitis. Ultrasound of LLE was negative for DVT. ID was consulted. MRI was done which showed loculated fluid collection possible resolving hematoma or abscess, no evidence of osteomyelitis. Patient was evaluated by surgical team for possible drainage of hematoma, however patient refused surgical intervention. Patient was optimized medically and discharged to TCU for further physical therapy. She denies CP, SOB, palpitations, headache, dizziness, changes in bowel movement, urinary symptoms, numbness, tingling, weakness, and fevers. 12 point ROS noted here, otherwise unremarkable. Pmhx:HTN, HLD, CAD s/p 2 stents last in 2009, Pshx: L hip replacement 10 years ago, hysterectomy, 15 years ago Meds: as per EMR All: NKDA Social: Quit smoking 10+ years ago, Social EtOH use, denies illicit drug use Fam: Mom: DM, HTN, CVA PMD: Dr. Rogers Present on Admission - Present on Admission Any Indicators Present on Admission: No Past Patient History - Infectious Disease Hx of Infectious Diseases: None - Tetanus Immunizations Tetanus Immunization: Up to Date - Past Social History Smoking Status: Former Smoker - CARDIAC Hx Cardiac Disorders: Yes (2 stents) Hx Hypercholesterolemia: Yes Hx Hypertension: Yes - PULMONARY Hx Respiratory Disorders: No Hx Pneumonia: Yes - NEUROLOGICAL Other/Comment: bells palsy 3x's - HEENT Hx HEENT Problems: Yes (reading glasses) - RENAL Hx Kidney Stones: Yes (over 27 yrs ago) - ENDOCRINE/METABOLIC Hx Endocrine Disorders: No - HEMATOLOGICAL/ONCOLOGICAL Hx Blood Transfusions: Yes Hx Blood Transfusion Reaction: No - INTEGUMENTARY Hx Dermatological Problems: No - MUSCULOSKELETAL/RHEUMATOLOGICAL Hx Falls: Yes - GASTROINTESTINAL Hx Gastrointestinal Disorders: Yes (CONSTIPATION,ABDOMINAL HERNIA,COLON POLYP,DIVERTICULITIS,) - GENITOURINARY/GYNECOLOGICAL Hx Genitourinary Disorders: No Hx Reproductive Disorders: Yes (C SECTION X 1, CA OF CERVIX) - PSYCHIATRIC Hx Emotional Abuse: No Hx Physical Abuse: No Hx Substance Use: No - SURGICAL HISTORY Hx Cardiac Catheterization: Yes (STENT X2 2009) Hx Coronary Stent: Yes (x2 2009) Hx Hysterectomy: Yes (ca cervix about 10 yrs ago) Hx Orthopedic Surgery: Yes (R HIP REPLACEMENT 2003) Other/Comment: abd hernia sx, colon polyp removed, bilateral bunyons removed at 12 yrs old, right foot sx for bunyon and callous removal about 2 yrs ago, blader cyst and repair - ANESTHESIA Hx Anesthesia Reactions: No Hx Malignant Hyperthermia: No Meds Allergies/Adverse Reactions: Allergies Allergy/AdvReac Type Severity Reaction Status Date / Time No Known Allergies Allergy Verified 09/06/18 15:32 Physical Exam - Additional Findings Additional findings: - Constitutional Appears: No Acute Distress, Chronically Ill - Head Exam Head Exam: ATRAUMATIC, NORMOCEPHALIC - Eye Exam Eye Exam: EOMI, Normal appearance - ENT Exam ENT Exam: Mucous Membranes Dry - Neck Exam Neck Exam: Normal Inspection - Respiratory Exam Respiratory Exam: Clear to Ausculation Bilateral, NORMAL BREATHING PATTERN. absent: Accessory Muscle Use - Cardiovascular Exam Cardiovascular Exam: RRR, +S1, +S2 - GI/Abdominal Exam GI & Abdominal Exam: Soft, Normal Bowel Sounds. absent: Guarding, Rebound - Extremities Exam Extremities Exam: absent: Calf Tenderness Additional comments: left leg has multiple lesions that are healing with granulation tissue; no gross bleeding or drainage appreciated. Improved from last week. Results - Vital Signs Recent Vital Signs: Last Vital Signs Temp 97.5 F L 09/06/18 16:26 Pulse 64 09/07/18 11:56 Resp 16 09/06/18 16:26 BP 124/65 09/07/18 11:56 Pulse Ox 95 09/07/18 11:56 - Labs Result Diagrams: 09/07/18 06:15 09/07/18 06:15 Labs: Laboratory Results - last 24 hr 09/07/18 09/07/18 06:15 06:15 WBC 7.8 D RBC 3.58 Hgb 10.4 L Hct 31.3 L MCV 87.4 MCH 29.1 MCHC 33.2 RDW 12.9 Plt Count 295 MPV 8.6 Gran % 62.2 Lymph % (Auto) 22.8 Churchill % (Auto) 11.9 H Eos % (Auto) 2.6 Baso % (Auto) 0.5 Gran # 4.83 Lymph # (Auto) 1.8 Churchill # (Auto) 0.9 H Eos # (Auto) 0.2 Baso # (Auto) 0.04 Sodium 140 Potassium 3.9 Chloride 102 Carbon Dioxide 31 Anion Gap 11 BUN 15 Creatinine 0.8 Est GFR ( Amer) > 60 Est GFR (Non-Af Amer) > 60 Random Glucose 104 Calcium 9.4 Phosphorus 4.7 H Magnesium 2.3 H Total Bilirubin 0.8 AST 37 H ALT 47 Alkaline Phosphatase 92 Total Protein 7.0 Albumin 4.0 Globulin 3.0 Albumin/Globulin Ratio 1.3 Assessment & Plan - Assessment and Plan (Free Text) Assessment: 72 yo F with pmhx of HTN, HLD, CAD s/p 2 stents last in 2009, who presents to the ED for worsening left lower leg pain/swelling s/p recent hospital discharge. Being managed in the TCU. Plan: Left lower leg swelling -improving, likely cellulitis -afebrile, no WBC -MRI showed hematoma vs osteomyelitis -Ext US showed fliud collection more likely hematoma than abscess -patient refused surgical intervention -US LLE: negative for DVT -vancomycin day 6 -TCU day 1 -ID consulted -Podiatry consulted Hx of HTN: -cont Losartan, hctz, lasix Anemia: -stable, will monitor -iron studies point to iron deficiency anemia CAD s/p 2 stents: -cont Asa, Plavix PPX/Diet -pepcid. No indication for SCD as patient is ambulating -HHD Patient seen and case discussed with attending, Dr. Millan <Jesus Millan - Last Filed: 09/12/18 16:39> Results - Vital Signs Recent Vital Signs: Last Vital Signs Temp 98 F 09/11/18 16:00 Pulse 53 L 09/11/18 16:00 Resp 18 09/11/18 16:00 BP 115/60 09/12/18 09:50 Pulse Ox 97 09/11/18 16:00 - Labs Result Diagrams: 09/11/18 10:30 09/11/18 10:30 Attending/Attestation - Attestation I have personally seen and examined this patient.: Yes I have fully participated in the care of the patient.: Yes I have reviewed all pertinent clinical information: Yes Notes (Text): 72 y/o F with PMH of HTN, CAD s/p stent was recently discharged from hospital after being managed for LLE cellulitis with hematoma. Pt transferred to TCU Podiatry consulted but pt refused any surgical intervention LLE dop -ve for DVT c/w abx ID on board c/w BP meds PT/OT
--- NOTE | 2018-09-08 01:33 | CON ---
DATE: 09/07/2018 The patient was seen earlier this morning. CHIEF COMPLAINT: Weakness times several days. HISTORY OF PRESENT ILLNESS: This is a 72-year-old female with hypertension, hyperlipidemia and coronary artery disease who is complaining of left lower extremity erythema after a fall. She has no fevers and no chills. No nausea. No vomiting. No chest pain. PAST MEDICAL HISTORY: Significant for hypertension, hyperlipidemia, coronary artery disease, kidney stones, and osteoporosis. PAST SURGICAL HISTORY: Significant for hysterectomy, also surgery for cervical cancer, left hip surgery, and cardiac catheterization with PCI. ALLERGIES: THE PATIENT HAS NO KNOWN ALLERGIES. MEDICATIONS: Reviewed. REVIEW OF SYSTEMS: Twelve-point review of systems is noted. PHYSICAL EXAMINATION: GENERAL: The patient is in bed, no acute distress. VITAL SIGNS: Temperature of 98, blood pressure is 111/70, and respiratory rate of 18. HEENT: Unremarkable. NECK: Supple. LUNGS: Have decreased breath sounds. HEART: Normal S1 and S2. ABDOMEN: Soft and nontender. EXTREMITIES: Examination of the leg appears like a hematoma, indurated, and tender. LABORATORY DATA: Reveals a white count of 7, hemoglobin of 10, and platelets of 295. Chemistries reveal BUN of 15 and creatinine of 0.8. Procalcitonin is less than 0.05. Vancomycin trough level is 17. Microbiology and blood cultures are negative. ASSESSMENT AND PLAN: This is a 72-year-old female with hematoma, on day #6 of vancomycin left lower extremity hematoma after a fall which looks like an infected collection on day #6 of vancomycin and will complete in 7-10 days. We will follow with you. Eagle Fernando MD
[2018-09-08] MEDS: Oxycodone/Acetaminophen 5/325 mg Tab PO PRN ×2 (05:43→20:06)
[2018-09-08] MEDS: Vancomycin 1gm in NS 250ml 1 GM/250 ML BAG IVPB SCH ×2 (05:44→17:25)
[2018-09-08] MEDS: POLYETHYLENE GLYCOL 3350 17 GM/Dose PACKET PO SCH ×2 (09:39→17:25)
[2018-09-08] MEDS: Multivitamin Therapeutic Tab PO SCH (09:40)
[2018-09-08] MEDS: Cholecalciferol 1,000 INTLU TAB PO SCH (09:41)
--- NOTE | 2018-09-08 09:59 | CP.PCM.PN ---
<DanielsMariangel - Last Filed: 09/08/18 10:01> Subjective - Date & Time of Evaluation Date of Evaluation: 09/08/18 Time of Evaluation: 09:57 - Subjective Subjective: Podiatry progress note for Dr. Dixon, 72F pmhx significant for HLD, HTN, CAD s/p stent placement initially presented on 08/25/18 s/p fall 2 week prior off porch stairs while leaving her house. Denies acute overnight events. Denies any pain to her feet at this time. Patient denies chest pain, shortness of breath, nausea, vomiting, diarrhea, fever, chills, dysuria. Objective - Vital Signs/Intake and Output Vital Signs (last 24 hours): Temp Pulse Resp BP Pulse Ox 97.8 F 52 L 18 106/53 L 95 09/08/18 05:41 09/08/18 07:04 09/08/18 05:41 09/08/18 07:04 09/08/18 05:41 - Medications Medications: Current Medications Alendronate Sodium (Fosamax) 70 mg PO MON [facility]; Protocol Aspirin (Ecotrin) 81 mg PO 0800 [facility]; Protocol Last Admin: 09/08/18 07:54 Dose: 81 mg Atorvastatin Calcium (Lipitor) 10 mg PO DIN [facility] Last Admin: 09/07/18 17:20 Dose: 10 mg Cholecalciferol (Vitamin D) 1,000 intlu PO DAILY [facility] Last Admin: 09/08/18 09:41 Dose: 1,000 intlu Clopidogrel Bisulfate (Plavix) 75 mg PO DAILY [facility]; Protocol Last Admin: 09/08/18 09:40 Dose: 75 mg Docusate Sodium (Colace) 100 mg PO BID PRN; Protocol PRN Reason: Constipation Famotidine (Pepcid) 20 mg PO 1000,2200 [facility] Last Admin: 09/08/18 09:40 Dose: 20 mg Furosemide (Lasix) 20 mg IVP 0630 [facility]; Protocol Last Admin: 09/08/18 07:03 Dose: Not Given Hydrochlorothiazide (Microzide) 12.5 mg PO 0800 [facility]; Protocol Last Admin: 09/08/18 07:54 Dose: Not Given Vancomycin HCl (Vancomycin 1gm) 1 gm in 250 mls @ 167 mls/hr IVPB 0600,1800 [facility]; Protocol Stop: 09/11/18 07:30 Last Admin: 09/08/18 05:44 Dose: 167 mls/hr Losartan Potassium (Cozaar) 100 mg PO DAILY [facility]; Protocol Last Admin: 09/08/18 09:40 Dose: Not Given Multivitamins (Thera Tab) 1 tab PO DAILY [facility] Last Admin: 09/08/18 09:40 Dose: 1 tab Ondansetron HCl (Zofran Inj) 4 mg IVP Q4H PRN; Protocol PRN Reason: Nausea/Vomiting Oxycodone/Acetaminophen (Percocet 5/325 Mg Tab) 1 tab PO Q6H PRN PRN Reason: Pain, severe (8-10) Stop: 09/09/18 19:10 Last Admin: 09/08/18 05:43 Dose: 1 tab Polyethylene Glycol (Miralax) 17 gm PO BID [facility]; Protocol Last Admin: 09/08/18 09:39 Dose: Not Given Primidone (Mysoline) 50 mg PO HS [facility]; Protocol Last Admin: 09/07/18 21:01 Dose: 50 mg Topiramate (Topamax) 50 mg PO HS [facility]; Protocol Last Admin: 09/07/18 21:01 Dose: 50 mg - Labs Labs: 09/07/18 06:15 09/07/18 06:15 - Constitutional Appears: Well, Non-toxic, No Acute Distress - Head Exam Head Exam: ATRAUMATIC, NORMOCEPHALIC - Eye Exam Eye Exam: Normal appearance Pupil Exam: NORMAL ACCOMODATION - ENT Exam ENT Exam: Mucous Membranes Moist - Extremities Exam Additional comments: Bilateral lower extremity exam: vascular: DP/PT nonpalpable secondary to swelling on the left foot, erythema and ecchymosis noted to the dorsal and posterior aspect of the left foot, CFT <3 secs x 10, TG warm to cool derm: no open lesions, scab noted on the dorsal aspect of the left foot, ecchymosis noted to the posterior, medial and lateral aspect of the left rear foot, multiple scabs noted to the anterior aspect of the leg b/l, no malodor, no purulent drainage ortho: pain on palpation to the dorsal aspect of the left foot, pain with ROM of the left ankle and foot, no pain to the right foot and ankle neuro: protective sensation intact via ipswich 12/08 b/l Assessment and Plan - Assessment and Plan (Free Text) Assessment: 72 yo female seen 2 weeks s/p fall, left foot ecchymosis and cellulitis; possible hematoma on the dorsal of the left foot and anterior left leg Plan: Patient seen and evaluated Chart, labs and vitals reviewed and discussed in detail with the attending, Dr dixon left foot x-rays reviewed; official read pending No dressing needed to the lower extremity at this time Podiatry will continue to follow the patient <Tiffanie Dixon - Last Filed: 09/10/18 14:12> Objective - Vital Signs/Intake and Output Vital Signs (last 24 hours): Temp Pulse Resp BP Pulse Ox 97.8 F 59 L 20 99/59 L 96 09/10/18 10:00 09/10/18 10:00 09/10/18 10:00 09/10/18 10:00 09/10/18 10:00 - Medications Medications: Current Medications Alendronate Sodium (Fosamax) 70 mg PO MON [facility]; Protocol Aspirin (Ecotrin) 81 mg PO 0800 [facility]; Protocol Last Admin: 09/10/18 08:20 Dose: 81 mg Atorvastatin Calcium (Lipitor) 10 mg PO DIN [facility] Last Admin: 09/09/18 17:38 Dose: 10 mg Cholecalciferol (Vitamin D) 1,000 intlu PO DAILY [facility] Last Admin: 09/10/18 10:24 Dose: 1,000 intlu Clopidogrel Bisulfate (Plavix) 75 mg PO DAILY [facility]; Protocol Last Admin: 09/10/18 10:24 Dose: 75 mg Docusate Sodium (Colace) 100 mg PO BID PRN; Protocol PRN Reason: Constipation Famotidine (Pepcid) 20 mg PO 1000,2200 [facility] Last Admin: 09/10/18 10:23 Dose: 20 mg Furosemide (Lasix) 40 mg PO DAILY [facility] Last Admin: 09/10/18 09:48 Dose: Not Given Hydrochlorothiazide (Microzide) 12.5 mg PO 0800 [facility]; Protocol Last Admin: 09/10/18 08:20 Dose: 12.5 mg Hydrocortisone (Cortizone 0.5%) 1 ea TOP BID PRN PRN Reason: Itching / Pruritus Losartan Potassium (Cozaar) 100 mg PO DAILY [facility]; Protocol Last Admin: 09/10/18 09:49 Dose: Not Given Multivitamins (Thera Tab) 1 tab PO DAILY [facility] Last Admin: 09/10/18 10:24 Dose: 1 tab Ondansetron HCl (Zofran Inj) 4 mg IVP Q4H PRN; Protocol PRN Reason: Nausea/Vomiting Oxycodone/Acetaminophen (Percocet 5/325 Mg Tab) 1 tab PO Q6H PRN PRN Reason: Pain, severe (8-10) Stop: 09/13/18 11:07 Last Admin: 09/10/18 11:12 Dose: 1 tab Polyethylene Glycol (Miralax) 17 gm PO BID [facility]; Protocol Last Admin: 09/10/18 10:23 Dose: 17 gm Primidone (Mysoline) 50 mg PO HS [facility]; Protocol Last Admin: 09/09/18 21:59 Dose: 50 mg Topiramate (Topamax) 50 mg PO HS [facility]; Protocol Last Admin: 09/09/18 21:59 Dose: 50 mg - Labs Labs: 09/07/18 06:15 09/07/18 06:15 Attending/Attestation - Attestation I have personally seen and examined this patient.: Yes I have fully participated in the care of the patient.: Yes I have reviewed all pertinent clinical information, including history, physical exam and plan: Yes
--- NOTE | 2018-09-08 12:56 | RAD ---
Date of service: 09/07/2018 PROCEDURE: Left Foot Radiographs. HISTORY: possible fracture secondary to fall COMPARISON: None. FINDINGS: BONES: No acute findings. Previous osteotomy head of 1st metatarsal JOINTS: Normal. SOFT TISSUES: Normal. OTHER FINDINGS: None. IMPRESSION: No acute findings. Previous osteotomy head of 1st metatarsal
--- NOTE | 2018-09-08 20:19 | PN ---
DATE: 09/08/2018 SUBJECTIVE: The patient is in bed, no acute distress, nontoxic. PHYSICAL EXAMINATION: VITAL SIGNS: Temperature is 97, blood pressure is 104/50, respiratory rate of 17, and heart rate of 78. HEENT: Unremarkable. NECK: Supple. LUNGS: Have decreased breath sounds. HEART: Normal S1 and S2. ABDOMEN: Soft. EXTREMITIES: Examination of leg is just ecchymotic. No evidence of cellulitis on exam. ASSESSMENT AND PLAN: This is a 72-year-old female with a hematoma on her left leg. Today is day #7 of vancomycin. We will discontinue vancomycin. No evidence of infection at this time. Follow the patient. Off of antibiotics. The patient has received 7 days of vancomycin. No further antibiotics at this point. We will follow with you. Eagle Fernando MD
--- NOTE | 2018-09-09 07:36 | CP.PCM.PN ---
<Maday Botello L - Last Filed: 09/09/18 18:04> Subjective - Date & Time of Evaluation Date of Evaluation: 09/09/18 Time of Evaluation: 07:35 - Subjective Subjective: Resident Progress Note for Hospitalist Service Patient examined at bedside. No acute events overnight. Patient reports improvement in leg swelling, however does admit to intermittent pain and pruritus. Patient states she is tolerating physical therapy well. Objective - Vital Signs/Intake and Output Vital Signs (last 24 hours): Temp Pulse Resp BP Pulse Ox 97.7 F 78 18 119/62 95 09/08/18 10:00 09/08/18 10:00 09/08/18 10:00 09/09/18 05:46 09/08/18 05:41 - Medications Medications: Current Medications Alendronate Sodium (Fosamax) 70 mg PO MON [facility]; Protocol Aspirin (Ecotrin) 81 mg PO 0800 [facility]; Protocol Last Admin: 09/08/18 07:54 Dose: 81 mg Atorvastatin Calcium (Lipitor) 10 mg PO DIN [facility] Last Admin: 09/08/18 17:26 Dose: 10 mg Cholecalciferol (Vitamin D) 1,000 intlu PO DAILY [facility] Last Admin: 09/08/18 09:41 Dose: 1,000 intlu Clopidogrel Bisulfate (Plavix) 75 mg PO DAILY [facility]; Protocol Last Admin: 09/08/18 09:40 Dose: 75 mg Docusate Sodium (Colace) 100 mg PO BID PRN; Protocol PRN Reason: Constipation Famotidine (Pepcid) 20 mg PO 1000,2200 [facility] Last Admin: 09/08/18 21:13 Dose: 20 mg Furosemide (Lasix) 20 mg IVP 0630 [facility]; Protocol Last Admin: 09/09/18 05:46 Dose: 20 mg Hydrochlorothiazide (Microzide) 12.5 mg PO 0800 [facility]; Protocol Last Admin: 09/08/18 07:54 Dose: Not Given Losartan Potassium (Cozaar) 100 mg PO DAILY [facility]; Protocol Last Admin: 09/08/18 09:40 Dose: Not Given Multivitamins (Thera Tab) 1 tab PO DAILY [facility] Last Admin: 09/08/18 09:40 Dose: 1 tab Ondansetron HCl (Zofran Inj) 4 mg IVP Q4H PRN; Protocol PRN Reason: Nausea/Vomiting Oxycodone/Acetaminophen (Percocet 5/325 Mg Tab) 1 tab PO Q6H PRN PRN Reason: Pain, severe (8-10) Stop: 09/09/18 19:10 Last Admin: 09/08/18 20:06 Dose: 1 tab Polyethylene Glycol (Miralax) 17 gm PO BID [facility]; Protocol Last Admin: 09/08/18 17:25 Dose: Not Given Primidone (Mysoline) 50 mg PO HS [facility]; Protocol Last Admin: 09/08/18 21:12 Dose: 50 mg Topiramate (Topamax) 50 mg PO HS [facility]; Protocol Last Admin: 09/08/18 21:13 Dose: 50 mg - Labs Labs: 09/07/18 06:15 09/07/18 06:15 - Additional Findings Additional findings: - Constitutional Appears: No Acute Distress - Head Exam Head Exam: ATRAUMATIC, NORMOCEPHALIC - Eye Exam Eye Exam: EOMI, Normal appearance - ENT Exam ENT Exam: Mucous Membranes Dry - Neck Exam Neck Exam: Normal Inspection - Respiratory Exam Respiratory Exam: Clear to Auscultation Bilateral, NORMAL BREATHING PATTERN. absent: Accessory Muscle Use - Cardiovascular Exam Cardiovascular Exam: RRR, +S1, +S2 - GI/Abdominal Exam GI & Abdominal Exam: Soft, Normal Bowel Sounds. absent: Guarding, Rebound - Extremities Exam Extremities Exam: absent: Calf Tenderness Additional comments: left leg has multiple lesions that are healing with granulation tissue; no gross bleeding or drainage appreciated, improved Assessment and Plan - Assessment and Plan (Free Text) Assessment: 72 yo F with pmhx of HTN, HLD, CAD s/p 2 stents last in 2009, who presents to the ED for worsening left lower leg pain/swelling s/p recent hospital discharge, now admitted to TCU. Plan: LLE swelling - afebrile, no leukocytosis - MRI showed hematoma vs. osteomyelitis - Extremity U/S showed fluid collection more likely hematoma than abscess - patient refused surgical intervention - US LLE: negative for DVT - vancomycin discontinued - Percocet PRN for pain management - ID and podiatry consulted. Recs appreciated. HTN - continue Losartan, HCTZ, Lasix Anemia - stable, continue monitor - iron studies point to iron deficiency anemia CAD s/p stents - continue Asa, Plavix PPX - Pepcid Case discussed with Dr. Tyler Botello PGY-1 <Jovanni Scott - Last Filed: 09/10/18 14:05> Objective - Vital Signs/Intake and Output Vital Signs (last 24 hours): Temp Pulse Resp BP Pulse Ox 97.8 F 59 L 20 99/59 L 96 09/10/18 10:00 09/10/18 10:00 09/10/18 10:00 09/10/18 10:00 09/10/18 10:00 - Medications Medications: Current Medications Alendronate Sodium (Fosamax) 70 mg PO MON [facility]; Protocol Aspirin (Ecotrin) 81 mg PO 0800 [facility]; Protocol Last Admin: 09/10/18 08:20 Dose: 81 mg Atorvastatin Calcium (Lipitor) 10 mg PO DIN [facility] Last Admin: 09/09/18 17:38 Dose: 10 mg Cholecalciferol (Vitamin D) 1,000 intlu PO DAILY [facility] Last Admin: 09/10/18 10:24 Dose: 1,000 intlu Clopidogrel Bisulfate (Plavix) 75 mg PO DAILY [facility]; Protocol Last Admin: 09/10/18 10:24 Dose: 75 mg Docusate Sodium (Colace) 100 mg PO BID PRN; Protocol PRN Reason: Constipation Famotidine (Pepcid) 20 mg PO 1000,2200 [facility] Last Admin: 09/10/18 10:23 Dose: 20 mg Furosemide (Lasix) 40 mg PO DAILY [facility] Last Admin: 09/10/18 09:48 Dose: Not Given Hydrochlorothiazide (Microzide) 12.5 mg PO 0800 [facility]; Protocol Last Admin: 09/10/18 08:20 Dose: 12.5 mg Hydrocortisone (Cortizone 0.5%) 1 ea TOP BID PRN PRN Reason: Itching / Pruritus Losartan Potassium (Cozaar) 100 mg PO DAILY [facility]; Protocol Last Admin: 09/10/18 09:49 Dose: Not Given Multivitamins (Thera Tab) 1 tab PO DAILY [facility] Last Admin: 09/10/18 10:24 Dose: 1 tab Ondansetron HCl (Zofran Inj) 4 mg IVP Q4H PRN; Protocol PRN Reason: Nausea/Vomiting Oxycodone/Acetaminophen (Percocet 5/325 Mg Tab) 1 tab PO Q6H PRN PRN Reason: Pain, severe (8-10) Stop: 09/13/18 11:07 Last Admin: 09/10/18 11:12 Dose: 1 tab Polyethylene Glycol (Miralax) 17 gm PO BID [facility]; Protocol Last Admin: 09/10/18 10:23 Dose: 17 gm Primidone (Mysoline) 50 mg PO HS [facility]; Protocol Last Admin: 09/09/18 21:59 Dose: 50 mg Topiramate (Topamax) 50 mg PO HS [facility]; Protocol Last Admin: 09/09/18 21:59 Dose: 50 mg - Labs Labs: 09/07/18 06:15 09/07/18 06:15 Attending/Attestation - Attestation I have personally seen and examined this patient.: Yes I have fully participated in the care of the patient.: Yes I have reviewed all pertinent clinical information, including history, physical exam and plan: Yes
[2018-09-09] MEDS: POLYETHYLENE GLYCOL 3350 17 GM/Dose PACKET PO SCH ×2 (10:20→17:39)
[2018-09-09] MEDS: Multivitamin Therapeutic Tab PO SCH (10:21)
[2018-09-09] MEDS: Cholecalciferol 1,000 INTLU TAB PO SCH (10:21)
[2018-09-09] MEDS: Oxycodone/Acetaminophen 5/325 mg Tab PO PRN (10:32)
[2018-09-09] MEDS ORDERED: Hydrocortisone 0.5% Cream(30 gm) TOP PRN (12:26)
--- NOTE | 2018-09-09 13:11 | CP.PCM.PN ---
Subjective - Date & Time of Evaluation Date of Evaluation: 09/09/18 Time of Evaluation: 10:55 - Subjective Subjective: Afebrile, non-toxic. Objective - Vital Signs/Intake and Output Vital Signs (last 24 hours): Temp Pulse Resp BP Pulse Ox 97.7 F 78 18 119/62 95 09/08/18 10:00 09/08/18 10:00 09/08/18 10:00 09/09/18 05:46 09/08/18 05:41 - Medications Medications: Current Medications Alendronate Sodium (Fosamax) 70 mg PO MON [facility]; Protocol Aspirin (Ecotrin) 81 mg PO 0800 [facility]; Protocol Last Admin: 09/08/18 07:54 Dose: 81 mg Atorvastatin Calcium (Lipitor) 10 mg PO DIN [facility] Last Admin: 09/08/18 17:26 Dose: 10 mg Cholecalciferol (Vitamin D) 1,000 intlu PO DAILY [facility] Last Admin: 09/08/18 09:41 Dose: 1,000 intlu Clopidogrel Bisulfate (Plavix) 75 mg PO DAILY [facility]; Protocol Last Admin: 09/08/18 09:40 Dose: 75 mg Docusate Sodium (Colace) 100 mg PO BID PRN; Protocol PRN Reason: Constipation Famotidine (Pepcid) 20 mg PO 1000,2200 [facility] Last Admin: 09/08/18 21:13 Dose: 20 mg Furosemide (Lasix) 20 mg IVP 0630 [facility]; Protocol Last Admin: 09/09/18 05:46 Dose: 20 mg Hydrochlorothiazide (Microzide) 12.5 mg PO 0800 [facility]; Protocol Last Admin: 09/08/18 07:54 Dose: Not Given Losartan Potassium (Cozaar) 100 mg PO DAILY [facility]; Protocol Last Admin: 09/08/18 09:40 Dose: Not Given Multivitamins (Thera Tab) 1 tab PO DAILY [facility] Last Admin: 09/08/18 09:40 Dose: 1 tab Ondansetron HCl (Zofran Inj) 4 mg IVP Q4H PRN; Protocol PRN Reason: Nausea/Vomiting Oxycodone/Acetaminophen (Percocet 5/325 Mg Tab) 1 tab PO Q6H PRN PRN Reason: Pain, severe (8-10) Stop: 09/09/18 19:10 Last Admin: 09/08/18 20:06 Dose: 1 tab Polyethylene Glycol (Miralax) 17 gm PO BID [facility]; Protocol Last Admin: 09/08/18 17:25 Dose: Not Given Primidone (Mysoline) 50 mg PO HS [facility]; Protocol Last Admin: 09/08/18 21:12 Dose: 50 mg Topiramate (Topamax) 50 mg PO HS [facility]; Protocol Last Admin: 09/08/18 21:13 Dose: 50 mg - Labs Labs: 09/07/18 06:15 09/07/18 06:15 - Constitutional Appears: No Acute Distress, Chronically Ill - Head Exam Head Exam: NORMAL INSPECTION - Neck Exam Neck Exam: Meningismus - Respiratory Exam Respiratory Exam: Decreased Breath Sounds - Cardiovascular Exam Cardiovascular Exam: +S1, +S2 - GI/Abdominal Exam GI & Abdominal Exam: Soft. absent: Tenderness Assessment and Plan - Assessment and Plan (Free Text) Plan: Assessment Left lower extremity skin and structure infection with associated hematoma after trauma, clinically improved HTN dyslipidemia CAD Plan completed 7 days of Vancomycin will continue to monitor clinically off antibiotics since she is at risk for nosocomial infections
[2018-09-09] MEDS ORDERED: Oxycodone/Acetaminophen 5/325 mg Tab PO STA (22:16)
[2018-09-10] MEDS: POLYETHYLENE GLYCOL 3350 17 GM/Dose PACKET PO SCH ×2 (10:23→17:05)
[2018-09-10] MEDS: Multivitamin Therapeutic Tab PO SCH (10:24)
[2018-09-10] MEDS: Cholecalciferol 1,000 INTLU TAB PO SCH (10:24)
[2018-09-10] MEDS: Oxycodone/Acetaminophen 5/325 mg Tab PO PRN ×2 (11:12→21:28)
--- NOTE | 2018-09-10 11:56 | PN ---
DATE: 09/10/2018 SUBJECTIVE: The patient is in bed, in no acute distress, nontoxic. PHYSICAL EXAMINATION: VITAL SIGNS: Temperature is 98, blood pressure is 104/60, respiratory rate of 18, heart rate of 82. HEENT: Unremarkable. NECK: Supple. LUNGS: Have decreased breath sounds. HEART: Normal S1, S2. ABDOMEN: Soft. LABORATORY DATA: BUN of 15, creatinine of 0.8, and microbiology is noted. Review of orders reveals the patient to be off of antibiotics. ASSESSMENT AND PLAN: A 72-year-old female with left lower extremity skin and skin structure infection associated with hematoma after a trauma, clinically improved, hypertension, hyperlipidemia, coronary artery disease, completed 7 days of vancomycin, currently off of antibiotics, afebrile. We will follow with you. Eagle Fernando MD
--- NOTE | 2018-09-11 07:08 | CP.PCM.PN ---
<Maday Botello L - Last Filed: 09/11/18 13:43> Subjective - Date & Time of Evaluation Date of Evaluation: 09/11/18 Time of Evaluation: 07:08 - Subjective Subjective: Resident Progress Note for Hospitalist Service Patient examined at bedside. No acute events overnight. Patient reports improved lower extremity swelling and is tolerating physical therapy. Patient approved for TCU admission until 09/15. Denies fevers, chills, chest pain, shortness of breath, nausea, vomiting. Objective - Vital Signs/Intake and Output Vital Signs (last 24 hours): Temp Pulse Resp BP Pulse Ox 97.8 F 53 L 20 96/42 L 96 09/10/18 16:00 09/10/18 16:00 09/10/18 16:00 09/10/18 16:00 09/10/18 16:00 - Medications Medications: Current Medications Alendronate Sodium (Fosamax) [address] [facility]; Protocol Aspirin (Ecotrin) [address] [facility]; Protocol Last Admin: 09/10/18 08:20 Dose: 81 mg Atorvastatin Calcium (Lipitor) [address] [facility] Last Admin: 09/10/18 17:05 Dose: 10 mg Cholecalciferol (Vitamin D) 1,[address] [facility] Last Admin: 09/10/18 10:24 Dose: 1,000 intlu Clopidogrel Bisulfate (Plavix) [address] [facility]; Protocol Last Admin: 09/10/18 10:24 Dose: 75 mg Docusate Sodium (Colace) 100 mg PO BID PRN; Protocol PRN Reason: Constipation Famotidine (Pepcid) 20 mg PO 1000,2200 [facility] Last Admin: 09/10/18 21:28 Dose: 20 mg Furosemide (Lasix) [address] [facility] Last Admin: 09/10/18 09:48 Dose: Not Given Hydrochlorothiazide (Microzide) 12.[address] [facility]; Protocol Last Admin: 09/10/18 08:20 Dose: 12.5 mg Hydrocortisone (Cortizone 0.5%) 1 ea TOP BID PRN PRN Reason: Itching / Pruritus Losartan Potassium (Cozaar) [address] [facility]; Protocol Last Admin: 09/10/18 09:49 Dose: Not Given Multivitamins (Thera Tab) [address] [facility] Last Admin: 09/10/18 10:24 Dose: 1 tab Ondansetron HCl (Zofran Inj) 4 mg IVP Q4H PRN; Protocol PRN Reason: Nausea/Vomiting Oxycodone/Acetaminophen (Percocet 5/325 Mg Tab) 1 tab PO Q6H PRN PRN Reason: Pain, severe (8-10) Stop: 09/13/18 11:07 Last Admin: 09/10/18 21:28 Dose: 1 tab Polyethylene Glycol (Miralax) 17 gm PO BID [facility]; Protocol Last Admin: 09/10/18 17:05 Dose: Not Given Primidone (Mysoline) [address] [facility]; Protocol Last Admin: 09/10/18 21:28 Dose: 50 mg Topiramate (Topamax) 50 mg PO HS [facility]; Protocol Last Admin: 09/10/18 21:28 Dose: 50 mg - Labs Labs: 09/07/18 06:15 09/07/18 06:15 - Additional Findings Additional findings: - Constitutional Appears: No Acute Distress - Head Exam Head Exam: ATRAUMATIC, NORMOCEPHALIC - Eye Exam Eye Exam: EOMI, Normal appearance - ENT Exam ENT Exam: Mucous Membranes Moist - Neck Exam Neck Exam: Normal Inspection - Respiratory Exam Respiratory Exam: Clear to Auscultation Bilateral, NORMAL BREATHING PATTERN. absent: Accessory Muscle Use - Cardiovascular Exam Cardiovascular Exam: RRR, +S1, +S2 - GI/Abdominal Exam GI & Abdominal Exam: Soft, Normal Bowel Sounds. absent: Guarding, Rebound - Extremities Exam Extremities Exam: absent: Calf Tenderness Additional comments: left leg has multiple lesions that are healing with granulation tissue; no gross bleeding or drainage appreciated, improved Assessment and Plan - Assessment and Plan (Free Text) Assessment: 72 yo F with pmhx of HTN, HLD, CAD s/p 2 stents last in 2009, who presents to the ED for worsening left lower leg pain/swelling s/p recent hospital discharge, now admitted to TCU. Plan: LLE swelling - afebrile, no leukocytosis - MRI showed hematoma vs. osteomyelitis - Extremity U/S showed fluid collection more likely hematoma than abscess - patient refused surgical intervention - US LLE: negative for DVT - vancomycin discontinued - Percocet PRN for pain management - ID and podiatry consulted. Recs appreciated. HTN - continue Losartan, HCTZ, Lasix Anemia - stable, continue monitor - iron studies point to iron deficiency anemia CAD s/p stents - continue ASA, Plavix PPX - Pepcid Case discussed with Dr. Inocencio Botello PGY-1 <Tanya Painter - Last Filed: 09/11/18 18:29> Objective - Vital Signs/Intake and Output Vital Signs (last 24 hours): Temp Pulse Resp BP Pulse Ox 98 F 53 L 18 118/53 L 97 09/11/18 16:00 09/11/18 16:00 09/11/18 16:00 09/11/18 16:00 09/11/18 16:00 - Medications Medications: Current Medications Alendronate Sodium (Fosamax) [address] [facility]; Protocol Aspirin (Ecotrin) [address] [facility]; Protocol Last Admin: 09/11/18 08:00 Dose: 81 mg Atorvastatin Calcium (Lipitor) [address] [facility] Last Admin: 09/11/18 17:12 Dose: 10 mg Cholecalciferol (Vitamin D) 1,[address] [facility] Last Admin: 09/11/18 11:00 Dose: 1,000 intlu Clopidogrel Bisulfate (Plavix) [address] [facility]; Protocol Last Admin: 09/11/18 11:00 Dose: 75 mg Docusate Sodium (Colace) 100 mg PO BID PRN; Protocol PRN Reason: Constipation Famotidine (Pepcid) 20 mg PO 1000,2200 [facility] Last Admin: 09/11/18 11:00 Dose: 20 mg Furosemide (Lasix) [address] [facility] Last Admin: 09/11/18 11:00 Dose: Not Given Hydrochlorothiazide (Microzide) 12.[address] [facility]; Protocol Last Admin: 09/11/18 08:00 Dose: 12.5 mg Hydrocortisone (Cortizone 0.5%) 1 ea TOP BID PRN PRN Reason: Itching / Pruritus Losartan Potassium (Cozaar) [address] [facility]; Protocol Last Admin: 09/11/18 11:19 Dose: Not Given Multivitamins (Thera Tab) [address] [facility] Last Admin: 09/11/18 11:00 Dose: 1 tab Ondansetron HCl (Zofran Inj) 4 mg IVP Q4H PRN; Protocol PRN Reason: Nausea/Vomiting Oxycodone/Acetaminophen (Percocet 5/325 Mg Tab) 1 tab PO Q6H PRN PRN Reason: Pain, severe (8-10) Stop: 09/13/18 11:07 Last Admin: 09/11/18 09:37 Dose: 1 tab Polyethylene Glycol (Miralax) 17 gm PO BID [facility]; Protocol Last Admin: 09/11/18 17:12 Dose: Not Given Primidone (Mysoline) 50 mg PO HS [facility]; Protocol Last Admin: 09/10/18 21:28 Dose: 50 mg Topiramate (Topamax) 50 mg PO HS [facility]; Protocol Last Admin: 09/10/18 21:28 Dose: 50 mg - Labs Labs: 09/11/18 10:30 09/11/18 10:30 Attending/Attestation - Attestation I have personally seen and examined this patient.: Yes I have fully participated in the care of the patient.: Yes I have reviewed all pertinent clinical information, including history, physical exam and plan: Yes Notes (Text): 09/11/18 18:29 Medical record note made by the resident after discussion with my direction and input after the patient was personally seen and examined by me. I have reviewed the chart and agree that the record accurately reflects by personal performance of the history, physical exam, data review, and medical decision-making, in the course for the patient. I have also personally directed the plan of care.
[2018-09-11] MEDS: Oxycodone/Acetaminophen 5/325 mg Tab PO PRN ×2 (09:37→21:19)
[2018-09-11 10:42] VITALS: RESP 18
[2018-09-11 10:43] LABS: BASO # 0.07 K/mm3 (0.0-2.0); BASO % 0.9 % (0.0-3.0); EOS # 0.2 (0.0-0.7); EOS % 2.2 % (1.5-5.0); GRAN # 5.79 (1.4-6.5); GRAN % 71.3 % (50.0-68.0); HEMOGLOBIN 11.3 g/dL (12.0-16.0); LYMPH # 1.4 (1.2-3.4); LYMPH % 16.6 % (22.0-35.0); MEAN CELL VOLUME 88.8 fl (80.0-105.0); MEAN CORPUSCULAR HEMOGLOBIN 29.4 pg (25.0-35.0); MEAN PLATELET VOLUME 8.5 fl (7.0-11.0); MONO # 0.7 (0.1-0.6); RBC 3.85 10^6/uL (3.5-6.1); RED CELL DISTRIBUTION WIDTH 13.3 % (11.5-14.5); WHITE BLOOD COUNT 8.1 10^3/uL (4.5-11.0)
[2018-09-11 10:59] LABS: ALB/GLOB RATIO 1.3 (1.1-1.8); ALBUMIN 4.4 g/dL (3.0-4.8); ALT/SGPT 40 U/L (7-56); AST/SGOT 42 U/L (14-36); BLOOD UREA NITROGEN 17 mg/dL (7-21); CALCIUM 9.6 mg/dL (8.4-10.5); GFR NON-AFRICAN AMERICAN > 60
[2018-09-11] MEDS: Multivitamin Therapeutic Tab PO SCH (11:00)
[2018-09-11] MEDS: POLYETHYLENE GLYCOL 3350 17 GM/Dose PACKET PO SCH ×2 (11:00→17:12)
[2018-09-11] MEDS: Cholecalciferol 1,000 INTLU TAB PO SCH (11:00)
--- NOTE | 2018-09-11 16:49 | CP.PCM.PN ---
Subjective - Date & Time of Evaluation Date of Evaluation: 09/11/18 Time of Evaluation: 16:49 - Subjective Subjective: Podiatry Progress Note - Dr. Dixon 72 y/o female seen at bedside this morning for left foot cellulitis with ankle ecchymosis and anterior leg hematoma. Admits she is still having pain around the left ankle and to the top of the foot. Says she has been walking with physical therapy with use of a surgical shoe. Denies acute overnight events. Denies any pain to her feet at this time. Patient denies chest pain, shortness of breath, nausea, vomiting, diarrhea, fever, chills, dysuria. Objective - Vital Signs/Intake and Output Vital Signs (last 24 hours): Temp Pulse Resp BP Pulse Ox 98 F 53 L 18 118/53 L 97 09/11/18 16:00 09/11/18 16:00 09/11/18 16:00 09/11/18 16:00 09/11/18 16:00 - Medications Medications: Current Medications Alendronate Sodium (Fosamax) 70 mg PO MON [facility]; Protocol Aspirin (Ecotrin) 81 mg PO 0800 [facility]; Protocol Last Admin: 09/11/18 08:00 Dose: 81 mg Atorvastatin Calcium (Lipitor) 10 mg PO DIN [facility] Last Admin: 09/10/18 17:05 Dose: 10 mg Cholecalciferol (Vitamin D) 1,000 intlu PO DAILY [facility] Last Admin: 09/11/18 11:00 Dose: 1,000 intlu Clopidogrel Bisulfate (Plavix) 75 mg PO DAILY [facility]; Protocol Last Admin: 09/11/18 11:00 Dose: 75 mg Docusate Sodium (Colace) 100 mg PO BID PRN; Protocol PRN Reason: Constipation Famotidine (Pepcid) 20 mg PO 1000,2200 [facility] Last Admin: 09/11/18 11:00 Dose: 20 mg Furosemide (Lasix) 40 mg PO DAILY [facility] Last Admin: 09/11/18 11:00 Dose: Not Given Hydrochlorothiazide (Microzide) 12.5 mg PO 0800 [facility]; Protocol Last Admin: 09/11/18 08:00 Dose: 12.5 mg Hydrocortisone (Cortizone 0.5%) 1 ea TOP BID PRN PRN Reason: Itching / Pruritus Losartan Potassium (Cozaar) 100 mg PO DAILY [facility]; Protocol Last Admin: 09/11/18 11:19 Dose: Not Given Multivitamins (Thera Tab) 1 tab PO DAILY [facility] Last Admin: 09/11/18 11:00 Dose: 1 tab Ondansetron HCl (Zofran Inj) 4 mg IVP Q4H PRN; Protocol PRN Reason: Nausea/Vomiting Oxycodone/Acetaminophen (Percocet 5/325 Mg Tab) 1 tab PO Q6H PRN PRN Reason: Pain, severe (8-10) Stop: 09/13/18 11:07 Last Admin: 09/11/18 09:37 Dose: 1 tab Polyethylene Glycol (Miralax) 17 gm PO BID [facility]; Protocol Last Admin: 09/11/18 11:00 Dose: 17 gm Primidone (Mysoline) 50 mg PO HS [facility]; Protocol Last Admin: 09/10/18 21:28 Dose: 50 mg Topiramate (Topamax) 50 mg PO HS [facility]; Protocol Last Admin: 09/10/18 21:28 Dose: 50 mg - Labs Labs: 09/11/18 10:30 09/11/18 10:30 - Constitutional Appears: Well, Non-toxic, No Acute Distress - Extremities Exam Additional comments: Bilateral lower extremity exam: Vascular: DP/PT nonpalpable secondary to swelling on the left foot, erythema and ecchymosis noted to the dorsal and posterior aspect of the left foot, CFT <3 secs x 10, TG warm to cool Derm: no open lesions, scab noted on the dorsal aspect of the left foot, ecchymosis noted to the posterior, medial and lateral aspect of the left rearfoot, multiple scabs noted to the anterior aspect of the leg b/l, no malodor, no purulent drainage Ortho: pain on palpation to the dorsal aspect of the left foot, pain with ROM of the left ankle and foot, no pain to the right foot and ankle Neuro: protective sensation intact via ipswich 4/4 B/L - Neurological Exam Neurological Exam: Alert, Awake, Oriented x3 - Psychiatric Exam Psychiatric exam: Normal Affect, Normal Mood Assessment and Plan - Assessment and Plan (Free Text) Assessment: 72 yo female with left foot ecchymosis and dorsal foot cellulitis Plan: Patient seen and evaluated Discussed in detail with the attending, Dr. Zack Greenberg foot x-rays reviewed - no acute osseous findings No dressing needed to the lower extremity at this time Podiatry will continue to follow the patient
--- NOTE | 2018-09-11 21:17 | PN ---
DATE: 09/11/2018 SUBJECTIVE: The patient is in bed, in no acute distress, nontoxic. OBJECTIVE: VITAL SIGNS: On exam, temperature is 97, blood pressure is 118/50, respiratory rate of 18. HEENT: Unremarkable. NECK: Supple. LUNGS: Have decreased breath sounds. HEART: Normal S1, S2. ABDOMEN: Soft. LABORATORY EXAMINATION: Reveals a white count of 8.1, hemoglobin of 11, platelets of 313, BUN 17, creatinine of 0.8. Microbiology is noted. ASSESSMENT AND PLAN: This is a 72-year-old female with a left lower extremity skin and skin structure infection associated with hematoma after a trauma, now completed vancomycin therapy of 7 days in a patient with hypertension, hyperlipidemia, coronary artery disease. Review of orders reveals the patient to be off antibiotics, afebrile. We will follow with you. Eagle Fernando MD
[2018-09-12] MEDS: POLYETHYLENE GLYCOL 3350 17 GM/Dose PACKET PO SCH ×2 (09:34→17:30)
[2018-09-12] MEDS: Cholecalciferol 1,000 INTLU TAB PO SCH (09:51)
[2018-09-12] MEDS: Multivitamin Therapeutic Tab PO SCH (09:51)
--- NOTE | 2018-09-12 11:32 | CP.PCM.PCO ---
Physician Communication Note - Physician Communication Note Physician Communication Note: Podiatry will now sign off on this patient
[2018-09-12] MEDS: Oxycodone/Acetaminophen 5/325 mg Tab PO PRN (14:24)
--- NOTE | 2018-09-12 16:18 | CP.PCM.PN ---
Subjective - Date & Time of Evaluation Date of Evaluation: 09/12/18 Time of Evaluation: 10:10 - Subjective Subjective: Comfortable, no fevers, not in distress. Objective - Vital Signs/Intake and Output Vital Signs (last 24 hours): Temp Pulse Resp BP Pulse Ox 98 F 53 L 18 115/60 97 09/11/18 16:00 09/11/18 16:00 09/11/18 16:00 09/12/18 09:50 09/11/18 16:00 - Medications Medications: Current Medications Alendronate Sodium (Fosamax) 70 mg PO MON [facility]; Protocol Last Admin: 09/12/18 09:50 Dose: 70 mg Aspirin (Ecotrin) 81 mg PO 0800 [facility]; Protocol Last Admin: 09/12/18 07:59 Dose: 81 mg Atorvastatin Calcium (Lipitor) 10 mg PO DIN [facility] Last Admin: 09/11/18 17:12 Dose: 10 mg Cholecalciferol (Vitamin D) 1,000 intlu PO DAILY [facility] Last Admin: 09/12/18 09:51 Dose: 1,000 intlu Clopidogrel Bisulfate (Plavix) 75 mg PO DAILY [facility]; Protocol Last Admin: 09/12/18 09:50 Dose: 75 mg Docusate Sodium (Colace) 100 mg PO BID PRN; Protocol PRN Reason: Constipation Famotidine (Pepcid) 20 mg PO 1000,2200 [facility] Last Admin: 09/12/18 09:50 Dose: 20 mg Furosemide (Lasix) 40 mg PO DAILY [facility] Last Admin: 09/12/18 09:50 Dose: 40 mg Hydrochlorothiazide (Microzide) 12.5 mg PO 0800 [facility]; Protocol Last Admin: 09/12/18 07:59 Dose: 12.5 mg Hydrocortisone (Cortizone 0.5%) 1 ea TOP BID PRN PRN Reason: Itching / Pruritus Losartan Potassium (Cozaar) 100 mg PO DAILY [facility]; Protocol Last Admin: 09/12/18 09:49 Dose: Not Given Multivitamins (Thera Tab) 1 tab PO DAILY [facility] Last Admin: 09/12/18 09:51 Dose: 1 tab Ondansetron HCl (Zofran Inj) 4 mg IVP Q4H PRN; Protocol PRN Reason: Nausea/Vomiting Oxycodone/Acetaminophen (Percocet 5/325 Mg Tab) 1 tab PO Q6H PRN PRN Reason: Pain, severe (8-10) Stop: 09/13/18 11:07 Last Admin: 09/12/18 14:24 Dose: 1 tab Polyethylene Glycol (Miralax) 17 gm PO BID [facility]; Protocol Last Admin: 09/12/18 09:34 Dose: Not Given Primidone (Mysoline) 50 mg PO HS [facility]; Protocol Last Admin: 09/11/18 21:19 Dose: 50 mg Topiramate (Topamax) 50 mg PO HS [facility]; Protocol Last Admin: 09/11/18 21:19 Dose: 50 mg - Labs Labs: 09/11/18 10:30 09/11/18 10:30 - Constitutional Appears: Chronically Ill - Head Exam Head Exam: NORMAL INSPECTION - Respiratory Exam Respiratory Exam: Decreased Breath Sounds - Cardiovascular Exam Cardiovascular Exam: +S1, +S2 - GI/Abdominal Exam GI & Abdominal Exam: Soft. absent: Tenderness Assessment and Plan - Assessment and Plan (Free Text) Plan: Assessment Left lower extremity skin and structure infection with associated hematoma after trauma, clinically improved HTN dyslipidemia CAD Plan completed 7 days of Vancomycin will continue to monitor clinically off antibiotics since she is at risk for hospital-acquired infections
[2018-09-13] MEDS: Oxycodone/Acetaminophen 5/325 mg Tab PO PRN (02:27)
--- NOTE | 2018-09-13 07:01 | CP.PCM.PN ---
Subjective - Date & Time of Evaluation Date of Evaluation: 09/13/18 Time of Evaluation: 07:00 - Subjective Subjective: Resident Progress Note for Hospitalist Service Objective - Vital Signs/Intake and Output Vital Signs (last 24 hours): Temp Pulse Resp BP Pulse Ox 97.8 F 82 18 121/68 96 09/12/18 16:00 09/12/18 16:00 09/12/18 16:00 09/12/18 16:00 09/12/18 16:00 - Medications Medications: Current Medications Alendronate Sodium (Fosamax) 70 mg PO MON [facility]; Protocol Last Admin: 09/12/18 09:50 Dose: 70 mg Aspirin (Ecotrin) 81 mg PO 0800 [facility]; Protocol Last Admin: 09/12/18 07:59 Dose: 81 mg Atorvastatin Calcium (Lipitor) 10 mg PO DIN [facility] Last Admin: 09/12/18 17:30 Dose: 10 mg Cholecalciferol (Vitamin D) 1,000 intlu PO DAILY [facility] Last Admin: 09/12/18 09:51 Dose: 1,000 intlu Clopidogrel Bisulfate (Plavix) 75 mg PO DAILY [facility]; Protocol Last Admin: 09/12/18 09:50 Dose: 75 mg Docusate Sodium (Colace) 100 mg PO BID PRN; Protocol PRN Reason: Constipation Famotidine (Pepcid) 20 mg PO 1000,2200 [facility] Last Admin: 09/12/18 21:50 Dose: 20 mg Furosemide (Lasix) 40 mg PO DAILY [facility] Last Admin: 09/12/18 09:50 Dose: 40 mg Hydrochlorothiazide (Microzide) 12.5 mg PO 0800 [facility]; Protocol Last Admin: 09/12/18 07:59 Dose: 12.5 mg Hydrocortisone (Cortizone 0.5%) 1 ea TOP BID PRN PRN Reason: Itching / Pruritus Losartan Potassium (Cozaar) 100 mg PO DAILY [facility]; Protocol Last Admin: 09/12/18 09:49 Dose: Not Given Multivitamins (Thera Tab) 1 tab PO DAILY [facility] Last Admin: 09/12/18 09:51 Dose: 1 tab Ondansetron HCl (Zofran Inj) 4 mg IVP Q4H PRN; Protocol PRN Reason: Nausea/Vomiting Oxycodone/Acetaminophen (Percocet 5/325 Mg Tab) 1 tab PO Q6H PRN PRN Reason: Pain, severe (8-10) Stop: 09/13/18 11:07 Last Admin: 09/13/18 02:27 Dose: 1 tab Polyethylene Glycol (Miralax) 17 gm PO BID [facility]; Protocol Last Admin: 09/12/18 17:30 Dose: 17 gm Primidone (Mysoline) 50 mg PO HS [facility]; Protocol Last Admin: 09/12/18 21:49 Dose: 50 mg Topiramate (Topamax) 50 mg PO HS [facility]; Protocol Last Admin: 09/12/18 21:49 Dose: 50 mg - Labs Labs: 09/11/18 10:30 09/11/18 10:30 - Additional Findings Additional findings: - Constitutional Appears: No Acute Distress - Head Exam Head Exam: ATRAUMATIC, NORMOCEPHALIC - Eye Exam Eye Exam: EOMI, Normal appearance - ENT Exam ENT Exam: Mucous Membranes Moist - Neck Exam Neck Exam: Normal Inspection - Respiratory Exam Respiratory Exam: Clear to Auscultation Bilateral, NORMAL BREATHING PATTERN. absent: Accessory Muscle Use - Cardiovascular Exam Cardiovascular Exam: RRR, +S1, +S2 - GI/Abdominal Exam GI & Abdominal Exam: Soft, Normal Bowel Sounds. absent: Guarding, Rebound - Extremities Exam Extremities Exam: absent: Calf Tenderness Additional comments: left leg has multiple lesions that are healing with granulation tissue; no gross bleeding or drainage appreciated, improved Assessment and Plan - Assessment and Plan (Free Text) Assessment: 72 yo F with pmhx of HTN, HLD, CAD s/p 2 stents last in 2009, who presents to the ED for worsening left lower leg pain/swelling s/p recent hospital discharge, now admitted to TCU. Plan: LLE swelling - afebrile, no leukocytosis - MRI showed hematoma vs. osteomyelitis - Extremity U/S showed fluid collection more likely hematoma than abscess - patient refused surgical intervention - US LLE: negative for DVT - vancomycin discontinued - Percocet PRN for pain management - ID and podiatry consulted. Recs appreciated. HTN - continue Losartan, HCTZ, Lasix Anemia - stable, continue monitor - iron studies point to iron deficiency anemia CAD s/p stents - continue ASA, Plavix PPX - Pepcid
[2018-09-13 07:33] LABS: BASO # 0.06 K/mm3 (0.0-2.0); BASO % 0.8 % (0.0-3.0); EOS # 0.2 (0.0-0.7); EOS % 3.1 % (1.5-5.0); GRAN # 4.58 (1.4-6.5); GRAN % 59.8 % (50.0-68.0); HEMOGLOBIN 11.1 g/dL (12.0-16.0); LYMPH % 26.4 % (22.0-35.0); MEAN CELL VOLUME 87.1 fl (80.0-105.0); MEAN CORPUSCULAR HEMOGLOBIN 28.5 pg (25.0-35.0); MEAN CORPUSCULAR HGB CONC 32.7 g/dl (31.0-37.0); MEAN PLATELET VOLUME 8.4 fl (7.0-11.0); MONO # 0.8 (0.1-0.6); MONO % 9.9 % (1.0-6.0); RBC 3.89 10^6/uL (3.5-6.1); RED CELL DISTRIBUTION WIDTH 13.1 % (11.5-14.5); WHITE BLOOD COUNT 7.7 10^3/uL (4.5-11.0)
[2018-09-13 07:49] LABS: ALB/GLOB RATIO 1.4 (1.1-1.8); ALBUMIN 4.1 g/dL (3.0-4.8); ALT/SGPT 39 U/L (7-56); AST/SGOT 39 U/L (14-36); BLOOD UREA NITROGEN 23 mg/dL (7-21); CALCIUM 9.3 mg/dL (8.4-10.5); GFR NON-AFRICAN AMERICAN 54
[2018-09-13] MEDS: POLYETHYLENE GLYCOL 3350 17 GM/Dose PACKET PO SCH ×2 (10:11→17:25)
[2018-09-13] MEDS: Cholecalciferol 1,000 INTLU TAB PO SCH (10:12)
[2018-09-13] MEDS: Multivitamin Therapeutic Tab PO SCH (10:12)
[2018-09-13] MEDS ORDERED: Oxycodone/Acetaminophen 5/325 mg Tab PO ONE (13:57)
[2018-09-13 16:02] VITALS: BP 128/57; PULSE 68; TEMP 98.1; O2SAT 98
--- NOTE | 2018-09-13 16:08 | CP.PCM.DIS ---
<Maday Botello L - Last Filed: 09/13/18 17:36> Provider - Provider Date of Admission: 09/06/18 13:41 Attending physician: Tanya Painter MD Primary care physician: Scooter Rogers MD Consults: 09/06/18 15:03 Physician Consult Routine Comment: Consulting Provider: Eagle Fernando Consulting Physician: Eagle Fernando Reason for Consult: IVABx 09/06/18 15:14 Social Work Referral Routine Comment: equipment etc. Physician Instructions: Reason For Exam: discharge planning Time Spent in preparation of Discharge (in minutes): 35 Diagnosis - Discharge Diagnosis (1) Hematoma of leg Status: Resolved Hospital Course - Lab Results Lab Results: Most Recent Lab Values WBC 7.7 10^3/uL (4.5-11.0) 09/13/18 07:00 RBC 3.89 10^6/uL (3.5-6.1) 09/13/18 07:00 Hgb 11.1 g/dL (12.0-16.0) L 09/13/18 07:00 Hct 33.9 % (36.0-48.0) L 09/13/18 07:00 MCV 87.1 fl (80.0-105.0) 09/13/18 07:00 MCH 28.5 pg (25.0-35.0) 09/13/18 07:00 MCHC 32.7 g/dl (31.0-37.0) 09/13/18 07:00 RDW 13.1 % (11.5-14.5) 09/13/18 07:00 Plt Count 291 10^3/uL (120.0-450.0) 09/13/18 07:00 MPV 8.4 fl (7.0-11.0) 09/13/18 07:00 Gran % 59.8 % (50.0-68.0) 09/13/18 07:00 Lymph % (Auto) 26.4 % (22.0-35.0) 09/13/18 07:00 [place] % (Auto) 9.9 % (1.0-6.0) H 09/13/18 07:00 Eos % (Auto) 3.1 % (1.5-5.0) 09/13/18 07:00 Baso % (Auto) 0.8 % (0.0-3.0) 09/13/18 07:00 Gran # 4.58 (1.4-6.5) 09/13/18 07:00 Lymph # (Auto) 2.0 (1.2-3.4) 09/13/18 07:00 [place] # (Auto) 0.8 (0.1-0.6) H 09/13/18 07:00 Eos # (Auto) 0.2 (0.0-0.7) 09/13/18 07:00 Baso # (Auto) 0.06 K/mm3 (0.0-2.0) 09/13/18 07:00 Sodium 138 mmol/L (132-148) 09/13/18 07:00 Potassium 3.8 mmol/L (3.6-5.0) 09/13/18 07:00 Chloride 96 mmol/L (98-107) L 09/13/18 07:00 Carbon Dioxide 34 mmol/L (21-33) H 09/13/18 07:00 Anion Gap 11 (10-20) 09/13/18 07:00 BUN 23 mg/dL (7-21) H 09/13/18 07:00 Creatinine 1.0 mg/dl (0.7-1.2) 09/13/18 07:00 Est GFR ( Amer) > 60 09/13/18 07:00 Est GFR (Non-Af Amer) 54 09/13/18 07:00 Random Glucose 106 mg/dL (70-110) 09/13/18 07:00 Calcium 9.3 mg/dL (8.4-10.5) 09/13/18 07:00 Phosphorus 4.3 mg/dL (2.5-4.5) 09/13/18 07:00 Magnesium 2.4 mg/dL (1.7-2.2) H 09/13/18 07:00 Total Bilirubin 0.6 mg/dL (0.2-1.3) 09/13/18 07:00 AST 39 U/L (14-36) H 09/13/18 07:00 ALT 39 U/L (7-56) 09/13/18 07:00 Alkaline Phosphatase 101 U/L (38-126) 09/13/18 07:00 Total Protein 7.2 g/dL (5.8-8.3) 09/13/18 07:00 Albumin 4.1 g/dL (3.0-4.8) 09/13/18 07:00 Globulin 3.0 gm/dL 09/13/18 07:00 Albumin/Globulin Ratio 1.4 (1.1-1.8) 09/13/18 07:00 - Hospital Course Hospital Course: On admission: 72 yo F with pmhx of HTN, HLD, CAD s/p 2 stents last in 2009, who presents to the ED for worsening left lower leg pain and swelling. Pain is 9/10, constant, burning/pressure in nature, aggravated by ambulation/sitting for long period of time, alleviated by leg elevation, extends from the knee to the foot. Patient was just discharged from [facility] with one day of hospital admission s/p mechanical fall. Imaging studies, lab were normal and patient discharged on percocet prn and bacitracin for her lower limb superficial wounds. Patient reports progressive symptoms of pressure and pain in the left leg. She denied associated fever, chills, wound discharge, muscle weakness, loss of sensation. Patient was not able to see her PMD Dr Rogers as his office was closed for the holiday. She also denied CP, SOB, palpitations, headache, dizziness, changes in bowel movement, urinary symptoms. She has been using walker with difficulty ambulating due to pain and pressure. During hospital stay: Patient was started on vancomycin. ID was consulted. Extremity ultrasound showed fluid collection more likely hematoma than abscess, negative for DVT. MRI was done which showed hematoma vs. osteomyelitis. Patient finished course of vancomycin. Surgery was consulted for possible drainage however patient refused surgical intervention. Patient was discharged to TCU for further rehabilitation. Patient was optimized for discharge. Please see EMR for full summary. - Date & Time of H&P Date of H&P: 09/02/18 Time of H&P: 02:30 Discharge Exam - Additional Findings Additional findings: - Constitutional Appears: No Acute Distress - Head Exam Head Exam: ATRAUMATIC, NORMOCEPHALIC - Eye Exam Eye Exam: EOMI, Normal appearance - ENT Exam ENT Exam: Mucous Membranes Moist - Neck Exam Neck Exam: Normal Inspection - Respiratory Exam Respiratory Exam: Clear to Auscultation Bilateral, NORMAL BREATHING PATTERN. absent: Accessory Muscle Use - Cardiovascular Exam Cardiovascular Exam: RRR, +S1, +S2 - GI/Abdominal Exam GI & Abdominal Exam: Soft, Normal Bowel Sounds. absent: Guarding, Rebound - Extremities Exam Extremities Exam: absent: Calf Tenderness Additional comments: left leg has multiple lesions that are healing with granulation tissue; no gross bleeding or drainage appreciated, improved Discharge Plan - Follow Up Plan Condition: GOOD Disposition: HOME/ ROUTINE Patient education suggested?: Yes Instructions: Cellulitis (Skin Infection), Adult (DC) Additional Instructions: Please follow up with your primary medical doctor Dr. Rogers within one week. Resume your home medications as they are prescribed. Return to ED if symptoms return or worsen. Referrals: Scooter Rogers MD [Primary Care Provider] - <Tanya Painter - Last Filed: 09/14/18 08:49> Provider - Provider Date of Admission: 09/06/18 13:41 Attending physician: Tanya Painter MD Primary care physician: Scooter Rogers MD Consults: 09/06/18 15:03 Physician Consult Routine Comment: Consulting Provider: Eagle Fernando Consulting Physician: Eagle Fernando Reason for Consult: IVABx 09/06/18 15:14 Social Work Referral Routine Comment: equipment etc. Physician Instructions: Reason For Exam: discharge planning Hospital Course - Lab Results Lab Results: Most Recent Lab Values WBC 7.7 10^3/uL (4.5-11.0) 09/13/18 07:00 RBC 3.89 10^6/uL (3.5-6.1) 09/13/18 07:00 Hgb 11.1 g/dL (12.0-16.0) L 09/13/18 07:00 Hct 33.9 % (36.0-48.0) L 09/13/18 07:00 MCV 87.1 fl (80.0-105.0) 09/13/18 07:00 MCH 28.5 pg (25.0-35.0) 09/13/18 07:00 MCHC 32.7 g/dl (31.0-37.0) 09/13/18 07:00 RDW 13.1 % (11.5-14.5) 09/13/18 07:00 Plt Count 291 10^3/uL (120.0-450.0) 09/13/18 07:00 MPV 8.4 fl (7.0-11.0) 09/13/18 07:00 Gran % 59.8 % (50.0-68.0) 09/13/18 07:00 Lymph % (Auto) 26.4 % (22.0-35.0) 09/13/18 07:00 [place] % (Auto) 9.9 % (1.0-6.0) H 09/13/18 07:00 Eos % (Auto) 3.1 % (1.5-5.0) 09/13/18 07:00 Baso % (Auto) 0.8 % (0.0-3.0) 09/13/18 07:00 Gran # 4.58 (1.4-6.5) 09/13/18 07:00 Lymph # (Auto) 2.0 (1.2-3.4) 09/13/18 07:00 [place] # (Auto) 0.8 (0.1-0.6) H 09/13/18 07:00 Eos # (Auto) 0.2 (0.0-0.7) 09/13/18 07:00 Baso # (Auto) 0.06 K/mm3 (0.0-2.0) 09/13/18 07:00 Sodium 138 mmol/L (132-148) 09/13/18 07:00 Potassium 3.8 mmol/L (3.6-5.0) 09/13/18 07:00 Chloride 96 mmol/L (98-107) L 09/13/18 07:00 Carbon Dioxide 34 mmol/L (21-33) H 09/13/18 07:00 Anion Gap 11 (10-20) 09/13/18 07:00 BUN 23 mg/dL (7-21) H 09/13/18 07:00 Creatinine 1.0 mg/dl (0.7-1.2) 09/13/18 07:00 Est GFR ( Amer) > 60 09/13/18 07:00 Est GFR (Non-Af Amer) 54 09/13/18 07:00 Random Glucose 106 mg/dL (70-110) 09/13/18 07:00 Calcium 9.3 mg/dL (8.4-10.5) 09/13/18 07:00 Phosphorus 4.3 mg/dL (2.5-4.5) 09/13/18 07:00 Magnesium 2.4 mg/dL (1.7-2.2) H 09/13/18 07:00 Total Bilirubin 0.6 mg/dL (0.2-1.3) 09/13/18 07:00 AST 39 U/L (14-36) H 09/13/18 07:00 ALT 39 U/L (7-56) 09/13/18 07:00 Alkaline Phosphatase 101 U/L (38-126) 09/13/18 07:00 Total Protein 7.2 g/dL (5.8-8.3) 09/13/18 07:00 Albumin 4.1 g/dL (3.0-4.8) 09/13/18 07:00 Globulin 3.0 gm/dL 09/13/18 07:00 Albumin/Globulin Ratio 1.4 (1.1-1.8) 09/13/18 07:00 Attending/Attestation - Attestation I have personally seen and examined this patient.: Yes I have fully participated in the care of the patient.: Yes I have reviewed all pertinent clinical information, including history, physical exam and plan: Yes Notes (Text): 09/14/18 08:44 Medical record note made by the resident after discussion with my direction and input after the patient was personally seen and examined by me. I have reviewed the chart and agree that the record accurately reflects by personal performance of the history, physical exam, data review, and medical decision-making, in the course for the patient. I have also personally directed the plan of care. 72 y/o F with PMH of HTN, CAD s/p stent was recently discharged from hospital after being managed for LLE cellulitis with hematoma. Pt was transferred to TCU for rehabilitation. She has completed antibiotics for cellulitis.Her leg pain has improved. She is feeling at her base line and wanted to be discharged 1 day earlier. Patient will be discharged home and will follow up with PCP. Management plan was discussed in detail with patient. Education was provided.
--- NOTE | 2018-09-13 22:43 | PN ---
DATE: 09/13/2018 SUBJECTIVE: The patient is in bed in no acute distress, nontoxic. OBJECTIVE: VITAL SIGNS: On exam, temperature is 98, blood pressure is 120/50, respiratory rate of 18, heart rate of 52. HEENT: Unremarkable. NECK: Supple. LUNGS: Have decreased breath sounds. HEART: Normal S1, S2. ABDOMEN: Soft. LABORATORY EXAMINATION: Noted. ASSESSMENT AND PLAN: This is a 72-year-old female who was seen earlier today in room 316 with left lower extremity skin structure infection associated with hematoma, hypertension and dyslipidemia, off of antibiotics. We will follow with you. Eagle Fernando MD
== END 2018-09-13 19:00 | disposition home or self-care (01) | DRG 603 ==
LOC: TRCU 13:41
PROVIDERS: ADMIT Internal Medicine; ATTEND Internal Medicine
PROC: F07Z9ZZ Gait Training/Functional Ambulation Treatment (ICD-10-PCS; principal; 2018-09-07)
PROC: F08Z4ZZ Home Management Treatment (ICD-10-PCS; 2018-09-07)
DX: L03.116 Cellulitis of left lower limb (principal); S80.12XD Contusion of left lower leg, subsequent encounter; W19.XXXD Unspecified fall, subsequent encounter; I25.10 Atherosclerotic heart disease of native coronary artery without angina pectoris; I10 Essential (primary) hypertension; M81.0 Age-related osteoporosis without current pathological fracture; E78.5 Hyperlipidemia, unspecified; L84 Corns and callosities; Z85.41 Personal history of malignant neoplasm of cervix uteri; Z95.5 Presence of coronary angioplasty implant and graft; Z87.891 Personal history of nicotine dependence

== ENCOUNTER 2018-11-30 13:38 | Outpatient (CLI) | payer BC | END 2018-11-30 13:39 | disposition home or self-care (01) | LOC: RAD 13:39 ==

== ENCOUNTER 2018-12-26 06:19 | Outpatient (CLI) | payer BC | END 2018-12-26 06:20 | disposition home or self-care (01) | LOC: CARDIO 06:19 | DX: R07.9 Chest pain, unspecified (principal) ==